=== PATIENT | female | born 1950 | race Caucasian/White ===

== ENCOUNTER 2016-06-22 14:58 | Emergency (ER) | payer MEDICARE ==
[2016-06-22 15:12] VITALS: BP 127/94; PULSE 92; RESP 20; TEMP 97.5
[2016-06-22] MEDS ORDERED: DIPH,PERTUS(ACELL)TETVAC-LF 0.5 ML VIAL IM ONE (15:27)
[2016-06-22] MEDS ORDERED: TOPICAL SKIN ADHESIVE 1 EACH AMP TOPICAL ONE (15:27)
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
== END 2016-06-22 19:50 | disposition home or self-care (01) ==
LOC: EC 14:58
DX: S61.210A Laceration without foreign body of right index finger without damage to nail, initial encounter (principal); F10.129 Alcohol abuse with intoxication, unspecified; J44.9 Chronic obstructive pulmonary disease, unspecified; M79.7 Fibromyalgia; E11.9 Type 2 diabetes mellitus without complications; E07.9 Disorder of thyroid, unspecified; I25.2 Old myocardial infarction; F41.8 Other specified anxiety disorders; G25.81 Restless legs syndrome; Z23 Encounter for immunization; Z87.19 Personal history of other diseases of the digestive system; Z87.01 Personal history of pneumonia (recurrent); Z85.41 Personal history of malignant neoplasm of cervix uteri; Z87.891 Personal history of nicotine dependence; Z79.52 Long term (current) use of systemic steroids; Z79.84 Long term (current) use of oral hypoglycemic drugs; Z79.899 Other long term (current) drug therapy; Z79.51 Long term (current) use of inhaled steroids; Z90.710 Acquired absence of both cervix and uterus; W18.30XA Fall on same level, unspecified, initial encounter; Y09 Assault by unspecified means; Y92.009 Unspecified place in unspecified non-institutional (private) residence as the place of occurrence of the external cause
CPT/HCPCS: 12001; 82075; 90715; 99284

== ENCOUNTER 2016-11-02 07:32 | Day surgery (SDC) | payer MEDICARE ==
[2016-10-28 16:30] VITALS: BMI 27.4
[~2016-11-02 07:32] MED LIST: LACTATED RINGERS 1,000 ML IV SCH
[2016-11-02] MEDS ORDERED: LACTATED RINGERS 1,000 ML IV ONE (07:37)
[2016-11-02 07:51] LABS: Glucose,Whole Blood 262 mg/dL (75-99)
[2016-11-02 07:54] VITALS: TEMP 98
[2016-11-02] MEDS ORDERED: PROPOFOL 10 MG/ML 20 ML VIAL IV ONE (08:20)
[2016-11-02] MEDS ORDERED: IV FLUID CONTINUATION 1,000 ML IV ONE (08:58)
--- NOTE | 2016-11-02 09:13 | P.PCN ---
Date of Procedure: 11/02/16 Preoperative Diagnosis: Postoperative Diagnosis: Procedure(s) Performed: Procedure: Total colonoscopy. Preoperative diagnosis: Screening for neoplasia, patient has history of polyps. Postoperative diagnosis: Less than ideal preparation with no significant findings. Preparation: HalfLytely prep. Sedation: Was provided by anesthesia. Brief clinical history: The patient is a 66-year-old female who is scheduled for this evaluation for screening for neoplasia because of history of polyps. Her last exam was several years ago. Procedure: With the patient on her left lateral decubitus position and after informed consent and adequate sedation, the perianal area was inspected and it did not show any fissures or fistulas. There were no masses felt on digital rectal examination. The Olympus CFQ 160L video colonoscope was then inserted in the rectum in the usual fashion and advanced to the cecum. Unfortunately, the preparation was less than ideal and there was significant amount of fecal material that I could not wash off or suction completely. Where visualized the mucosa appeared healthy. No obvious diverticular disease. There was no large polyps or cancer. A diminutive polyp was seen in the right colon but I was not able to remove because of the amount of stools around it. The patient tolerated the procedure well. Plan: I summarized the findings to the patient and I recommended a repeat exam in 3-5 years, possibly after a 2 day preparation. She will follow-up with you as planned. Implants: Indications for Procedure: Operative Findings: Description of Procedure:
[2016-11-02 09:14] VITALS: PULSE 86
[2016-11-02 09:23] LABS: Glucose,Whole Blood 241 mg/dL (75-99)
[2016-11-02 09:24] VITALS: BP 129/81; RESP 20
== END 2016-11-02 10:08 | disposition home or self-care (01) ==
LOC: ORWHC2ENDO 07:32
DX: Z12.11 Encounter for screening for malignant neoplasm of colon (principal); Z86.010 Personal history of colon polyps; K63.5 Polyp of colon; G57.93 Unspecified mononeuropathy of bilateral lower limbs; J44.9 Chronic obstructive pulmonary disease, unspecified; J45.909 Unspecified asthma, uncomplicated; E11.9 Type 2 diabetes mellitus without complications; E07.9 Disorder of thyroid, unspecified; M79.7 Fibromyalgia; I25.2 Old myocardial infarction; Z79.84 Long term (current) use of oral hypoglycemic drugs; Z79.4 Long term (current) use of insulin; Z79.51 Long term (current) use of inhaled steroids; Z79.899 Other long term (current) drug therapy
CPT/HCPCS: J2704; G0105

== ENCOUNTER 2017-02-02 04:37 | Inpatient (IN) | payer MEDICARE ==
[2017-02-02 04:46] LABS: Glucose,Whole Blood 563 mg/dL (75-99)
[2017-02-02] MEDS ORDERED: SODIUM CHLORIDE 0.9% 500 ML IV STA (04:52)
--- NOTE | 2017-02-02 04:58 | ED ---
General Adult HPI - General Chief complaint: Shortness of Breath Stated complaint: Blood Sugar Time Seen by Provider: 02/02/17 04:40 Source: patient, EMS Mode of arrival: EMS Limitations: no limitations - History of Present Illness Initial comments: Patient is 66-year-old woman by EMS with a number of complaints, including the fact that she had a fall, she has low abdominal pain, she has chest pain, she feels lightheaded and short of breath. This all symptoms been going on over 24 hours. She is not able to characterize the pains well. In addition she noted that her blood sugar was high. Onset/Timin -: days(s) Location: chest, abdomen Radiation: non-radiation Quality: aching Consistency: constant Improves with: none Worsens with: none Associated Symptoms: chest pain, shortness of breath Treatments Prior to Arrival: none - Related Data Home Medications Medication Instructions Recorded Confirmed Arformoterol Tartrate [Brovana] 15 mcg INHALATION RT-BID 05/16/15 11/02/16 Beclomethasone Dipropionate [Qvar 2 puff INHALATION RT-BID 05/16/15 11/02/16 80 mcg/puff] Furosemide [Lasix] 20 mg PO DAILY 05/16/15 11/02/16 Glimepiride [Amaryl] 1.5 tab PO AC-BID 05/16/15 11/02/16 HYDROcodone/APAP 10-325MG [[place] 1 tab PO Q4-6H PRN 05/16/15 10/28/16 10-325] Ipratropium Nebulized [Atrovent 0.5 mg INHALATION QID 05/16/15 11/02/16 Nebulized] clonazePAM [KlonoPIN] 1 mg PO DAILY PRN 05/16/15 11/02/16 metFORMIN HCL [metFORMIN HCL ER] 750 mg PO BID 05/16/15 11/02/16 rOPINIRole HCL [Requip] 2 mg PO HS 05/16/15 11/02/16 Budesonide [Pulmicort] 0.5 mg INHALATION BID 05/17/16 11/02/16 Levothyroxine Sodium [Synthroid] 125 mcg PO DAILY 05/17/16 11/02/16 Cyclobenzaprine HCl 10 mg PO HS 10/28/16 11/02/16 [Cyclobenzaprine HCl] Diazepam [Valium] 5 mg PO HS 10/28/16 11/02/16 Gabapentin [Neurontin] 100 mg PO TID 10/28/16 11/02/16 Insulin Glargine,Hum.rec.anlog 20 units SQ HS 10/28/16 11/02/16 [Toujany Solostar] Allergies Allergy/AdvReac Type Severity Reaction Status Date / Time No Known Allergies Allergy Verified 02/02/17 07:06 Review of Systems ROS Statement: Those systems with pertinent positive or pertinent negative responses have been documented in the HPI. ROS Other: All systems not noted in ROS Statement are negative. Constitutional: Reports: weakness Respiratory: Reports: cough, dyspnea Cardiovascular: Reports: chest pain Gastrointestinal: Reports: abdominal pain Genitourinary: Reports: dysuria Musculoskeletal: Denies: back pain Skin: Denies: rash Neurological: Reports: weakness. Denies: numbness, paresthesias Past Medical History Past Medical History: Cancer, Chest Pain / Angina, COPD, Diabetes Mellitus, Fibromyalgia, Sleep Apnea/CPAP/BIPAP, Thyroid Disorder Additional Past Medical History / Comment(s): Hx of Fractured Pelvis, RLS. PNA , PAST HX Stress Incontinence. Cervical Cancer. PVD. Neuropathy bilateral legs OCC. Cervical DDD. hypotensive episode - DENIES. DENIES [place]. Last Myocardial Infarction Date:: 2014? History of Any Multi-Drug Resistant Organisms: None Reported Past Surgical History: Section, Heart Catheterization, Hysterectomy Additional Past Surgical History / Comment(s): Surgery for Ectopic Preg, C-S X2 , EXC Jamil cataracts. COLONOSCOPY. Past Anesthesia/Blood Transfusion Reactions: Previous Problems w/ Anesthesia Additional Past Anesthesia/Blood Transfusion Reaction / Comment(s): States felt pain with block for X1. Past Psychological History: Anxiety, Depression Smoking Status: Current every day smoker - Past Family History Father Family Medical History: Coronary Artery Disease (CAD) Sister(s) Family Medical History: COPD Mother Family Medical History: Seizure Disorder Additional Family Medical History / Comment(s): BRAIN ANEURYSM General Exam Limitations: no limitations General appearance: alert, in no apparent distress Head exam: Present: atraumatic, normocephalic Eye exam: Present: normal appearance. Absent: scleral icterus, conjunctival injection ENT exam: Present: mucous membranes dry Neck exam: Present: normal inspection, full ROM Respiratory exam: Present: normal lung sounds bilaterally. Absent: respiratory distress, wheezes, rales, rhonchi, stridor Cardiovascular Exam: Present: normal rhythm, tachycardia, normal heart sounds. Absent: systolic murmur, diastolic murmur, rubs, gallop GI/Abdominal exam: Present: soft, tenderness (There is mild diffuse tenderness without rebound or guarding), diminished bowel sounds. Absent: distended, guarding, rebound, rigid, mass, pulsatile mass, hernia Extremities exam: Present: normal inspection, normal capillary refill. Absent: pedal edema, calf tenderness Back exam: Present: normal inspection. Absent: CVA tenderness (R), CVA tenderness (L) Neurological exam: Present: alert Skin exam: Present: warm, dry, intact, normal color. Absent: rash Course Vital Signs 02/02/17 02/02/17 04:38 07:08 Temperature 97.9 F Pulse Rate 124 H 74 Respiratory 22 18 Rate Blood Pressure 116/64 118/61 O2 Sat by Pulse 97 100 Oximetry EKG Findings - EKG Results: EKG: interpreted by NICKY, sinus rhythm, normal axis EKG shows: tachycardia (Rate approximately 121 bpm) Medical Decision Making - Lab Data Result diagrams: 02/02/17 04:50 02/02/17 04:50 Lab Results 02/02/17 02/02/17 02/02/17 Range/Units 04:44 04:50 04:50 WBC (3.8-10.6) k/uL RBC (3.80-5.40) m/uL Hgb (11.4-16.0) gm/dL Hct (34.0-46.0) % MCV (80.0-100.0) fL MCH (25.0-35.0) pg MCHC (31.0-37.0) g/dL RDW (11.5-15.5) % Plt Count (150-450) k/uL Sodium 130 L (137-145) mmol/L Potassium 5.3 H (3.5-5.1) mmol/L Chloride 94 L (98-107) mmol/L Carbon Dioxide 8 L* (22-30) mmol/L Anion Gap 28 mmol/L BUN 28 H (7-17) mg/dL Creatinine 1.29 H (0.52-1.04) mg/dL Est GFR (MDRD) Af Amer 50 (>60 ml/min/1.73 sqM) Est GFR (MDRD) Non-Af 42 (>60 ml/min/1.73 sqM) Glucose 607 H* (74-99) mg/dL POC Glucose (mg/dL) 563 H (75-99) mg/dL POC Glu Mail Messenger ID Radha Gray Plasma Lactic Acid Mustapha (0.7-2.0) mmol/L Calcium 9.0 (8.4-10.2) mg/dL Total Bilirubin 1.3 (0.2-1.3) mg/dL AST 28 (14-36) U/L ALT 7 L (9-52) U/L Alkaline Phosphatase 123 (38-126) U/L Troponin I (0.000-0.034) ng/mL Total Protein 6.0 L (6.3-8.2) g/dL Albumin 3.5 (3.5-5.0) g/dL Amylase 85 (30-110) U/L Lipase 29 (23-300) U/L Urine Color Urine Appearance (Clear) Urine pH (5.0-8.0) Ur Specific [place] (1.001-1.035) Urine Protein (Negative) Urine Glucose (UA) (Negative) Urine Ketones (Negative) Urine Blood (Negative) Urine Nitrite (Negative) Urine Bilirubin (Negative) Urine Urobilinogen (<2.0) mg/dL Ur Leukocyte Esterase (Negative) Urine RBC (0-5) /hpf Urine WBC (0-5) /hpf Ur Squamous Epith Cells (0-4) /hpf Urine Bacteria (None) /hpf Hyaline Casts (0-2) /lpf Urine Mucus (None) /hpf Acetone, Qual Positive (Negative) 02/02/17 02/02/17 02/02/17 Range/Units 04:50 04:50 04:50 WBC 13.6 H (3.8-10.6) k/uL RBC 5.07 (3.80-5.40) m/uL Hgb 14.9 (11.4-16.0) gm/dL Hct 47.6 H (34.0-46.0) % MCV 94.0 (80.0-100.0) fL MCH 29.4 (25.0-35.0) pg MCHC 31.3 (31.0-37.0) g/dL RDW 15.9 H (11.5-15.5) % Plt Count 270 (150-450) k/uL Sodium (137-145) mmol/L Potassium (3.5-5.1) mmol/L Chloride (98-107) mmol/L Carbon Dioxide (22-30) mmol/L Anion Gap mmol/L BUN (7-17) mg/dL Creatinine (0.52-1.04) mg/dL Est GFR (MDRD) Af Amer (>60 ml/min/1.73 sqM) Est GFR (MDRD) Non-Af (>60 ml/min/1.73 sqM) Glucose (74-99) mg/dL POC Glucose (mg/dL) (75-99) mg/dL POC Glu Mail Messenger ID Plasma Lactic Acid Must[place]ha 1.5 (0.7-2.0) mmol/L Calcium (8.4-10.2) mg/dL Total Bilirubin (0.2-1.3) mg/dL AST (14-36) U/L ALT (9-52) U/L Alkaline Phosphatase (38-126) U/L Troponin I <0.012 (0.000-0.034) ng/mL Total Protein (6.3-8.2) g/dL Albumin (3.5-5.0) g/dL Amylase (30-110) U/L Lipase (23-300) U/L Urine Color Urine Appearance (Clear) Urine pH (5.0-8.0) Ur Specific [place] (1.001-1.035) Urine Protein (Negative) Urine Glucose (UA) (Negative) Urine Ketones (Negative) Urine Blood (Negative) Urine Nitrite (Negative) Urine Bilirubin (Negative) Urine Urobilinogen (<2.0) mg/dL Ur Leukocyte Esterase (Negative) Urine RBC (0-5) /hpf Urine WBC (0-5) /hpf Ur Squamous Epith Cells (0-4) /hpf Urine Bacteria (None) /hpf Hyaline Casts (0-2) /lpf Urine Mucus (None) /hpf Acetone, Qual (Negative) 02/02/17 Range/Units 05:00 WBC (3.8-10.6) k/uL RBC (3.80-5.40) m/uL Hgb (11.4-16.0) gm/dL Hct (34.0-46.0) % MCV (80.0-100.0) fL MCH (25.0-35.0) pg MCHC (31.0-37.0) g/dL RDW (11.5-15.5) % Plt Count (150-450) k/uL Sodium (137-145) mmol/L Potassium (3.5-5.1) mmol/L Chloride (98-107) mmol/L Carbon Dioxide (22-30) mmol/L Anion Gap mmol/L BUN (7-17) mg/dL Creatinine (0.52-1.04) mg/dL Est GFR (MDRD) Af Amer (>60 ml/min/1.73 sqM) Est GFR (MDRD) Non-Af (>60 ml/min/1.73 sqM) Glucose (74-99) mg/dL POC Glucose (mg/dL) (75-99) mg/dL POC Glu Mail Messenger ID Plasma Lactic Acid Mustapha (0.7-2.0) mmol/L Calcium (8.4-10.2) mg/dL Total Bilirubin (0.2-1.3) mg/dL AST (14-36) U/L ALT (9-52) U/L Alkaline Phosphatase (38-126) U/L Troponin I (0.000-0.034) ng/mL Total Protein (6.3-8.2) g/dL Albumin (3.5-5.0) g/dL Amylase (30-110) U/L Lipase (23-300) U/L Urine Color Yellow Urine Appearance Cloudy H (Clear) Urine pH 5.0 (5.0-8.0) Ur Specific [place] 1.017 (1.001-1.035) Urine Protein Negative (Negative) Urine Glucose (UA) 4+ H (Negative) Urine Ketones 4+ H (Negative) Urine Blood Negative (Negative) Urine Nitrite Negative (Negative) Urine Bilirubin Negative (Negative) Urine Urobilinogen 2.0 (<2.0) mg/dL Ur Leukocyte Esterase Negative (Negative) Urine RBC 2 (0-5) /hpf Urine WBC 3 (0-5) /hpf Ur Squamous Epith Cells 2 (0-4) /hpf Urine Bacteria Rare H (None) /hpf Hyaline Casts 3 H (0-2) /lpf Urine Mucus Rare H (None) /hpf Acetone, Qual (Negative) Disposition Clinical Impression: DKA (diabetic ketoacidoses), Abdominal pain, Colitis Disposition: ADMITTED IP TO THIS HOSP Condition: Serious Referrals: Erna Eugene MD [Primary Care Provider] - 1-2 days
[2017-02-02 05:07] LABS: CH 29.6; CHCM 31.8; HCT 47.6 % (34.0-46.0); HDW 2.62; HGB 14.9 gm/dL (11.4-16.0); Immature Gran Flag Marked; MCH 29.4 pg (25.0-35.0); MCHC 31.3 g/dL (31.0-37.0); Mean Platelet Volume 9.2; RBC 5.07 m/uL (3.80-5.40); RDW 15.9 % (11.5-15.5); WBC 13.6 k/uL (3.8-10.6); WBC (Perox) 14.37
[2017-02-02] MEDS ORDERED: ONDANSETRON 4 MG/2 ML VIAL IVP STA (05:18)
[2017-02-02 05:26] LABS: Total Bilirubin 1.3 mg/dL (0.2-1.3)
[2017-02-02 05:44] LABS: Potassium 5.3 mmol/L (3.5-5.1)
--- NOTE | 2017-02-02 05:51 | CT ---
EXAM: CT Abdomen and Pelvis Without Intravenous Contrast CLINICAL HISTORY: Lower abdominal pain TECHNIQUE: Axial computed tomography images of the abdomen and pelvis without intravenous contrast. CTDI is 17.94 mGy and DLP is 919 mGy-cm. This CT exam was performed using one or more of the following dose reduction techniques: automated exposure control, adjustment of the mA and/or kV according to patient size, and/or use of iterative reconstruction technique. COMPARISON: 05/22/2015. FINDINGS: Lower thorax: Fluid is seen within the distal esophagus, which may represent gastric esophageal reflux. ABDOMEN: Liver: Unremarkable. Gallbladder and bile ducts: Unremarkable. No calcified stones. No ductal dilation. Pancreas: The pancreas appears atrophic. No ductal dilation. Spleen: Unremarkable. No splenomegaly. Adrenals: Unremarkable. No mass. Kidneys and ureters: Unremarkable. No obstructing stones. No hydronephrosis. Stomach and bowel: Wall thickening of the distal stomach is seen, which may represent infectious versus inflammatory gastritis. Gastric ulcer disease cannot be definitively excluded. There is wall thickening of the descending colon with associated surrounding pericolonic inflammatory changes consistent with infectious versus inflammatory colitis. Mildly prominent small bowel loops are seen, measuring up to 3 cm in diameter in the right lower quadrant, without definitive evidence of a transition point. Findings likely represent reactive ileus to the above-mentioned findings. Partial small bowel obstruction cannot be definitively excluded. Proximal stomach is distended, which may be secondary to the above-mentioned findings. Fecal material is seen within the distal small bowel, likely secondary to slow transit. Appendix: No findings to suggest acute appendicitis. PELVIS: Bladder: Unremarkable. No stones. Reproductive: Unremarkable as visualized. ABDOMEN and PELVIS: Intraperitoneal space: Small amount of pelvic free fluid is seen, likely secondary to the above-mentioned findings. No evidence of a fluid collection. No free air. Bones/joints: Chronic fracture deformities of the pubic rami and right iliac bone are again noted. No dislocation. Soft tissues: Unchanged. Vasculature: Mild atherosclerotic vascular calcifications involving the intra-abdominal aorta are noted. No abdominal aortic aneurysm. Lymph nodes: Unremarkable. No enlarged lymph nodes. IMPRESSION: 1. Wall thickening of the distal stomach is seen, which may represent infectious versus inflammatory gastritis. Gastric ulcer disease cannot be definitively excluded. 2. Wall thickening of the descending colon with associated surrounding pericolonic inflammatory changes consistent with infectious versus inflammatory colitis. 3. Mildly prominent small bowel loops, measuring up to 3 cm in diameter in the right lower quadrant, without definitive evidence of a transition point. Findings likely represent reactive ileus to the above-mentioned findings. Partial small bowel obstruction cannot be definitively excluded. If there is further clinical concern, repeat CT of the abdomen with oral and IV contrast recommended for further evaluation.
[2017-02-02 06:09] LABS: Appearance,Urine Cloudy (Clear); Bacteria,Urine Rare /hpf; Bilirubin,Urine Negative (Negative); Glucose,Urine (UA) 4+ (Negative); Leukocyte Esterase,Urine Negative (Negative); Mucus,Urine Rare /hpf; Nitrite,Urine Negative (Negative); Particle Count 7193; Protein,Urine Negative (Negative); RBC,Urine 2 /hpf (0-5); Specific Gravity,Urine 1.017 (1.001-1.035); Squamous Epithelial Cell,Urine 2 /hpf (0-4); UA Billing (MACRO vs. MICRO) MICRO; WBC,Urine 3 /hpf (0-5)
[2017-02-02] MEDS ORDERED: LEVOFLOXACIN 750MG-D5W PMX 750 MG in DEXTROSE/WATER 1 150ML.BAG IVPB STA (06:33)
[2017-02-02] MEDS ORDERED: metroNIDAZOLE-NS PMX 500 MG in SALINE 1 100ML.BAG IVPB STA (06:33)
[2017-02-02] MEDS ORDERED: INSULIN REGULAR BOLUS (FROM DRIP BAG) IV ONE (06:36)
[2017-02-02 06:42] LABS: Ketones,Urine 4+ (Negative)
[2017-02-02] MEDS: INSULIN REGULAR 100 UNIT in SODIUM CHLORIDE 0.9% 100 ML IV SCH ×2 (06:52→17:39)
[2017-02-02] MEDS: SODIUM CHLORIDE 0.9% 1,000 ML IV SCH ×2 (06:52→12:19)
[2017-02-02] MEDS ORDERED: MORPHINE SULFATE 4 MG/ML SYRINGE IVP STA (07:04)
[2017-02-02 07:11] LABS: Add Differential Manual Differential
[2017-02-02 07:18] LABS: Band Neutrophils % 23 %; Manual Review Performed; Metamyelocytes % 2 %; Nucleated Red Blood Cells 0 /100 WBC (0-0); Total Cells Counted 200
[2017-02-02 07:19] LABS: Toxic Granulation Present
[2017-02-02 08:21] LABS: Glucose,Whole Blood 442 mg/dL (75-99)
[2017-02-02 09:13] LABS: Anion Gap 21 mmol/L; Blood Urea Nitrogen 27 mg/dL (7-17); Carbon Dioxide 11 mmol/L (22-30); Chloride 102 mmol/L (98-107); Glucose 368 mg/dL (74-99); Non-African American GFR(MDRD) 51 (>60 ml/min/1.73 sqM); Phosphorous 3.3 mg/dL (2.5-4.5); Potassium 3.3 mmol/L (3.5-5.1); Sodium 134 mmol/L (137-145)
[2017-02-02 09:35] LABS: Glucose,Whole Blood 333 mg/dL (75-99)
[2017-02-02] MEDS ORDERED: HYDROcodone/APAP 10-325MG 1 EACH TAB PO ONE (10:57)
[2017-02-02] MEDS ORDERED: clonazePAM 0.5 MG TAB PO PRN (11:37)
[2017-02-02] MEDS ORDERED: ALBUTEROL NEBULIZED 2.5 MG/3 ML INHALATION PRN (11:37)
[2017-02-02] MEDS: D5-0.45% NACL WITH KCL 20MEQ/L 1,000 ML IV SCH ×2 (12:17→18:39)
--- NOTE | 2017-02-02 12:21 | P.HPIM ---
History of Present Illness H&P Date: 02/02/17 Chief Complaint: DKA/colitis This is a 66-year-old female in of Dr. Eugene with a previous medical history significant for a mild coronary artery disease involving the LAD 20-30% , LCx 20-30%, and ostial lesion of the diagonal branch of 40%, diabetes mellitus 2, chronic tobacco use and dependence with a chronic obstructive pulmonary disease, patient was brought into the emergency department at [facility] after she had an episode of the abdominal pain left sided associated with generalized weakness and patient was going to the bathroom yesterday and she had a syncopal episode, she had checked her blood glucose level was high patient ended up coming to the ER at [place] and she was found to have a diabetic ketoacidosis with a bicarb level of 8 her blood glucose levels were greater than 600 she ended up going for a computed tomography scan of the abdomen that did show significant colitis of the left lower quadrant as well as significant induration of the stomach at that time. Patient was started on IV antibiotic in the form of Levaquin 500 mg IV piggyback every 24 hours as well as Flagyl 500 mg IV piggyback every 8 hours, she was placed on insulin drip, she was admitted to the hospital for further evaluation and general surgery consultation was obtained as well as GI consultation. Her lactic acid was 1.5, she was placed on IV fluid resuscitation as well and the patient will have repeated lactic acid in the next 6 hours. Review of Systems Constitutional: Reports chronic pain, Denies anorexia, Denies chronic headaches , Denies lethargy, Denies malaise Eyes: denies blurred vision, denies bulging eye, denies decreased vision Ears: deny: decreased hearing Ears, nose, mouth and throat: Denies dysphagia, Denies neck lump, Denies sore throat Cardiovascular: Denies chest pain, Denies decreased exercise tolerance, Denies dyspnea on exertion, Denies high blood pressure, Denies phlebitis, Denies rapid heart beat, Denies shortness of breath Gastrointestinal: Reports abdominal pain, Reports bloating, Reports diarrhea, Reports nausea, Denies heartburn, Denies hematemesis, Denies hematochezia, Denies melena, Denies vomiting Genitourinary: Denies dysuria, Denies hematuria Menstruation: Reports postmenopausal Musculoskeletal: Denies myalgias Musculoskeletal: absent: ankle pain, ankle stiffness, ankle swelling, elbow pain , elbow stiffness, elbow swelling, foot pain, foot stiffness, foot swelling, hand pain, hand stiffness, hand swelling, hip pain, hip stiffness, hip swelling , knee pain, knee stiffness, knee swelling, shoulder pain, shoulder stiffness, shoulder swelling, wrist pain, wrist stiffness, wrist swelling Integumentary: Denies pruritus, Denies rash Neurological: Denies numbness, Denies weakness Psychiatric: Denies anxiety, Denies depression Endocrine: Denies fatigue, Denies weight change Past Medical History Past Medical History: Cancer, Chest Pain / Angina, COPD, Diabetes Mellitus, Fibromyalgia, Hyperlipidemia, Pneumonia, Sleep Apnea/CPAP/BIPAP, Thyroid Disorder, Vascular Disorder Additional Past Medical History / Comment(s): Takosubo syndrome 2013, cervical cancer/hysterectomy, IDDM type II, neuropathy bilateral legs on occasion, JOSE without device, cervical DDD, past fractured pelvis, RLS, PVD, hypothyroid, benign colon polyyps-removed. Last Myocardial Infarction Date:: 2014? History of Any Multi-Drug Resistant Organisms: None Reported Past Surgical History: Section, Heart Catheterization, Hysterectomy, Tubal Ligation Additional Past Surgical History / Comment(s): 1 fallopian tube removed d/t ectopic , bilateral cataract removal with lens implants, colonoscopies/ benign polypectomies. Past Anesthesia/Blood Transfusion Reactions: Previous Problems w/ Anesthesia Additional Past Anesthesia/Blood Transfusion Reaction / Comment(s): States felt pain with X1. Smoking Status: Current every day smoker - Past Family History Father Family Medical History: Coronary Artery Disease (CAD), Myocardial Infarction (ND ) Additional Family Medical History / Comment(s): Father at the age of 52 yrs from a ND. Sister(s) Family Medical History: COPD Mother Family Medical History: Seizure Disorder Additional Family Medical History / Comment(s): BRAIN ANEURYSM. Mother is 83 yrs old. Medications and Allergies Home Medications Medication Instructions Recorded Confirmed Type Beclomethasone Dipropionate [Qvar 2 puff INHALATION RT-BID 05/16/15 02/02/17 History 80 mcg/puff] Furosemide [Lasix] 20 mg PO DAILY 05/16/15 02/02/17 History HYDROcodone/APAP 10-325MG [Serena 1 tab PO Q4-6H PRN 05/16/15 02/02/17 History 10-325] Ipratropium Nebulized [Atrovent 0.5 mg INHALATION RT-Q6H 05/16/15 02/02/17 History Nebulized] clonazePAM [KlonoPIN] 0.5 - 1 mg PO DAILY PRN 05/16/15 02/02/17 History metFORMIN HCL [metFORMIN HCL ER] 750 mg PO BID 05/16/15 02/02/17 History rOPINIRole HCL [Requip] 2 mg PO HS 05/16/15 02/02/17 History Levothyroxine Sodium [Synthroid] 125 mcg PO DAILY 05/17/16 02/02/17 History Cyclobenzaprine HCl 10 mg PO HS 10/28/16 02/02/17 History [Cyclobenzaprine HCl] Diazepam [Valium] 5 mg PO HS 10/28/16 02/02/17 History Gabapentin [Neurontin] 100 mg PO TID 10/28/16 02/02/17 History Albuterol Sulfate [Proair Hfa] 2 puff INHALATION RT-Q4H PRN 02/02/17 02/02/17 History Aspirin EC [Ecotrin Low Dose] 81 mg PO DAILY 02/02/17 02/02/17 History Bisacodyl 10 mg PO DAILY PRN 02/02/17 02/02/17 History Ergocalciferol [Vitamin D2] 50,000 unit PO Q7D 02/02/17 02/02/17 History Fluticasone Nasal [place] [Flonase 1 spr EA NOSTRIL BID 02/02/17 02/02/17 History Nasal Anabel] Glimepiride [Amaryl] 4 mg PO AC-BID 02/02/17 02/02/17 History Insulin Glargine [Lantus] 20 unit SQ HS 02/02/17 02/02/17 History Potassium Chloride ER [K-Dur 10] 10 meq PO W/BRKFST 02/02/17 02/02/17 History Pravastatin Sodium [Pravachol] 20 mg PO DAILY 02/02/17 02/02/17 History Allergies Allergy/AdvReac Type Severity Reaction Status Date / Time No Known Allergies Allergy Verified 02/02/17 07:06 Physical Exam Vitals: Vital Signs Temp Pulse Resp BP Pulse Ox 02/02/17 11:03 96.9 F L 108 H 16 109/59 92 L 02/02/17 10:07 106 H 18 100/59 94 L 02/02/17 07:08 74 18 118/61 100 02/02/17 04:38 97.9 F 124 H 22 116/64 97 Intake and Output 02/01/17 02/02/17 02/02/17 22:59 06:59 14:59 Other: Weight 70.307 kg - Constitutional General appearance: mild distress - EENT Eyes: anicteric sclerae, EOMI, PERRLA, no ptosis, no scleral icterus, normal appearance ENT: hearing grossly normal, NA/AT, normal oropharynx, no thrush Ears: bilateral: normal - Neck Neck: no lymphadenopathy, normal ROM, no rigidity, no stridor, no thyromegaly Carotids: bilateral: upstroke normal Thyroid: bilateral: normal size - Respiratory Respiratory: bilateral: diminished, negative: dullness, rales, rhonchi, wheezing , prolonged expiration, prolonged inspiration - Cardiovascular Rhythm: regular Heart sounds: normal: S1, S2 Abnormal Heart Sounds: systolic murmur, no S3 Gallop, no S4 Gallop, no click - Gastrointestinal General gastrointestinal: normal bowel sounds, soft, tenderness, no umbilical hernia, no ventral hernia Localized gastrointestinal: tender: LLQ - Integumentary Integumentary: normal, normal turgor - Neurologic Neurologic: CNII-XII intact - Musculoskeletal Musculoskeletal: generalized weakness, strength equal bilaterally - Psychiatric Psychiatric: A&O x's 3, appropriate affect, intact judgment & insight Results CBC & Chem 7: 02/02/17 04:50 02/02/17 20:05 Labs: Abnormal Lab Results - Last 24 Hours (Table) 02/02/17 02/02/17 02/02/17 Range/Units 04:44 04:50 04:50 WBC 13.6 H (3.8-10.6) k/uL Hct 47.6 H (34.0-46.0) % RDW 15.9 H (11.5-15.5) % Neutrophils # (Manual) 11.40 H (1.3-7.7) k/uL Lymphocytes # (Manual) 0.95 L (1.0-4.8) k/uL Monocytes # (Manual) 1.09 H (0-1.0) k/uL Metamyelocytes # (Man) 0.27 H (0) k/uL Sodium 130 L (137-145) mmol/L Potassium 5.3 H (3.5-5.1) mmol/L Chloride 94 L (98-107) mmol/L Carbon Dioxide 8 L* (22-30) mmol/L BUN 28 H (7-17) mg/dL Creatinine 1.29 H (0.52-1.04) mg/dL Glucose 607 H* (74-99) mg/dL POC Glucose (mg/dL) 563 H (75-99) mg/dL ALT 7 L (9-52) U/L Total Protein 6.0 L (6.3-8.2) g/dL Urine Appearance (Clear) Urine Glucose (UA) (Negative) Urine Ketones (Negative) Urine Bacteria (None) /hpf Hyaline Casts (0-2) /lpf Urine Mucus (None) /hpf 02/02/17 02/02/17 02/02/17 Range/Units 05:00 08:19 08:36 WBC (3.8-10.6) k/uL Hct (34.0-46.0) % RDW (11.5-15.5) % Neutrophils # (Manual) (1.3-7.7) k/uL Lymphocytes # (Manual) (1.0-4.8) k/uL Monocytes # (Manual) (0-1.0) k/uL Metamyelocytes # (Man) (0) k/uL Sodium 134 L (137-145) mmol/L Potassium 3.3 L (3.5-5.1) mmol/L Chloride (98-107) mmol/L Carbon Dioxide 11 L (22-30) mmol/L BUN 27 H (7-17) mg/dL Creatinine 1.08 H (0.52-1.04) mg/dL Glucose 368 H (74-99) mg/dL POC Glucose (mg/dL) 442 H (75-99) mg/dL ALT (9-52) U/L Total Protein (6.3-8.2) g/dL Urine Appearance Cloudy H (Clear) Urine Glucose (UA) 4+ H (Negative) Urine Ketones 4+ H (Negative) Urine Bacteria Rare H (None) /hpf Hyaline Casts 3 H (0-2) /lpf Urine Mucus Rare H (None) /hpf 02/02/17 Range/Units 09:32 WBC (3.8-10.6) k/uL Hct (34.0-46.0) % RDW (11.5-15.5) % Neutrophils # (Manual) (1.3-7.7) k/uL Lymphocytes # (Manual) (1.0-4.8) k/uL Monocytes # (Manual) (0-1.0) k/uL Metamyelocytes # (Man) (0) k/uL Sodium (137-145) mmol/L Potassium (3.5-5.1) mmol/L Chloride (98-107) mmol/L Carbon Dioxide (22-30) mmol/L BUN (7-17) mg/dL Creatinine (0.52-1.04) mg/dL Glucose (74-99) mg/dL POC Glucose (mg/dL) 333 H (75-99) mg/dL ALT (9-52) U/L Total Protein (6.3-8.2) g/dL Urine Appearance (Clear) Urine Glucose (UA) (Negative) Urine Ketones (Negative) Urine Bacteria (None) /hpf Hyaline Casts (0-2) /lpf Urine Mucus (None) /hpf Thrombosis Risk Factor Assmnt - DVT/VTE Prophylaxis DVT/VTE Prophylaxis: Pharmacologic Prophylaxis ordered, Mechanical Prophylaxis ordered - Choose All That Apply Any of the Below Risk Factors Present?: Yes Each Factor Represents 1 point: Abnormal pulmonary function (COPD) Other Risk Factors: Yes Each Risk Factor Represents 2 Points: Age 61-74 years, Malignancy Other congenital or acquired thrombophilia - If yes, enter type in comment: No Thrombosis Risk Factor Assessment Total Risk Factor Score: 5 Thrombosis Risk Factor Assessment Level: High Risk Assessment and Plan Plan: 1. Acute colitis possibly infectious Vs Ischemic. patient will be started on Levaquin 500 mg piggyback every 24 hours as well as Flagyl 500 mg piggyback every 8 hours, GI consultation from Dr. Mcfarland patient did have a colonoscopy in October [address] Grande that was totally normal. A did show small polyp that was benign., Keep the patient on nothing per mouth except for sips of water. 2. Diabetic ketoacidosis. Continue IV fluid resuscitation, continue patient on insulin drip, continue to monitor blood glucose level every hour, monitor the patient BMP and phosphorus every 4-6 hours. 2. COPD. we will continue the patient on Pulmicort 1 mg nebulization twice every day, continue DuoNeb 3 mg nebulization 4 times every day. 3. CAD post left heart catheterization. Continue aspirin 81 mg once every day and pravastatin 20 mg at bedtime. 4. Diabetes mellitus type 2 uncontrolled . Currently on insulin drip, we will continue insulin drip for the next 24 hours and we'll transition to her Lantus and Humalog in the next week 4 hours. 5. Hypothyroidism. We will continue levothyroxin 125 g orally once every day. 6. RLS . Continue patient on Requip 2 mg orally bedtime along with Klonopin 0.5 mg at bedtime. 7. Degenerative disc disease of the cervical spine. Continue Flexeril 10 mg orally 3 times every day along with the gabapentin 100 mg orally 2 times every day ND continue Serena as needed for pain. 8. Hyperlipidemia. Continue pravastatin 20 mg at bedtime. 9. Vitamin D deficiency. Hold vitamin D supplement for now. 10. DVT prophylaxis. Continue with Lovenox 40 mg subcutaneously every 24 hours. Bilateral knee-high GOGO hose. 11. GI prophylaxis. Continue Protonix 40 mg orally once every day. 12. Estimated length of stay 2 days. 13. Full code.
[2017-02-02 13:24] LABS: Anion Gap 11 mmol/L; Blood Urea Nitrogen 26 mg/dL (7-17); Carbon Dioxide 19 mmol/L (22-30); Chloride 102 mmol/L (98-107); Glucose 227 mg/dL (74-99); Non-African American GFR(MDRD) >60 (>60 ml/min/1.73 sqM); Phosphorous 2.2 mg/dL (2.5-4.5); Potassium 3.3 mmol/L (3.5-5.1); Sodium 132 mmol/L (137-145)
[2017-02-02 14:06] LABS: Glucose,Whole Blood 313 mg/dL (75-99)
[2017-02-02 14:07] LABS: Glucose,Whole Blood 250 mg/dL (75-99)
[2017-02-02 14:08] LABS: Glucose,Whole Blood 232 mg/dL (75-99)
[2017-02-02 14:13] LABS: Glucose,Whole Blood 281 mg/dL (75-99)
[2017-02-02] MEDS: GABAPENTIN 100 MG CAP PO SCH ×3 (14:28→19:50)
[2017-02-02] MEDS: ENOXAPARIN 40 MG/0.4 ML SYRINGE SQ SCH (14:29)
[2017-02-02 15:46] LABS: Glucose,Whole Blood 307 mg/dL (75-99)
[2017-02-02] MEDS: IPRATROPIUM 0.5 MG/2.5 ML NEBU INHALATION SCH ×2 (16:12→20:33)
[2017-02-02] MEDS: HYDROcodone/APAP 10-325MG 1 EACH TAB PO PRN (16:20)
[2017-02-02] MEDS: metroNIDAZOLE-NS PMX 500 MG in SALINE 1 100ML.BAG IVPB SCH ×2 (16:21→23:54)
[2017-02-02 16:39] LABS: Glucose,Whole Blood 320 mg/dL (75-99)
[2017-02-02 17:38] LABS: Glucose,Whole Blood 285 mg/dL (75-99)
[2017-02-02 18:37] LABS: Glucose,Whole Blood 295 mg/dL (75-99)
--- NOTE | 2017-02-02 18:56 | ECHOF ---
Referral Reason:lvf MEASUREMENTS -------- HEIGHT: 167.6 cm WEIGHT: 70.3 kg BP: 109/59 IVSd: 1.0 cm (0.6 - 1.1) LVIDd: 2.9 cm (3.9 - 5.3) LVPWd: 1.0 cm (0.6 - 1.1) EDV(Teich): 32 ml IVSs: 1.3 cm LVIDs: 1.7 cm LVPWs: 1.2 cm %IVS Thck: 26 % ESV(Teich): 8 ml EF(Teich): 75 % %FS: 42 % SV(Teich): 24 ml LALs A4C: 3.7 cm LAAs A4C: 9.8 cm LAESV A-L A4C: 22 ml LAESV MOD A4C: 18 ml LALs A2C: 3.4 cm LAAs A2C: 10.1 cm LAESV A-L A2C: 26 ml LAESV MOD A2C: 24 ml LAESV(A-L): 25 ml LAESV Index (A-L): 13.88 ml/m Ao Diam: 3.2 cm (2.0 - 3.7) AV Cusp: 1.8 cm (1.5 - 2.6) LA Diam: 2.7 cm (2.7 - 3.8) MV E Frank: 0.58 m/s MV DecT: 303 ms MV Dec [place]: 1.9 m/s MV A Frank: 1.04 m/s MV E/A Ratio: 0.56 MV PHT: 88 ms E/E': 5.56 E': 0.10 m/s AV Vmax: 1.45 m/s AV maxP.38 mmHg TR Vmax: 1.15 m/s TR maxP.25 mmHg RAP: 5.00 mmHg RVSP: 10.25 mmHg FINDINGS -------- Resting tachycardia (HR>100bpm). This was a technically adequate study. Overall left ventricular systolic function is normal with, an EF between 65 - 70 %. The right ventricle is normal in size and function. Normal LA size by volume 22+/-6 ml/m2. The right atrium is normal in size. There is mild aortic valve sclerosis. There is no evidence of aortic regurgitation. There is no evidence of aortic stenosis. Mild mitral annular calcification present. There is trace mitral regurgitation. Trace tricuspid regurgitation present. There is no evidence of pulmonary hypertension. The right ventricular systolic pressure, as measured by Doppler, is 10.25mmHg. The pulmonic valve was not well visualized. The aortic root size is normal. Normal inferior vena cava with normal inspiratory collapse consistent with estimated right atrial pressure of 5 mmHg. The pericardium is normal. There is no pericardial effusion. CONCLUSIONS -------- 1. Resting tachycardia (HR>100bpm). 2. The right ventricular systolic pressure, as measured by Doppler, is 10.25mmHg. 3. The pulmonic valve was not well visualized. 4. The aortic root size is normal. 5. There is no pericardial effusion. 6. This was a technically adequate study. 7. Overall left ventricular systolic function is normal with, an EF between 65 - 70 %. 8. Normal LA size by volume 22+/-6 ml/m2. 9. There is mild aortic valve sclerosis. 10. Mild mitral annular calcification present. 11. There is trace mitral regurgitation. 12. Trace tricuspid regurgitation present. 13. There is no evidence of pulmonary hypertension. ELECTRICIAN STATION ASSISTANT: Alex Ortiz RDCS
[2017-02-02 19:33] LABS: Glucose,Whole Blood 237 mg/dL (75-99)
[2017-02-02] MEDS: DIAZEPAM 5 MG TAB PO SCH (19:50)
[2017-02-02] MEDS: CYCLOBENZAPRINE 10 MG TAB PO SCH (19:50)
[2017-02-02 20:30] LABS: Anion Gap 9 mmol/L; Blood Urea Nitrogen 23 mg/dL (7-17); Calcium 8.4 mg/dL (8.4-10.2); Carbon Dioxide 18 mmol/L (22-30); Chloride 103 mmol/L (98-107); Glucose 199 mg/dL (74-99); Non-African American GFR(MDRD) >60 (>60 ml/min/1.73 sqM); Phosphorous 1.5 mg/dL (2.5-4.5); Potassium 3.4 mmol/L (3.5-5.1); Sodium 130 mmol/L (137-145)
[2017-02-02] MEDS: BUDESONIDE 1 MG/2 ML NEBU INHALATION SCH (20:33)
[2017-02-02 20:36] LABS: Glucose,Whole Blood 447 mg/dL (75-99)
[2017-02-02 21:34] LABS: Glucose,Whole Blood 194 mg/dL (75-99)
[2017-02-02 22:33] LABS: Glucose,Whole Blood 107 mg/dL (75-99)
[2017-02-02] MEDS ORDERED: INSULIN GLARGINE 100 UNIT/ML 10 ML VIAL SQ SCH (23:15)
[2017-02-02 23:33] LABS: Glucose,Whole Blood 96 mg/dL (75-99)
[2017-02-03] MEDS: HYDROcodone/APAP 10-325MG 1 EACH TAB PO PRN ×6 (00:04→21:07)
[2017-02-03] MEDS: IPRATROPIUM 0.5 MG/2.5 ML NEBU INHALATION SCH ×4 (03:25→20:16)
[2017-02-03] MEDS: D5-0.45% NACL WITH KCL 20MEQ/L 1,000 ML IV SCH ×3 (03:27→16:20)
[2017-02-03 05:51] LABS: Glucose,Whole Blood 353 mg/dL (75-99)
[2017-02-03] MEDS: LEVOTHYROXINE 125 MCG TAB PO SCH (05:56)
[2017-02-03] MEDS: INSULIN LISPRO (humaLOG) 300 UNIT/3 ML VIAL SQ SCH ×6 (06:06→21:06)
[2017-02-03 06:49] LABS: Basophils % (A) 0 %; CH 29.9; CHCM 33.6; Eosinophils # (A) 0.1 k/uL (0-0.7); Eosinophils % (A) 1 %; HCT 37.3 % (34.0-46.0); HDW 2.66; HGB 12.2 gm/dL (11.4-16.0); Luc # (Auto) 0.15; Luc % (Auto) 2; Lymphocytes # (A) 0.4 k/uL (1.0-4.8); Lymphocytes % (A) 5 %; MCH 29.4 pg (25.0-35.0); MCHC 32.8 g/dL (31.0-37.0); MCV 89.7 fL (80.0-100.0); Mean Platelet Volume 8.4; Monocytes # (A) 0.5 k/uL (0-1.0); Monocytes % (A) 7 %; Neutrophils # (A) 6.3 k/uL (1.3-7.7); Neutrophils % (A) 85 %; RBC 4.16 m/uL (3.80-5.40); RDW 15.6 % (11.5-15.5); WBC 7.4 k/uL (3.8-10.6)
[2017-02-03 07:03] LABS: ALT 17 U/L (9-52); AST 13 U/L (14-36); Alkaline Phosphatase 89 U/L (38-126); Anion Gap 11 mmol/L; Blood Urea Nitrogen 18 mg/dL (7-17); Calcium 8.4 mg/dL (8.4-10.2); Carbon Dioxide 17 mmol/L (22-30); Chloride 101 mmol/L (98-107); Glucose 324 mg/dL (74-99); Magnesium 1.3 mg/dL (1.6-2.3); Non-African American GFR(MDRD) >60 (>60 ml/min/1.73 sqM); Potassium 4.2 mmol/L (3.5-5.1); Sodium 129 mmol/L (137-145); Total Bilirubin 0.8 mg/dL (0.2-1.3); Total Protein 4.7 g/dL (6.3-8.2)
[2017-02-03] MEDS ORDERED: INSULIN LISPRO (humaLOG) 300 UNIT/3 ML VIAL SQ SCH (07:30)
[2017-02-03] MEDS: GABAPENTIN 100 MG CAP PO SCH ×3 (08:13→21:06)
[2017-02-03] MEDS: ENOXAPARIN 40 MG/0.4 ML SYRINGE SQ SCH (08:13)
[2017-02-03] MEDS: ASPIRIN 81 MG CHEW PO SCH (08:13)
[2017-02-03] MEDS: PRAVASTATIN SODIUM 20 MG TAB PO SCH (08:13)
[2017-02-03] MEDS: MAGNESIUM SULFATE-D5W PMX 1 GM in DEXTROSE/WATER 1 100ML.BAG IVPB SCH ×4 (08:18→12:39)
[2017-02-03] MEDS: BUDESONIDE 1 MG/2 ML NEBU INHALATION SCH ×2 (08:29→20:16)
--- NOTE | 2017-02-03 10:16 | P.CONS ---
History of Present Illness - Reason for Consult Consult date: 02/03/17 colitis Requesting physician: Tanisha Orozco - History of Present Illness 66-year-old female admitted with lower abdominal pain, lightheadedness, generalized weakness, syncopal episode with elevated blood glucose level. CT abdomen and pelvis without IV contrast possible infectious versus inflammatory gastritis, wall thickening of the descending colon with pericolonic inflammatory changes consistent with infectious possible inflammatory colitis. Reports right-sided abdominal pain for about a week with a few days of loose nonbloody bowel movements 4-5 times daily been followed by a few days of constipation. Denies hematemesis hematochezia melena. No changes in medications. No recent antibiotics. No recent travels or changes in diet. No sick contacts. Colonoscopy 11/02/2016 screening for neoplasia was less than ideal preparation with no significant findings. No obvious diverticular disease, no large polyps or cancer. Diminutive polyp in the right colon unable to remove secondary to retained stool. White count 13.6. Hemoglobin 14.9. Platelet 270. 23% bandemia. Glucose 563. Positive acetone. Review of Systems Constitutional: Denies fever, chills, sweats, weight gain, or loss. HEENT: Negative for migraines, blurred vision or loss, earaches, drainage, tinnitus, oral mucosal lesions, dysphagia, or odynophagia. CARDIAC: Hyperlipidemia. Takosubo syndrome. RESPIRATORY: COPD. Sleep apnea. Negative for shortness of breath, hemoptysis, cough, or sputum production. GI: See HPI for pertinent findings. : Negative for hematuria, urgency, frequency, polyuria, or dysuria. GYNc: Cervical cancer. Denies possibility of . Negative vaginal discharge. MUSCULOSKELETAL: Fibromyalgia. Negative for muscle aches, swelling, arthritis, and arthralgias. NEUROLOGIC: Negative for stroke or TIA. ENDOCRINE: Diabetes. Negative for thyroid problems. SKIN: Negative for rash or itching. PSYCHIATRIC: Anxiety. Depression. All systems: negative (See HPI) Past Medical History Past Medical History: Cancer, Chest Pain / Angina, COPD, Diabetes Mellitus, Fibromyalgia, Hyperlipidemia, Pneumonia, Sleep Apnea/CPAP/BIPAP, Thyroid Disorder, Vascular Disorder Additional Past Medical History / Comment(s): Takosubo syndrome 2014, cervical cancer/hysterectomy, IDDM type II, neuropathy bilateral legs on occasion, JOSE without device, cervical DDD, past fractured pelvis, RLS, PVD, hypothyroid, benign colon polyyps-removed. Last Myocardial Infarction Date:: 2014? History of Any Multi-Drug Resistant Organisms: None Reported Past Surgical History: Section, Heart Catheterization, Hysterectomy, Tubal Ligation Additional Past Surgical History / Comment(s): 1 fallopian tube removed d/t ectopic , bilateral cataract removal with lens implants, colonoscopies/ benign polypectomies. Past Anesthesia/Blood Transfusion Reactions: Previous Problems w/ Anesthesia Additional Past Anesthesia/Blood Transfusion Reaction / Comm: States felt pain with X1. Smoking Status: Current every day smoker - Past Family History Father Family Medical History: Coronary Artery Disease (CAD), Myocardial Infarction (NH ) Additional Family Medical History / Comment(s): Father at the age of 52 yrs from a NH. Sister(s) Family Medical History: COPD Mother Family Medical History: Seizure Disorder Additional Family Medical History / Comment(s): BRAIN ANEURYSM. Mother is 83 yrs old. Medications and Allergies Home Medications Medication Instructions Recorded Confirmed Type Beclomethasone Dipropionate [Qvar 2 puff INHALATION RT-BID 05/16/15 02/02/17 History 80 mcg/puff] Furosemide [Lasix] 20 mg PO DAILY 05/16/15 02/02/17 History HYDROcodone/APAP 10-325MG [[place] 1 tab PO Q4-6H PRN 05/16/15 02/02/17 History 10-325] Ipratropium Nebulized [Atrovent 0.5 mg INHALATION RT-Q6H 05/16/15 02/02/17 History Nebulized] clonazePAM [KlonoPIN] 0.5 - 1 mg PO DAILY PRN 05/16/15 02/02/17 History metFORMIN HCL [metFORMIN HCL ER] 750 mg PO BID 05/16/15 02/02/17 History rOPINIRole HCL [Requip] 2 mg PO HS 05/16/15 02/02/17 History Levothyroxine Sodium [Synthroid] 125 mcg PO DAILY 05/17/16 02/02/17 History Cyclobenzaprine HCl 10 mg PO HS 10/28/16 02/02/17 History [Cyclobenzaprine HCl] Diazepam [Valium] 5 mg PO HS 10/28/16 02/02/17 History Gabapentin [Neurontin] 100 mg PO TID 10/28/16 02/02/17 History Albuterol Sulfate [Proair Hfa] 2 puff INHALATION RT-Q4H PRN 02/02/17 02/02/17 History Aspirin EC [Ecotrin Low Dose] 81 mg PO DAILY 02/02/17 02/02/17 History Bisacodyl 10 mg PO DAILY PRN 02/02/17 02/02/17 History Ergocalciferol [Vitamin D2] 50,000 unit PO Q7D 02/02/17 02/02/17 History Fluticasone Nasal [place] [Flonase 1 spr EA NOSTRIL BID 02/02/17 02/02/17 History Nasal [place]] Glimepiride [Amaryl] 4 mg PO AC-BID 02/02/17 02/02/17 History Insulin Glargine [Lantus] 20 unit SQ HS 02/02/17 02/02/17 History Potassium Chloride ER [K-Dur 10] 10 meq PO W/BRKFST 02/02/17 02/02/17 History Pravastatin Sodium [Pravachol] 20 mg PO DAILY 02/02/17 02/02/17 History Allergies Allergy/AdvReac Type Severity Reaction Status Date / Time No Known Allergies Allergy Verified 02/02/17 07:06 Physical Exam Vitals: Vital Signs Temp Pulse Pulse Resp BP BP Pulse Ox 02/03/17 04:00 98.9 F 101 H 18 120/58 94 L 02/03/17 00:00 98.7 F 98 18 117/61 93 L 02/02/17 20:53 96 02/02/17 20:35 98 02/02/17 19:52 99.1 F 95 18 105/57 94 L 02/02/17 16:21 88 02/02/17 16:12 88 02/02/17 15:41 97.5 F L 94 103/55 94 L 02/02/17 11:38 98.3 F 106 H 16 113/59 95 02/02/17 11:03 96.9 F L 108 H 16 109/59 92 L 02/02/17 10:07 106 H 18 100/59 94 L Intake and Output 02/02/17 02/03/17 02/03/17 22:59 06:59 14:59 Intake Total 1389.747 Balance 1389.747 Intake: IV 1000 D5-0.45% NaCl with KCl 1000 20Meq/l 1,000 ml @ 150 mls/hr IV .[id number] [facility] Rx# :[id number] Intake, IV Titration 189.747 Amount Insulin Regular 100 unit 89.747 In Sodium Chloride 0.9% 100 ml @ 0.1 UNITS/KG/HR 7.1 mls/hr IV .[id number] [facility] Rx#:[id number] metroNIDAZOLE-NS PMX 500 100 mg In Saline 1 100ml.bag @ 100 mls/hr IVPB Q8HR [facility] Rx#:[id number] Oral 200 Other: # Voids 1 1 # Bowel Movements 1 Weight 72.4 kg General appearance: The patient is alert, oriented, in no acute distress. HET: Head is normocephalic and atraumatic. Pupils are equal and reactive. Oropharynx is clear without lesions. Neck: Supple without lymphadenopathy. Trachea midline. Heart: S1 S2. Regular rate and rhythm. Lungs: No crackles or wheezes are heard. Abdomen: Soft, right-sided tenderness with bowel sounds. No peritoneal signs. No palpable organomegaly or masses. Extremities: Normal skin color and turgor. No cyanosis, rash, ulceration, clubbing, or edema. Radial and pedal pulses are 2/4 bilaterally. Neurological: No focal deficits. Strength and sensation are grossly intact. Results CBC & Chem 7: 02/03/17 06:18 02/03/17 06:18 Labs: Abnormal Lab Results - Last 24 Hours (Table) 02/02/17 02/02/17 02/02/17 Range/Units 04:50 08:19 08:36 RDW (11.5-15.5) % Neutrophils # (Manual) 11.40 H (1.3-7.7) k/uL Lymphocytes # (1.0-4.8) k/uL Lymphocytes # (Manual) 0.95 L (1.0-4.8) k/uL Monocytes # (Manual) 1.09 H (0-1.0) k/uL Metamyelocytes # (Man) 0.27 H (0) k/uL Sodium 134 L (137-145) mmol/L Potassium 3.3 L (3.5-5.1) mmol/L Carbon Dioxide 11 L (22-30) mmol/L BUN 27 H (7-17) mg/dL Creatinine 1.08 H (0.52-1.04) mg/dL Glucose 368 H (74-99) mg/dL POC Glucose (mg/dL) 442 H (75-99) mg/dL Phosphorus (2.5-4.5) mg/dL Magnesium (1.6-2.3) mg/dL AST (14-36) U/L Total Protein (6.3-8.2) g/dL Albumin (3.5-5.0) g/dL 02/02/17 02/02/17 02/02/17 Range/Units 09:32 10:37 11:35 RDW (11.5-15.5) % Neutrophils # (Manual) (1.3-7.7) k/uL Lymphocytes # (1.0-4.8) k/uL Lymphocytes # (Manual) (1.0-4.8) k/uL Monocytes # (Manual) (0-1.0) k/uL Metamyelocytes # (Man) (0) k/uL Sodium (137-145) mmol/L Potassium (3.5-5.1) mmol/L Carbon Dioxide (22-30) mmol/L BUN (7-17) mg/dL Creatinine (0.52-1.04) mg/dL Glucose (74-99) mg/dL POC Glucose (mg/dL) 333 H 313 H 250 H (75-99) mg/dL Phosphorus (2.5-4.5) mg/dL Magnesium (1.6-2.3) mg/dL AST (14-36) U/L Total Protein (6.3-8.2) g/dL Albumin (3.5-5.0) g/dL 02/02/17 02/02/17 02/02/17 Range/Units 12:35 12:47 14:02 RDW (11.5-15.5) % Neutrophils # (Manual) (1.3-7.7) k/uL Lymphocytes # (1.0-4.8) k/uL Lymphocytes # (Manual) (1.0-4.8) k/uL Monocytes # (Manual) (0-1.0) k/uL Metamyelocytes # (Man) (0) k/uL Sodium 132 L (137-145) mmol/L Potassium 3.3 L (3.5-5.1) mmol/L Carbon Dioxide 19 L (22-30) mmol/L BUN 26 H (7-17) mg/dL Creatinine (0.52-1.04) mg/dL Glucose 227 H (74-99) mg/dL POC Glucose (mg/dL) 232 H 281 H (75-99) mg/dL Phosphorus 2.2 L (2.5-4.5) mg/dL Magnesium (1.6-2.3) mg/dL AST (14-36) U/L Total Protein (6.3-8.2) g/dL Albumin (3.5-5.0) g/dL 02/02/17 02/02/17 02/02/17 Range/Units 15:34 16:22 17:26 RDW (11.5-15.5) % Neutrophils # (Manual) (1.3-7.7) k/uL Lymphocytes # (1.0-4.8) k/uL Lymphocytes # (Manual) (1.0-4.8) k/uL Monocytes # (Manual) (0-1.0) k/uL Metamyelocytes # (Man) (0) k/uL Sodium (137-145) mmol/L Potassium (3.5-5.1) mmol/L Carbon Dioxide (22-30) mmol/L BUN (7-17) mg/dL Creatinine (0.52-1.04) mg/dL Glucose (74-99) mg/dL POC Glucose (mg/dL) 307 H 320 H 285 H (75-99) mg/dL Phosphorus (2.5-4.5) mg/dL Magnesium (1.6-2.3) mg/dL AST (14-36) U/L Total Protein (6.3-8.2) g/dL Albumin (3.5-5.0) g/dL 02/02/17 02/02/17 02/02/17 Range/Units 18:25 19:31 20:05 RDW (11.5-15.5) % Neutrophils # (Manual) (1.3-7.7) k/uL Lymphocytes # (1.0-4.8) k/uL Lymphocytes # (Manual) (1.0-4.8) k/uL Monocytes # (Manual) (0-1.0) k/uL Metamyelocytes # (Man) (0) k/uL Sodium 130 L (137-145) mmol/L Potassium 3.4 L (3.5-5.1) mmol/L Carbon Dioxide 18 L (22-30) mmol/L BUN 23 H (7-17) mg/dL Creatinine (0.52-1.04) mg/dL Glucose 199 H (74-99) mg/dL POC Glucose (mg/dL) 295 H 237 H (75-99) mg/dL Phosphorus 1.5 L (2.5-4.5) mg/dL Magnesium (1.6-2.3) mg/dL AST (14-36) U/L Total Protein (6.3-8.2) g/dL Albumin (3.5-5.0) g/dL 02/02/17 02/02/17 02/02/17 Range/Units 20:33 21:32 22:30 RDW (11.5-15.5) % Neutrophils # (Manual) (1.3-7.7) k/uL Lymphocytes # (1.0-4.8) k/uL Lymphocytes # (Manual) (1.0-4.8) k/uL Monocytes # (Manual) (0-1.0) k/uL Metamyelocytes # (Man) (0) k/uL Sodium (137-145) mmol/L Potassium (3.5-5.1) mmol/L Carbon Dioxide (22-30) mmol/L BUN (7-17) mg/dL Creatinine (0.52-1.04) mg/dL Glucose (74-99) mg/dL POC Glucose (mg/dL) 447 H 194 H 107 H (75-99) mg/dL Phosphorus (2.5-4.5) mg/dL Magnesium (1.6-2.3) mg/dL AST (14-36) U/L Total Protein (6.3-8.2) g/dL Albumin (3.5-5.0) g/dL 02/03/17 02/03/17 02/03/17 Range/Units 05:50 06:18 06:18 RDW 15.6 H (11.5-15.5) % Neutrophils # (Manual) (1.3-7.7) k/uL Lymphocytes # 0.4 L (1.0-4.8) k/uL Lymphocytes # (Manual) (1.0-4.8) k/uL Monocytes # (Manual) (0-1.0) k/uL Metamyelocytes # (Man) (0) k/uL Sodium 129 L (137-145) mmol/L Potassium (3.5-5.1) mmol/L Carbon Dioxide 17 L (22-30) mmol/L BUN 18 H (7-17) mg/dL Creatinine (0.52-1.04) mg/dL Glucose 324 H (74-99) mg/dL POC Glucose (mg/dL) 353 H (75-99) mg/dL Phosphorus (2.5-4.5) mg/dL Magnesium 1.3 L (1.6-2.3) mg/dL AST 13 L (14-36) U/L Total Protein 4.7 L (6.3-8.2) g/dL Albumin 2.5 L (3.5-5.0) g/dL CT scan - abdomen: report reviewed (Dr. Hammer) Assessment and Plan (1) Colitis Narrative/Plan: Self-limiting infectious possible inflammatory Status: Acute Plan: 1. Stool studies. 2. Broad spectrum IV antibiotics. 3. Liquid diet. 4. Will follow with you. Thank you for this kind referral and the opportunity to participate in the care of your patient. This consultation was discussed with Dr. Hammer. The impression and plan of care have been directed as dictated.
[2017-02-03] MEDS: metroNIDAZOLE-NS PMX 500 MG in SALINE 1 100ML.BAG IVPB SCH ×3 (11:18→23:18)
[2017-02-03 11:38] LABS: Glucose,Whole Blood 368 mg/dL (75-99)
[2017-02-03 11:53] LABS: Hemoglobin A1C 14.2 % (4.2-6.1)
--- NOTE | 2017-02-03 12:06 | XR ---
EXAMINATION TYPE: XR abdomen 2V DATE OF EXAM: 02/03/2017 COMPARISON: 05/24/2015 HISTORY: Pain TECHNIQUE: One view abdominal series FINDINGS: The osseous structures are intact. The bowel gas pattern is nonspecific. Prominent bowel loops in th e upper abdomen are noted. Extensive retained fecal debris. Chronic deformity of the pelvis noted. Ar thropathy of the hips. IMPRESSION: 1. Persistent dilated bowel loops in the upper abdomen which could been the basis of an ileus or part ial obstruction. Significant retained fecal debris also noted. Correlate clinically.
[2017-02-03] MEDS ORDERED: BISACODYL 10 MG SUPP RECTAL STA (13:26)
--- NOTE | 2017-02-03 14:03 | P.PN ---
Subjective This is a 66-year-old female in of Dr. Eugene with a previous medical history significant for a mild coronary artery disease involving the LAD 20-30% , LCx 20-30%, and ostial lesion of the diagonal branch of 40%, diabetes mellitus 2, chronic tobacco use and dependence with a chronic obstructive pulmonary disease, patient was brought into the emergency department at [facility] after she had an episode of the abdominal pain left sided associated with generalized weakness and patient was going to the bathroom yesterday and she had a syncopal episode, she had checked her blood glucose level was high patient ended up coming to the ER at [facility] and she was found to have a diabetic ketoacidosis with a bicarb level of 8 her blood glucose levels were greater than 600 she ended up going for a computed tomography scan of the abdomen that did show significant colitis of the left lower quadrant as well as significant induration of the stomach at that time. Patient was started on IV antibiotic in the form of Levaquin 500 mg IV piggyback every 24 hours as well as Flagyl 500 mg IV piggyback every 8 hours, she was placed on insulin drip, she was admitted to the hospital for further evaluation and general surgery consultation was obtained as well as GI consultation. Her lactic acid was 1.5, she was placed on IV fluid resuscitation as well and the patient will have repeated lactic acid in the next 6 hours. 02/03: Echocardiogram revealed tachycardia greater than 100 bpm, EF 65-70%, mild aortic sclerosis, trace mitral regurgitation, trace tricuspid regurgitation, no pulmonary hypertension. Patient's blood sugar at 2300 was 96 but now she is back to 324. She was given Lantus 21 units last night and is currently on Humalog 7 units before each meal and scale. Lantus will be increased to 28 units and Humalog to 8 units with breakfast and lunch and 10 units at supper. Patient's abdomen is quite tender today for which x-rays ordered showing ileus. Dulcolax suppository ordered. Objective - Vital Signs Vital signs: Vital Signs Temp 97.4 F L 02/03/17 08:00 Pulse 92 02/03/17 08:45 Resp 16 02/03/17 08:00 BP 102/60 02/03/17 08:00 Pulse Ox 95 02/03/17 08:00 Intake & Output 08/02/03/17 02/03/17 18:59 06:59 18:59 Intake Total 1893.775 49.695 Balance 1893.775 49.695 Weight 70.307 kg 72.4 kg Intake: IV 1000 D5-0.45% NaCl with KCl 1000 20Meq/l 1,000 ml @ 150 mls/hr IV .Q6H40M [facility] Rx# :[id number] Intake, IV Titration 193.775 49.695 Amount Insulin Regular 100 unit 93.775 49.695 In Sodium Chloride 0.9% 100 ml @ 0.1 UNITS/KG/HR 7.1 mls/hr IV .[id number] [facility] Rx#:[id number] metroNIDAZOLE-NS PMX 500 100 mg In Saline 1 100ml.bag @ 100 mls/hr IVPB Q8HR [facility] Rx#:[id number] Oral 700 Other: # Voids 1 1 # Bowel Movements 1 - Exam General appearance: mild distress - EENT Eyes: anicteric sclerae, EOMI, PERRLA, no ptosis, no scleral icterus, normal appearance ENT: hearing grossly normal, NA/AT, normal oropharynx, no thrush Ears: bilateral: normal - Neck Neck: no lymphadenopathy, normal ROM, no rigidity, no stridor, no thyromegaly Carotids: bilateral: upstroke normal Thyroid: bilateral: normal size - Respiratory Respiratory: bilateral: diminished, negative: dullness, rales, rhonchi, wheezing , prolonged expiration, prolonged inspiration - Cardiovascular Rhythm: regular Heart sounds: normal: S1, S2 Abnormal Heart Sounds: systolic murmur, no S3 Gallop, no S4 Gallop, no click - Gastrointestinal General gastrointestinal: normal bowel sounds, soft, tenderness, no umbilical hernia, no ventral hernia Localized gastrointestinal: tender: LLQ - Integumentary Integumentary: normal, normal turgor - Neurologic Neurologic: CNII-XII intact - Musculoskeletal Musculoskeletal: generalized weakness, strength equal bilaterally - Psychiatric Psychiatric: A&O x's 3, appropriate affect, intact judgment & insight - Labs CBC & Chem 7: 02/03/17 06:18 02/03/17 06:18 Labs: Abnormal Lab Results - Last 24 Hours (Table) 02/02/17 02/02/17 02/02/17 Range/Units 08:36 09:32 10:37 RDW (11.5-15.5) % Lymphocytes # (1.0-4.8) k/uL Sodium 134 L (137-145) mmol/L Potassium 3.3 L (3.5-5.1) mmol/L Carbon Dioxide 11 L (22-30) mmol/L BUN 27 H (7-17) mg/dL Creatinine 1.08 H (0.52-1.04) mg/dL Glucose 368 H (74-99) mg/dL POC Glucose (mg/dL) 333 H 313 H (75-99) mg/dL Phosphorus (2.5-4.5) mg/dL Magnesium (1.6-2.3) mg/dL AST (14-36) U/L Total Protein (6.3-8.2) g/dL Albumin (3.5-5.0) g/dL 02/02/17 02/02/17 02/02/17 Range/Units 11:35 12:35 12:47 RDW (11.5-15.5) % Lymphocytes # (1.0-4.8) k/uL Sodium 132 L (137-145) mmol/L Potassium 3.3 L (3.5-5.1) mmol/L Carbon Dioxide 19 L (22-30) mmol/L BUN 26 H (7-17) mg/dL Creatinine (0.52-1.04) mg/dL Glucose 227 H (74-99) mg/dL POC Glucose (mg/dL) 250 H 232 H (75-99) mg/dL Phosphorus 2.2 L (2.5-4.5) mg/dL Magnesium (1.6-2.3) mg/dL AST (14-36) U/L Total Protein (6.3-8.2) g/dL Albumin (3.5-5.0) g/dL 02/02/17 02/02/17 02/02/17 Range/Units 14:02 15:34 16:22 RDW (11.5-15.5) % Lymphocytes # (1.0-4.8) k/uL Sodium (137-145) mmol/L Potassium (3.5-5.1) mmol/L Carbon Dioxide (22-30) mmol/L BUN (7-17) mg/dL Creatinine (0.52-1.04) mg/dL Glucose (74-99) mg/dL POC Glucose (mg/dL) 281 H 307 H 320 H (75-99) mg/dL Phosphorus (2.5-4.5) mg/dL Magnesium (1.6-2.3) mg/dL AST (14-36) U/L Total Protein (6.3-8.2) g/dL Albumin (3.5-5.0) g/dL 02/02/17 02/02/17 02/02/17 Range/Units 17:26 18:25 19:31 RDW (11.5-15.5) % Lymphocytes # (1.0-4.8) k/uL Sodium (137-145) mmol/L Potassium (3.5-5.1) mmol/L Carbon Dioxide (22-30) mmol/L BUN (7-17) mg/dL Creatinine (0.52-1.04) mg/dL Glucose (74-99) mg/dL POC Glucose (mg/dL) 285 H 295 H 237 H (75-99) mg/dL Phosphorus (2.5-4.5) mg/dL Magnesium (1.6-2.3) mg/dL AST (14-36) U/L Total Protein (6.3-8.2) g/dL Albumin (3.5-5.0) g/dL 02/02/17 02/02/17 02/02/17 Range/Units 20:05 20:33 21:32 RDW (11.5-15.5) % Lymphocytes # (1.0-4.8) k/uL Sodium 130 L (137-145) mmol/L Potassium 3.4 L (3.5-5.1) mmol/L Carbon Dioxide 18 L (22-30) mmol/L BUN 23 H (7-17) mg/dL Creatinine (0.52-1.04) mg/dL Glucose 199 H (74-99) mg/dL POC Glucose (mg/dL) 447 H 194 H (75-99) mg/dL Phosphorus 1.5 L (2.5-4.5) mg/dL Magnesium (1.6-2.3) mg/dL AST (14-36) U/L Total Protein (6.3-8.2) g/dL Albumin (3.5-5.0) g/dL 02/02/17 02/03/17 02/03/17 Range/Units 22:30 05:50 06:18 RDW (11.5-15.5) % Lymphocytes # (1.0-4.8) k/uL Sodium 129 L (137-145) mmol/L Potassium (3.5-5.1) mmol/L Carbon Dioxide 17 L (22-30) mmol/L BUN 18 H (7-17) mg/dL Creatinine (0.52-1.04) mg/dL Glucose 324 H (74-99) mg/dL POC Glucose (mg/dL) 107 H 353 H (75-99) mg/dL Phosphorus (2.5-4.5) mg/dL Magnesium 1.3 L (1.6-2.3) mg/dL AST 13 L (14-36) U/L Total Protein 4.7 L (6.3-8.2) g/dL Albumin 2.5 L (3.5-5.0) g/dL 02/03/17 Range/Units 06:18 RDW 15.6 H (11.5-15.5) % Lymphocytes # 0.4 L (1.0-4.8) k/uL Sodium (137-145) mmol/L Potassium (3.5-5.1) mmol/L Carbon Dioxide (22-30) mmol/L BUN (7-17) mg/dL Creatinine (0.52-1.04) mg/dL Glucose (74-99) mg/dL POC Glucose (mg/dL) (75-99) mg/dL Phosphorus (2.5-4.5) mg/dL Magnesium (1.6-2.3) mg/dL AST (14-36) U/L Total Protein (6.3-8.2) g/dL Albumin (3.5-5.0) g/dL Assessment and Plan Plan: 1. Acute colitis possibly infectious Vs Ischemic. patient will be started on Levaquin 500 mg piggyback every 24 hours as well as Flagyl 500 mg piggyback every 8 hours, GI consultation from Dr. Mcfarland patient did have a colonoscopy in October [address] Hammer that was totally normal. It did show small polyp that was benign. Keep the patient on nothing per mouth except for sips of water. 2. Diabetic ketoacidosis. Continue IV fluid resuscitation, insulin drip has been discontinued and patient is on Lantus, scheduled Humalog and Humalog scale. 2. COPD without exacerbation. we will continue the patient on Pulmicort 1 mg nebulization twice every day, continue DuoNeb 3 mg nebulization 4 times every day. 3. CAD post left heart catheterization. Continue aspirin 81 mg once every day and pravastatin 20 mg at bedtime. 4. Diabetes mellitus type 2 uncontrolled . Currently on insulin drip, we will continue insulin drip for the next 24 hours and we'll transition to her Lantus and Humalog in the next week 4 hours. 5. Hypothyroidism. We will continue levothyroxin 125 g orally once every day. 6. RLS . Continue patient on Requip 2 mg orally bedtime along with Klonopin 0.5 mg at bedtime. 7. Degenerative disc disease of the cervical spine. Continue Flexeril 10 mg orally 3 times every day along with the gabapentin 100 mg orally 2 times every day [place] continue [place] as needed for pain. 8. Hyperlipidemia. Continue pravastatin 20 mg at bedtime. 9. Vitamin D deficiency. Hold vitamin D supplement for now. 10. DVT prophylaxis. Continue with Lovenox 40 mg subcutaneously every 24 hours. Bilateral knee-high GOGO hose. 11. GI prophylaxis. Continue Protonix 40 mg orally once every day. 12. Estimated length of stay 2 days. 13. Full code. Discharge plan: To be determined. PT and OT added. Impression and plan of care have been directed as dictated by the signing physician. Geeta Monroe nurse practitioner acting as scribe for signing physician.
--- NOTE | 2017-02-03 15:06 | P.PN ---
<Rosaura Campbell - Last Filed: 02/03/17 14:48> Subjective 66-year-old female being seen in follow-up surgical visit for workup for right side abdominal pain. Patient states that she's had intermittent episodes of right lower quadrant pain for at least a year. Patient currently is resting comfortably in bed. Patient states that she came into the emergency room because her blood sugars were elevated. Patient was treated in the emergency room for DKA blood sugar was greater than 600. Patient did have a CAT scan of the abdomen in the emergency room which showed colitis involving the left lower quadrant. Patient has been on IV antibiotics Levaquin and Flagyl. Additionally patient is on an insulin drip being followed by medicine service additionally patients being followed by infectious disease. Note the patient had a colonoscopy in October 30 which reportedly was unremarkable patient did have an abdominal x-ray done at noon today reviewing the computerized report persistent dilated bowel loops in the upper abdomen which could be the basis of an ileus or partial obstruction retained fecal debris noted Objective - Vital Signs Vital signs: Vital Signs Temp 97.9 F 02/03/17 11:26 Pulse 92 02/03/17 11:26 Resp 16 02/03/17 11:26 BP 107/59 02/03/17 11:26 Pulse Ox 91 L 02/03/17 11:26 Intake & Output 02/02/17 02/03/17 02/03/17 18:59 06:59 18:59 Intake Total 1893.775 49.695 130 Balance 1893.775 49.695 130 Weight 70.307 kg 72.4 kg Intake: IV 1000 10 D5-0.45% NaCl with KCl 1000 20Meq/l 1,000 ml @ 150 mls/hr IV .Q6H40M [facility] Rx# :[id number] Invasive Line 1 10 Intake, IV Titration 193.775 49.695 Amount Insulin Regular 100 unit 93.775 49.695 In Sodium Chloride 0.9% 100 ml @ 0.1 UNITS/KG/HR 7.1 mls/hr IV .[id number] [facility] Rx#:[id number] metroNIDAZOLE-NS PMX 500 100 mg In Saline 1 100ml.bag @ 100 mls/hr IVPB Q8HR [facility] Rx#:[id number] Oral 700 120 Other: # Voids 1 1 1 # Bowel Movements 1 - Exam Physical exam Pleasant 66-year-old female resting in bed states that the pain in the right lower quadrant feels better anxious to have diet advanced Lungs essentially clear with adequate air movement Heart S1-S2 audible regular Abdomen soft not able to elicit any facial grimacing with palpitation to the abdominal wall bowel sounds present reports no nausea vomiting. Nursing reports patient did have a bowel movement this morning no blood noted patient states that she has chronic right lower quadrant abdominal discomfort intermittent for the past year Extremities no edema noted lower extremities - Labs CBC & Chem 7: 02/03/17 06:18 02/03/17 06:18 Labs: Abnormal Lab Results - Last 24 Hours (Table) 02/02/17 02/02/17 02/02/17 Range/Units 15:34 16:22 17:26 RDW (11.5-15.5) % Lymphocytes # (1.0-4.8) k/uL Sodium (137-145) mmol/L Potassium (3.5-5.1) mmol/L Carbon Dioxide (22-30) mmol/L BUN (7-17) mg/dL Glucose (74-99) mg/dL POC Glucose (mg/dL) 307 H 320 H 285 H (75-99) mg/dL Hemoglobin A1c (4.2-6.1) % Phosphorus (2.5-4.5) mg/dL Magnesium (1.6-2.3) mg/dL AST (14-36) U/L Total Protein (6.3-8.2) g/dL Albumin (3.5-5.0) g/dL 02/02/17 02/02/17 02/02/17 Range/Units 18:25 19:31 20:05 RDW (11.5-15.5) % Lymphocytes # (1.0-4.8) k/uL Sodium 130 L (137-145) mmol/L Potassium 3.4 L (3.5-5.1) mmol/L Carbon Dioxide 18 L (22-30) mmol/L BUN 23 H (7-17) mg/dL Glucose 199 H (74-99) mg/dL POC Glucose (mg/dL) 295 H 237 H (75-99) mg/dL Hemoglobin A1c (4.2-6.1) % Phosphorus 1.5 L (2.5-4.5) mg/dL Magnesium (1.6-2.3) mg/dL AST (14-36) U/L Total Protein (6.3-8.2) g/dL Albumin (3.5-5.0) g/dL 02/02/17 02/02/17 02/02/17 Range/Units 20:33 21:32 22:30 RDW (11.5-15.5) % Lymphocytes # (1.0-4.8) k/uL Sodium (137-145) mmol/L Potassium (3.5-5.1) mmol/L Carbon Dioxide (22-30) mmol/L BUN (7-17) mg/dL Glucose (74-99) mg/dL POC Glucose (mg/dL) 447 H 194 H 107 H (75-99) mg/dL Hemoglobin A1c (4.2-6.1) % Phosphorus (2.5-4.5) mg/dL Magnesium (1.6-2.3) mg/dL AST (14-36) U/L Total Protein (6.3-8.2) g/dL Albumin (3.5-5.0) g/dL 02/03/17 02/03/17 02/03/17 Range/Units 05:50 06:18 06:18 RDW (11.5-15.5) % Lymphocytes # (1.0-4.8) k/uL Sodium 129 L (137-145) mmol/L Potassium (3.5-5.1) mmol/L Carbon Dioxide 17 L (22-30) mmol/L BUN 18 H (7-17) mg/dL Glucose 324 H (74-99) mg/dL POC Glucose (mg/dL) 353 H (75-99) mg/dL Hemoglobin A1c 14.2 H (4.2-6.1) % Phosphorus (2.5-4.5) mg/dL Magnesium 1.3 L (1.6-2.3) mg/dL AST 13 L (14-36) U/L Total Protein 4.7 L (6.3-8.2) g/dL Albumin 2.5 L (3.5-5.0) g/dL 02/03/17 02/03/17 Range/Units 06:18 11:27 RDW 15.6 H (11.5-15.5) % Lymphocytes # 0.4 L (1.0-4.8) k/uL Sodium (137-145) mmol/L Potassium (3.5-5.1) mmol/L Carbon Dioxide (22-30) mmol/L BUN (7-17) mg/dL Glucose (74-99) mg/dL POC Glucose (mg/dL) 368 H (75-99) mg/dL Hemoglobin A1c (4.2-6.1) % Phosphorus (2.5-4.5) mg/dL Magnesium (1.6-2.3) mg/dL AST (14-36) U/L Total Protein (6.3-8.2) g/dL Albumin (3.5-5.0) g/dL Assessment and Plan Plan: Impression Present on admission right lower abdominal pain unclear etiology Present on admission DKA blood sugar greater than 600 Chronic tobacco abuse Chronic COPD no evidence of an exacerbation Known coronary artery disease type 2 diabetes uncontrolled CAT scan abdomen pelvis suspect acute colitis possibly infectious or ischemia Colonoscopy in October 2016 per GI service no acute findings Echocardiogram left ventricular systolic function normal EF between 65 and 70% no evidence of pulmonary hypertension Plan Continue with IV fluid as ordered Pain control Medicine addressing DKA Continue with the GI prophylaxis and DVT Continue IV antibiotics Levaquin and Flagyl as ordered Further surgical recommendations pending clinical course Continue clear liquid diet The above impression and plan of care have been discussed and directed by signing physician. Rosaura Campbell nurse practitioner acting as scribe for signing physician. <Pavithra,Ahpreethid W - Last Filed: 02/03/17 17:46> Objective - Vital Signs Vital signs: Vital Signs Temp 97.0 F L 02/03/17 16:00 Pulse 90 02/03/17 16:00 Resp 16 02/03/17 16:00 BP 105/62 02/03/17 16:00 Pulse Ox 93 L 02/03/17 16:00 Intake & Output 02/02/17 02/03/17 02/03/17 18:59 06:59 18:59 Intake Total 1893.775 49.695 130 Balance 1893.775 49.695 130 Weight 70.307 kg 72.4 kg Intake: IV 1000 10 D5-0.45% NaCl with KCl 1000 20Meq/l 1,000 ml @ 150 mls/hr IV .Q6H40M [facility] Rx# :[id number] Invasive Line 1 10 Intake, IV Titration 193.775 49.695 Amount Insulin Regular 100 unit 93.775 49.695 In Sodium Chloride 0.9% 100 ml @ 0.1 UNITS/KG/HR 7.1 mls/hr IV .[id number] [facility] Rx#:[id number] metroNIDAZOLE-NS PMX 500 100 mg In Saline 1 100ml.bag @ 100 mls/hr IVPB Q8HR [facility] Rx#:[id number] Oral 700 120 Other: # Voids 1 1 1 # Bowel Movements 1 - Labs CBC & Chem 7: 02/03/17 06:18 02/03/17 06:18 Labs: Abnormal Lab Results - Last 24 Hours (Table) 02/02/17 02/02/17 02/02/17 Range/Units 18:25 19:31 20:05 RDW (11.5-15.5) % Lymphocytes # (1.0-4.8) k/uL Sodium 130 L (137-145) mmol/L Potassium 3.4 L (3.5-5.1) mmol/L Carbon Dioxide 18 L (22-30) mmol/L BUN 23 H (7-17) mg/dL Glucose 199 H (74-99) mg/dL POC Glucose (mg/dL) 295 H 237 H (75-99) mg/dL Hemoglobin A1c (4.2-6.1) % Phosphorus 1.5 L (2.5-4.5) mg/dL Magnesium (1.6-2.3) mg/dL AST (14-36) U/L Total Protein (6.3-8.2) g/dL Albumin (3.5-5.0) g/dL 02/02/17 02/02/17 02/02/17 Range/Units 20:33 21:32 22:30 RDW (11.5-15.5) % Lymphocytes # (1.0-4.8) k/uL Sodium (137-145) mmol/L Potassium (3.5-5.1) mmol/L Carbon Dioxide (22-30) mmol/L BUN (7-17) mg/dL Glucose (74-99) mg/dL POC Glucose (mg/dL) 447 H 194 H 107 H (75-99) mg/dL Hemoglobin A1c (4.2-6.1) % Phosphorus (2.5-4.5) mg/dL Magnesium (1.6-2.3) mg/dL AST (14-36) U/L Total Protein (6.3-8.2) g/dL Albumin (3.5-5.0) g/dL 02/03/17 02/03/17 02/03/17 Range/Units 05:50 06:18 06:18 RDW (11.5-15.5) % Lymphocytes # (1.0-4.8) k/uL Sodium 129 L (137-145) mmol/L Potassium (3.5-5.1) mmol/L Carbon Dioxide 17 L (22-30) mmol/L BUN 18 H (7-17) mg/dL Glucose 324 H (74-99) mg/dL POC Glucose (mg/dL) 353 H (75-99) mg/dL Hemoglobin A1c 14.2 H (4.2-6.1) % Phosphorus (2.5-4.5) mg/dL Magnesium 1.3 L (1.6-2.3) mg/dL AST 13 L (14-36) U/L Total Protein 4.7 L (6.3-8.2) g/dL Albumin 2.5 L (3.5-5.0) g/dL 02/03/17 02/03/17 02/03/17 Range/Units 06:18 11:27 16:29 RDW 15.6 H (11.5-15.5) % Lymphocytes # 0.4 L (1.0-4.8) k/uL Sodium (137-145) mmol/L Potassium (3.5-5.1) mmol/L Carbon Dioxide (22-30) mmol/L BUN (7-17) mg/dL Glucose (74-99) mg/dL POC Glucose (mg/dL) 368 H 270 H (75-99) mg/dL Hemoglobin A1c (4.2-6.1) % Phosphorus (2.5-4.5) mg/dL Magnesium (1.6-2.3) mg/dL AST (14-36) U/L Total Protein (6.3-8.2) g/dL Albumin (3.5-5.0) g/dL Assessment and Plan (1) Abdominal pain Status: Acute (2) Colitis Status: Acute (3) DKA (diabetic ketoacidoses) Status: Acute (4) Acute colitis Status: Acute (5) Acute coronary syndrome Status: Acute (6) Diabetes Status: Acute Plan: Patient Was seen and examined. Her blood sugars seem to be in better control. Her white count is resolving. She is clinically stable at this time. However her pain has not improved significantly she has some air fluid levels on the abdominal x-ray suspecting small bowel obstruction. I will go ahead and reorder a computed tomography scan of the abdomen and pelvis with oral and IV contrast for tomorrow morning. Further recommendations will be based on what seen on that. At this time she is clinically stable and I am leaning towords observing her unless the computed tomography scan shows something significant.( pavithra)
--- NOTE | 2017-02-03 15:51 | P.GSCN ---
History of Present Illness Consult date: 02/02/17 Reason for Consult: Abdominal pain History of present illness: Alcira is a 66-year-old female who presents with a history of her right-sided abdominal pain with some diarrhea. She also had an episode of lightheaded and dizziness and syncope after which she started having abdominal pain. She was brought to the emergency room where her blood sugars were noted to be significantly elevated and her clinical presentation consistent with diabetic ketoacidosis. She also complaining of diffuse abdominal pain. No true nausea or vomiting at that time. There is a history of diarrhea and passing flatus. The pain itself made worse by moving about and the improved by pain medications. There is no obvious bloody bowel movements that have been reported. Review of Systems - Constitutional Reports anorexia, Reports chills, Reports fever, Reports lethargy - EENT Eyes: denies decreased vision - Cardiovascular Denies chest pain, Denies claudication - Respiratory Denies congestion - Gastrointestinal Reports as per HPI - Musculoskeletal Denies atrophy, Denies fractures - Integumentary Reports as per HPI - Neurological Denies headaches, Denies syncope - Hematologic/Lymphatic Denies easy bleeding, Denies easy bruising Past Medical History Past Medical History: Cancer, Chest Pain / Angina, COPD, Diabetes Mellitus, Fibromyalgia, Hyperlipidemia, Pneumonia, Sleep Apnea/CPAP/BIPAP, Thyroid Disorder, Vascular Disorder Additional Past Medical History / Comment(s): Takosubo syndrome 2014, cervical cancer/hysterectomy, IDDM type II, neuropathy bilateral legs on occasion, JOSE without device, cervical DDD, past fractured pelvis, RLS, PVD, hypothyroid, benign colon polyyps-removed. Last Myocardial Infarction Date:: 2014? History of Any Multi-Drug Resistant Organisms: None Reported Past Surgical History: Section, Heart Catheterization, Hysterectomy, Tubal Ligation Additional Past Surgical History / Comment(s): 1 fallopian tube removed d/t ectopic , bilateral cataract removal with lens implants, colonoscopies/ benign polypectomies. Past Anesthesia/Blood Transfusion Reactions: Previous Problems w/ Anesthesia Additional Past Anesthesia/Blood Transfusion Reaction / Comm: States felt pain with X1. Smoking Status: Current every day smoker - Past Family History Father Family Medical History: Coronary Artery Disease (CAD), Myocardial Infarction (MS ) Additional Family Medical History / Comment(s): Father at the age of 52 yrs from a MS. Sister(s) Family Medical History: COPD Mother Family Medical History: Seizure Disorder Additional Family Medical History / Comment(s): BRAIN ANEURYSM. Mother is 83 yrs old. Medications and Allergies Home Medications Medication Instructions Recorded Confirmed Type Beclomethasone Dipropionate [Qvar 2 puff INHALATION RT-BID 05/16/15 02/02/17 History 80 mcg/puff] Furosemide [Lasix] 20 mg PO DAILY 05/16/15 02/02/17 History HYDROcodone/APAP 10-325MG [[place] 1 tab PO Q4-6H PRN 05/16/15 02/02/17 History 10-325] Ipratropium Nebulized [Atrovent 0.5 mg INHALATION RT-Q6H 05/16/15 02/02/17 History Nebulized] clonazePAM [KlonoPIN] 0.5 - 1 mg PO DAILY PRN 05/16/15 02/02/17 History metFORMIN HCL [metFORMIN HCL ER] 750 mg PO BID 05/16/15 02/02/17 History rOPINIRole HCL [Requip] 2 mg PO HS 05/16/15 02/02/17 History Levothyroxine Sodium [Synthroid] 125 mcg PO DAILY 05/17/16 02/02/17 History Cyclobenzaprine HCl 10 mg PO HS 10/28/16 02/02/17 History [Cyclobenzaprine HCl] Diazepam [Valium] 5 mg PO HS 10/28/16 02/02/17 History Gabapentin [Neurontin] 100 mg PO TID 10/28/16 02/02/17 History Albuterol Sulfate [Proair Hfa] 2 puff INHALATION RT-Q4H PRN 02/02/17 02/02/17 History Aspirin EC [Ecotrin Low Dose] 81 mg PO DAILY 02/02/17 02/02/17 History Bisacodyl 10 mg PO DAILY PRN 02/02/17 02/02/17 History Ergocalciferol [Vitamin D2] 50,000 unit PO Q7D 02/02/17 02/02/17 History Fluticasone Nasal [place] [Flonase 1 spr EA NOSTRIL BID 02/02/17 02/02/17 History Nasal [place]] Glimepiride [Amaryl] 4 mg PO AC-BID 02/02/17 02/02/17 History Insulin Glargine [Lantus] 20 unit SQ HS 02/02/17 02/02/17 History Potassium Chloride ER [K-Dur 10] 10 meq PO W/BRKFST 02/02/17 02/02/17 History Pravastatin Sodium [Pravachol] 20 mg PO DAILY 02/02/17 02/02/17 History Allergies Allergy/AdvReac Type Severity Reaction Status Date / Time No Known Allergies Allergy Verified 02/02/17 07:06 Surgical - Exam Vital Signs Temp Pulse Resp BP Pulse Ox 97.9 F 124 H 22 116/64 97 02/02/17 04:38 02/02/17 04:38 02/02/17 04:38 02/02/17 04:38 02/02/17 04:38 - General moderate distress - Eyes normal ocular movement - ENT normal pinna, normal nares, normal mucosa - Neck no masses, trachea midline - Respiratory normal expansion, normal respiratory effort - Cardiovascular Rhythm: regular - Abdomen Abdomen is diffusely tender mildly distended. His no obvious guarding or rebound. No herniation or organomegaly. - Integumentary no rash, no growths - Neurologic normal coordination, normal sensation - Musculoskeletal normal posture - Psychiatric oriented to time, oriented to person, oriented to place, speech is normal Results - Labs 02/03/17 06:18 02/03/17 06:18 Abnormal Lab Results - Last 24 Hours (Table) 02/02/17 02/02/17 02/02/17 Range/Units 15:34 16:22 17:26 RDW (11.5-15.5) % Lymphocytes # (1.0-4.8) k/uL Sodium (137-145) mmol/L Potassium (3.5-5.1) mmol/L Carbon Dioxide (22-30) mmol/L BUN (7-17) mg/dL Glucose (74-99) mg/dL POC Glucose (mg/dL) 307 H 320 H 285 H (75-99) mg/dL Hemoglobin A1c (4.2-6.1) % Phosphorus (2.5-4.5) mg/dL Magnesium (1.6-2.3) mg/dL AST (14-36) U/L Total Protein (6.3-8.2) g/dL Albumin (3.5-5.0) g/dL 02/02/17 02/02/1702/02/17 Range/Units 18:25 19:31 20:05 RDW (11.5-15.5) % Lymphocytes # (1.0-4.8) k/uL Sodium 130 L (137-145) mmol/L Potassium 3.4 L (3.5-5.1) mmol/L Carbon Dioxide 18 L (22-30) mmol/L BUN 23 H (7-17) mg/dL Glucose 199 H (74-99) mg/dL POC Glucose (mg/dL) 295 H 237 H (75-99) mg/dL Hemoglobin A1c (4.2-6.1) % Phosphorus 1.5 L (2.5-4.5) mg/dL Magnesium (1.6-2.3) mg/dL AST (14-36) U/L Total Protein (6.3-8.2) g/dL Albumin (3.5-5.0) g/dL 02/02/17 02/02/17 02/02/17 Range/Units 20:33 21:32 22:30 RDW (11.5-15.5) % Lymphocytes # (1.0-4.8) k/uL Sodium (137-145) mmol/L Potassium (3.5-5.1) mmol/L Carbon Dioxide (22-30) mmol/L BUN (7-17) mg/dL Glucose (74-99) mg/dL POC Glucose (mg/dL) 447 H 194 H 107 H (75-99) mg/dL Hemoglobin A1c (4.2-6.1) % Phosphorus (2.5-4.5) mg/dL Magnesium (1.6-2.3) mg/dL AST (14-36) U/L Total Protein (6.3-8.2) g/dL Albumin (3.5-5.0) g/dL 02/03/17 02/03/17 02/03/17 Range/Units 05:50 06:18 06:18 RDW (11.5-15.5) % Lymphocytes # (1.0-4.8) k/uL Sodium 129 L (137-145) mmol/L Potassium (3.5-5.1) mmol/L Carbon Dioxide 17 L (22-30) mmol/L BUN 18 H (7-17) mg/dL Glucose 324 H (74-99) mg/dL POC Glucose (mg/dL) 353 H (75-99) mg/dL Hemoglobin A1c 14.2 H (4.2-6.1) % Phosphorus (2.5-4.5) mg/dL Magnesium 1.3 L (1.6-2.3) mg/dL AST 13 L (14-36) U/L Total Protein 4.7 L (6.3-8.2) g/dL Albumin 2.5 L (3.5-5.0) g/dL 02/03/17 02/03/17 Range/Units 06:18 11:27 RDW 15.6 H (11.5-15.5) % Lymphocytes # 0.4 L (1.0-4.8) k/uL Sodium (137-145) mmol/L Potassium (3.5-5.1) mmol/L Carbon Dioxide (22-30) mmol/L BUN (7-17) mg/dL Glucose (74-99) mg/dL POC Glucose (mg/dL) 368 H (75-99) mg/dL Hemoglobin A1c (4.2-6.1) % Phosphorus (2.5-4.5) mg/dL Magnesium (1.6-2.3) mg/dL AST (14-36) U/L Total Protein (6.3-8.2) g/dL Albumin (3.5-5.0) g/dL Diabetes panel 02/02/17 02/03/17 02/03/17 Range/Units 20:05 06:18 06:18 Sodium 130 L 129 L (137-145) mmol/L Potassium 3.4 L 4.2 (3.5-5.1) mmol/L Chloride 103 101 (98-107) mmol/L Carbon Dioxide 18 L 17 L (22-30) mmol/L BUN 23 H 18 H (7-17) mg/dL Creatinine 0.82 0.81 (0.52-1.04) mg/dL Glucose 199 H 324 H (74-99) mg/dL Hemoglobin A1c 14.2 H (4.2-6.1) % Calcium 8.4 8.4 (8.4-10.2) mg/dL AST 13 L (14-36) U/L ALT 17 (9-52) U/L Alkaline Phosphatase 89 (38-126) U/L Total Protein 4.7 L (6.3-8.2) g/dL Albumin 2.5 L (3.5-5.0) g/dL Calcium panel 02/02/17 02/03/17 Range/Units 20:05 06:18 Calcium 8.4 8.4 (8.4-10.2) mg/dL Phosphorus 1.5 L (2.5-4.5) mg/dL Albumin 2.5 L (3.5-5.0) g/dL Pituitary panel 02/02/17 02/03/17 Range/Units 20:05 06:18 Sodium 130 L 129 L (137-145) mmol/L Potassium 3.4 L 4.2 (3.5-5.1) mmol/L Chloride 103 101 (98-107) mmol/L Carbon Dioxide 18 L 17 L (22-30) mmol/L BUN 23 H 18 H (7-17) mg/dL Creatinine 0.82 0.81 (0.52-1.04) mg/dL Glucose 199 H 324 H (74-99) mg/dL Calcium 8.4 8.4 (8.4-10.2) mg/dL Adrenal panel 02/02/17 02/03/17 Range/Units 20:05 06:18 Sodium 130 L 129 L (137-145) mmol/L Potassium 3.4 L 4.2 (3.5-5.1) mmol/L Chloride 103 101 (98-107) mmol/L Carbon Dioxide 18 L 17 L (22-30) mmol/L BUN 23 H 18 H (7-17) mg/dL Creatinine 0.82 0.81 (0.52-1.04) mg/dL Glucose 199 H 324 H (74-99) mg/dL Calcium 8.4 8.4 (8.4-10.2) mg/dL Total Bilirubin 0.8 (0.2-1.3) mg/dL AST 13 L (14-36) U/L ALT 17 (9-52) U/L Alkaline Phosphatase 89 (38-126) U/L Total Protein 4.7 L (6.3-8.2) g/dL Albumin 2.5 L (3.5-5.0) g/dL - Imaging CT scan - abdomen: report reviewed, image reviewed CT scan - pelvis: report reviewed, image reviewed Assessment and Plan (1) Abdominal pain Status: Acute (2) Colitis Status: Acute (3) DKA (diabetic ketoacidoses) Status: Acute (4) Acute colitis Status: Acute (5) Acute coronary syndrome Status: Acute (6) Diabetes Status: Acute Plan: Patient has colitis to be infectious or inflammatory in origin. At this time it is nonsurgical. I believe her primary issues the diabetic ketoacidosis and continued management of such. I will continue to follow the patient closely with you and further recognition she'll be made on her clinical course. Her prognosis remains guarded.
[2017-02-03 16:33] LABS: Glucose,Whole Blood 270 mg/dL (75-99)
[2017-02-03] MEDS ORDERED: RX INFO: IV CONTRAST WAS GIVEN 1 EACH MISC MISCELLANE PRN (17:43)
[2017-02-03] MEDS: LEVOFLOXACIN 500MG-D5W PMX 500 MG in DEXTROSE/WATER 1 100ML.BAG IVPB SCH (17:57)
[2017-02-03 20:47] LABS: Glucose,Whole Blood 210 mg/dL (75-99)
[2017-02-03] MEDS ORDERED: INSULIN GLARGINE 100 UNIT/ML 10 ML VIAL SQ SCH (21:00)
[2017-02-03] MEDS: DIAZEPAM 5 MG TAB PO SCH (21:05)
[2017-02-03] MEDS: CYCLOBENZAPRINE 10 MG TAB PO SCH (21:05)
[2017-02-04] MEDS: HYDROcodone/APAP 10-325MG 1 EACH TAB PO PRN ×5 (02:55→21:54)
[2017-02-04] MEDS: IPRATROPIUM 0.5 MG/2.5 ML NEBU INHALATION SCH ×4 (03:15→19:47)
[2017-02-04 05:56] LABS: Glucose,Whole Blood 204 mg/dL (75-99)
[2017-02-04] MEDS: LEVOTHYROXINE 125 MCG TAB PO SCH (06:29)
[2017-02-04] MEDS: INSULIN LISPRO (humaLOG) 300 UNIT/3 ML VIAL SQ SCH ×7 (06:29→21:54)
[2017-02-04] MEDS: IOHEXOL 350 MG/ML 25 ML BOTTLE (ORAL USE) PO PRN ×2 (06:50→08:24)
[2017-02-04 06:59] LABS: ALT 21 U/L (9-52); AST 13 U/L (14-36); Alkaline Phosphatase 86 U/L (38-126); Anion Gap 8 mmol/L; Blood Urea Nitrogen 11 mg/dL (7-17); Calcium 8.7 mg/dL (8.4-10.2); Carbon Dioxide 21 mmol/L (22-30); Chloride 100 mmol/L (98-107); Glucose 218 mg/dL (74-99); Magnesium 1.8 mg/dL (1.6-2.3); Non-African American GFR(MDRD) >60 (>60 ml/min/1.73 sqM); Potassium 4.1 mmol/L (3.5-5.1); Sodium 129 mmol/L (137-145); Total Bilirubin 0.9 mg/dL (0.2-1.3)
[2017-02-04] MEDS: BUDESONIDE 1 MG/2 ML NEBU INHALATION SCH ×2 (08:41→19:47)
[2017-02-04] MEDS: LEVOFLOXACIN 500MG-D5W PMX 500 MG in DEXTROSE/WATER 1 100ML.BAG IVPB SCH (09:32)
[2017-02-04] MEDS: ENOXAPARIN 40 MG/0.4 ML SYRINGE SQ SCH (09:33)
[2017-02-04] MEDS: PRAVASTATIN SODIUM 20 MG TAB PO SCH (09:34)
[2017-02-04] MEDS: GABAPENTIN 100 MG CAP PO SCH ×3 (09:34→21:54)
[2017-02-04] MEDS: ASPIRIN 81 MG CHEW PO SCH (09:34)
--- NOTE | 2017-02-04 10:22 | CT ---
EXAMINATION TYPE: CT abdomen pelvis w con DATE OF EXAM: 02/04/2017 HISTORY: Ischemic colitis per order. CT DLP: 777.7mGycm Automated Exposure Control for Dose Reduction was Utilized. CONTRAST: CT scan of the abdomen and pelvis is performed with IV Contrast, patient injected with 100 mL of Omni paque 300. COMPARISON: CT study from 2 days ago.. FINDINGS: LUNG BASES: No significant abnormality is appreciated. LIVER/GB: Gallbladder has distended margins. No surrounding inflammatory changes are seen. Visualized liver remains hypodense consistent with diffuse fatty infiltration. PANCREAS: Generalized fat replaced atrophy of pancreas is redemonstrated. SPLEEN: No significant abnormality is seen. ADRENALS: No significant abnormality is seen. KIDNEYS: Bladder is more distended on current study in the pelvis. BOWEL: On current exam oral contrast only reaches proximal ileal loops making evaluation of distal autumn wel suboptimal. There is no suspicious dilatation of stomach or small bowel loops. Perhaps mild dilat ation of gastric antrum is unchanged from prior study. There is redundant sigmoid colon with new mild to moderate irregular wall thickening in the upper abd omen anteriorly just right of midline. There is persistent mild wall thickening of the mid to distal left colon. There is interval improvement in fecal material at this level. More proximal colon is sli ghtly more prominent and fecal filled without abnormal wall thickening. No suspicious wall thickening and small bowel loops is identified. There is new mild wall thickening in the rectum beginning on ax ial images 72 through 81 confirmed on coronal image 78. UTERUS/ADNEXA: Uterus is surgically absent. LYMPH NODES: No greater than 1cm abdominal or pelvic lymph nodes are appreciated. OSSEOUS STRUCTURES: There is mild multilevel spurring in the visualized thoracic spine. There is old fracture deformity in the pelvis at level of pubic symphysis and right inferior pelvic ramus and righ t iliac bone. OTHER: There is mild to moderate calcified plaque in the aorta extending into branch vessels. IMPRESSION: 1. Progression of abnormal wall thickening from descending colon now involving significant portions o f redundant sigmoid colon and rectum. Differential includes infectious, inflammatory, and ischemic et iologies. No free or mesenteric air is identified on current study.
--- NOTE | 2017-02-04 10:25 | P.PN ---
Subjective Principal diagnosis: colitis No diarrhea. Minimal flatus. Still reports lower abdominal pain but improved. No nausea vomiting. Afebrile. IV antibiotics. Repeat CT abdomen reported thickening left colon infectious versus ischemic versus inflammatory. No free air. Objective - Vital Signs Vital signs: Vital Signs Temp 98.0 F 02/04/17 04:00 Pulse 84 02/04/17 08:54 Resp 18 02/04/17 04:00 BP 121/62 02/04/17 04:00 Pulse Ox 92 L 02/04/17 04:00 Intake & Output 02/03/17 02/04/17 02/04/17 18:59 06:59 18:59 Intake Total 630 420 Balance 630 420 Weight 73.3 kg Intake: IV 10 220 .9 120 Invasive Line 1 10 metroNIDAZOLE-NS PMX 500 100 mg In Saline 1 100ml.bag @ 100 mls/hr IVPB Q8HR [facility] Rx#:[id number] Intake, IV Titration 500 Amount Levofloxacin 500Mg-D5w 100 Pmx 500 mg In Dextrose/ Water 1 100ml.bag @ 100 mls/hr IVPB Q24H [facility] Rx#: [id number] Magnesium Sulfate-D5w Pmx 400 1 gm In Dextrose/Water 1 100ml.bag @ 100 mls/hr IVPB Q1H [facility] Rx#: [id number] Oral 120 200 Other: Voiding Method Toilet # Voids 1 1 - Exam General appearance: The patient is alert, oriented, in no acute distress. HET: Head is normocephalic and atraumatic. Pupils are equal and reactive. Oropharynx is clear without lesions. Neck: Supple without lymphadenopathy. Trachea midline. Heart: S1 S2. Regular rate and rhythm. Lungs: No crackles or wheezes are heard. Abdomen: Soft, mild bilateral lower abdominal tenderness greater on right and left, nondistended with bowel sounds. No peritoneal signs. No palpable organomegaly or masses. Extremities: Normal skin color and turgor. No cyanosis, rash, ulceration, clubbing, or edema. Radial and pedal pulses are 2/4 bilaterally. Neurological: No focal deficits. Strength and sensation are grossly intact. - Labs CBC & Chem 7: 02/03/17 06:18 02/04/17 06:05 Labs: Abnormal Lab Results - Last 24 Hours (Table) 02/03/17 02/03/17 02/03/17 Range/Units 06:18 11:27 16:29 Sodium (137-145) mmol/L Carbon Dioxide (22-30) mmol/L Glucose (74-99) mg/dL POC Glucose (mg/dL) 368 H 270 H (75-99) mg/dL Hemoglobin A1c 14.2 H (4.2-6.1) % AST (14-36) U/L Total Protein (6.3-8.2) g/dL Albumin (3.5-5.0) g/dL 02/03/17 02/04/17 02/04/17 Range/Units 20:44 05:54 06:05 Sodium 129 L (137-145) mmol/L Carbon Dioxide 21 L (22-30) mmol/L Glucose 218 H (74-99) mg/dL POC Glucose (mg/dL) 210 H 204 H (75-99) mg/dL Hemoglobin A1c (4.2-6.1) % AST 13 L (14-36) U/L Total Protein 5.0 L (6.3-8.2) g/dL Albumin 2.7 L (3.5-5.0) g/dL Assessment and Plan (1) Colitis Narrative/Plan: Self-limiting infectious possible inflammatory Status: Acute Plan: 1. Supportive measures. General surgery following. 2. Broad spectrum IV antibiotics. 3. Nothing by mouth. 4. Will follow with you. Assessment and plan a care discussed with Dr. Mcfarland
[2017-02-04] MEDS: metroNIDAZOLE-NS PMX 500 MG in SALINE 1 100ML.BAG IVPB SCH ×2 (10:57→16:16)
[2017-02-04 11:48] LABS: Glucose,Whole Blood 236 mg/dL (75-99)
--- NOTE | 2017-02-04 12:50 | P.PN ---
Subjective This is a 66-year-old female in of Dr. Eugene with a previous medical history significant for a mild coronary artery disease involving the LAD 20-30% , LCx 20-30%, and ostial lesion of the diagonal branch of 40%, diabetes mellitus 2, chronic tobacco use and dependence with a chronic obstructive pulmonary disease, patient was brought into the emergency department at [facility] after she had an episode of the abdominal pain left sided associated with generalized weakness and patient was going to the bathroom yesterday and she had a syncopal episode, she had checked her blood glucose level was high patient ended up coming to the ER at [place] and she was found to have a diabetic ketoacidosis with a bicarb level of 8 her blood glucose levels were greater than 600 she ended up going for a computed tomography scan of the abdomen that did show significant colitis of the left lower quadrant as well as significant induration of the stomach at that time. Patient was started on IV antibiotic in the form of Levaquin 500 mg IV piggyback every 24 hours as well as Flagyl 500 mg IV piggyback every 8 hours, she was placed on insulin drip, she was admitted to the hospital for further evaluation and general surgery consultation was obtained as well as GI consultation. Her lactic acid was 1.5, she was placed on IV fluid resuscitation as well and the patient will have repeated lactic acid in the next 6 hours. 02/03: Echocardiogram revealed tachycardia greater than 100 bpm, EF 65-70%, mild aortic sclerosis, trace mitral regurgitation, trace tricuspid regurgitation, no pulmonary hypertension. Patient's blood sugar at 2300 was 96 but now she is back to 324. She was given Lantus 21 units last night and is currently on Humalog 7 units before each meal and scale. Lantus will be increased to 28 units and Humalog to 8 units with breakfast and lunch and 10 units at supper. Patient's abdomen is quite tender today for which x-rays ordered showing ileus. Dulcolax suppository ordered. 02/04: Patient states that she had a small bowel movement after suppository yesterday. She denies any nausea. Abdomen is softer but continues to be tender. CAT scan of the abdomen and pelvis with contrast showed progression of abdominal wall thickening from descending colon now involving significant portions of redundant sigmoid colon and rectum. Differential includes infectious, inflammatory and ischemic etiologies. No free or mesenteric air identified. She is followed by general surgeon and GI. Blood sugars are improved but remain in the 200s. Objective - Vital Signs Vital signs: Vital Signs Temp 98.0 F 02/04/17 04:00 Pulse 84 02/04/17 08:54 Resp 18 02/04/17 04:00 BP 121/62 02/04/17 04:00 Pulse Ox 92 L 02/04/17 04:00 Intake & Output 02/03/17 02/04/17 02/04/17 18:59 06:59 18:59 Intake Total 630 420 Balance 630 420 Weight 73.3 kg Intake: IV 10 220 .9 120 Invasive Line 1 10 metroNIDAZOLE-NS PMX 500 100 mg In Saline 1 100ml.bag @ 100 mls/hr IVPB Q8HR [facility] Rx#:[id number] Intake, IV Titration 500 Amount Levofloxacin 500Mg-D5w 100 Pmx 500 mg In Dextrose/ Water 1 100ml.bag @ 100 mls/hr IVPB Q24H [facility] Rx#: [id number] Magnesium Sulfate-D5w Pmx 400 1 gm In Dextrose/Water 1 100ml.bag @ 100 mls/hr IVPB Q1H [facility] Rx#: [id number] Oral 120 200 Other: Voiding Method Toilet # Voids 1 1 - Exam General appearance: mild distress - EENT Eyes: anicteric sclerae, EOMI, PERRLA, no ptosis, no scleral icterus, normal appearance ENT: hearing grossly normal, NA/AT, normal oropharynx, no thrush Ears: bilateral: normal - Neck Neck: no lymphadenopathy, normal ROM, no rigidity, no stridor, no thyromegaly Carotids: bilateral: upstroke normal Thyroid: bilateral: normal size - Respiratory Respiratory: bilateral: diminished, negative: dullness, rales, rhonchi, wheezing , prolonged expiration, prolonged inspiration - Cardiovascular Rhythm: regular Heart sounds: normal: S1, S2 Abnormal Heart Sounds: systolic murmur, no S3 Gallop, no S4 Gallop, no click - Gastrointestinal General gastrointestinal: normal bowel sounds, soft, tenderness, no umbilical hernia, no ventral hernia Localized gastrointestinal: tender: LLQ - Integumentary Integumentary: normal, normal turgor - Neurologic Neurologic: CNII-XII intact - Musculoskeletal Musculoskeletal: generalized weakness, strength equal bilaterally - Psychiatric Psychiatric: A&O x's 3, appropriate affect, intact judgment & insight - Labs CBC & Chem 7: 02/03/17 06:18 02/04/17 06:05 Labs: Abnormal Lab Results - Last 24 Hours (Table) 02/03/17 02/03/17 02/03/17 Range/Units 06:18 16:29 20:44 Sodium (137-145) mmol/L Carbon Dioxide (22-30) mmol/L Glucose (74-99) mg/dL POC Glucose (mg/dL) 270 H 210 H (75-99) mg/dL Hemoglobin A1c 14.2 H (4.2-6.1) % AST (14-36) U/L Total Protein (6.3-8.2) g/dL Albumin (3.5-5.0) g/dL 02/04/17 02/04/17 02/04/17 Range/Units 05:54 06:05 11:45 Sodium 129 L (137-145) mmol/L Carbon Dioxide 21 L (22-30) mmol/L Glucose 218 H (74-99) mg/dL POC Glucose (mg/dL) 204 H 236 H (75-99) mg/dL Hemoglobin A1c (4.2-6.1) % AST 13 L (14-36) U/L Total Protein 5.0 L (6.3-8.2) g/dL Albumin 2.7 L (3.5-5.0) g/dL Assessment and Plan Plan: 1. Acute colitis possibly infectious. patient will be started on Levaquin 500 mg piggyback every 24 hours as well as Flagyl 500 mg piggyback every 8 hours, GI consultation from Dr. Mcfarland patient did have a colonoscopy in October [address] Hammer that was totally normal. It did show small polyp that was benign. Keep the patient on nothing per mouth except for sips of water. 2. Diabetic ketoacidosis. Continue IV fluid resuscitation, insulin drip has been discontinued and patient is on Lantus, scheduled Humalog and Humalog scale. 2. COPD without exacerbation. we will continue the patient on Pulmicort 1 mg nebulization twice every day, continue DuoNeb 3 mg nebulization 4 times every day. 3. CAD post left heart catheterization. Continue aspirin 81 mg once every day and pravastatin 20 mg at bedtime. 4. Diabetes mellitus type 2 uncontrolled . Currently on insulin drip, we will continue insulin drip for the next 24 hours and we'll transition to her Lantus and Humalog in the next week 4 hours. 5. Hypothyroidism. We will continue levothyroxin 125 g orally once every day. 6. RLS . Continue patient on Requip 2 mg orally bedtime along with Klonopin 0.5 mg at bedtime. 7. Degenerative disc disease of the cervical spine. Continue Flexeril 10 mg orally 3 times every day along with the gabapentin 100 mg orally 2 times every day [place] continue [place] as needed for pain. 8. Hyperlipidemia. Continue pravastatin 20 mg at bedtime. 9. Vitamin D deficiency. Hold vitamin D supplement for now. 10. DVT prophylaxis. Continue with Lovenox 40 mg subcutaneously every 24 hours. Bilateral knee-high GOGO hose. 11. GI prophylaxis. Continue Protonix 40 mg orally once every day. 12. Estimated length of stay 2 days. 13. Full code. Discharge plan: PT has recommended home with homecare. Impression and plan of care have been directed as dictated by the signing physician. Geeta Monroe nurse practitioner acting as scribe for signing physician.
--- NOTE | 2017-02-04 14:08 | P.PN ---
<AdrianRosaura M - Last Filed: 02/04/17 13:55> Subjective 66-year-old female being seen on rounds this morning there's been no new events. Patient is being followed by surgical service at the request of the attending for abdominal pain. Patient states there is a noted improvement in the abdominal pain. No nausea no vomiting. Repeat CAT scan abdomen and pelvis done today show reported thickening of the left colon infectious versus ischemic or inflammatory there is no free air noted CAT scan of the abdomen pelvis done on February 02 did show abdominal wall thickening from the descending colon involving portions of the rectum and sigmoid. Patient states that she did have a bowel movement this morning. Patient does report having constipation issues at home. Did note the patient is being followed by GI service. Patient currently is on IV antibiotic Levaquin and Flagyl on a bowel stimulant program Objective - Vital Signs Vital signs: Vital Signs Temp 98.0 F 02/04/17 04:00 Pulse 84 02/04/17 08:54 Resp 18 02/04/17 04:00 BP 121/62 02/04/17 04:00 Pulse Ox 92 L 02/04/17 04:00 Intake & Output 02/03/17 02/04/17 02/04/17 18:59 06:59 18:59 Intake Total 630 420 300 Balance 630 420 300 Weight 73.3 kg Intake: IV 10 220 .9 120 Invasive Line 1 10 metroNIDAZOLE-NS PMX 500 100 mg In Saline 1 100ml.bag @ 100 mls/hr IVPB Q8HR [facility] Rx#:[id number] Intake, IV Titration 500 Amount Levofloxacin 500Mg-D5w 100 Pmx 500 mg In Dextrose/ Water 1 100ml.bag @ 100 mls/hr IVPB Q24H [facility] Rx#: [id number] Magnesium Sulfate-D5w Pmx 400 1 gm In Dextrose/Water 1 100ml.bag @ 100 mls/hr IVPB Q1H [facility] Rx#: [id number] Oral 120 200 300 Other: Voiding Method Toilet # Voids 1 1 - Exam Physical exam Pleasant 66-year-old female resting in bed talkative currently reports no nausea vomiting Lungs essentially clear with adequate air movement on room air Heart S1-S2 audible regular denying chest pain Abdomen soft not able to elicit any facial grimacing with palpitation to the abdominal wall bowel sounds present reports no nausea vomiting. reports did have small bowel movement this morning no blood noted patient states that she has chronic right lower quadrant abdominal discomfort intermittent for the past year Extremities no edema noted lower extremities - Labs CBC & Chem 7: 02/03/17 06:18 02/04/17 06:05 Labs: Abnormal Lab Results - Last 24 Hours (Table) 02/03/17 02/03/17 02/04/17 Range/Units 16:29 20:44 05:54 Sodium (137-145) mmol/L Carbon Dioxide (22-30) mmol/L Glucose (74-99) mg/dL POC Glucose (mg/dL) 270 H 210 H 204 H (75-99) mg/dL AST (14-36) U/L Total Protein (6.3-8.2) g/dL Albumin (3.5-5.0) g/dL 02/04/17 02/04/17 Range/Units 06:05 11:45 Sodium 129 L (137-145) mmol/L Carbon Dioxide 21 L (22-30) mmol/L Glucose 218 H (74-99) mg/dL POC Glucose (mg/dL) 236 H (75-99) mg/dL AST 13 L (14-36) U/L Total Protein 5.0 L (6.3-8.2) g/dL Albumin 2.7 L (3.5-5.0) g/dL Assessment and Plan Plan: Impression Present on admission right lower abdominal pain unclear etiology Present on admission DKA blood sugar greater than 600 Chronic tobacco abuse Chronic COPD no evidence of an exacerbation Known coronary artery disease type 2 diabetes uncontrolled CAT scan abdomen pelvis suspect acute colitis possibly infectious or ischemia Colonoscopy in October 2016 per GI service no acute findings Echocardiogram left ventricular systolic function normal EF between 65 and 70% no evidence of pulmonary hypertension Plan Continue with IV fluid as ordered Pain control Medicine addressing DKA Continue with the GI prophylaxis and DVT Continue IV antibiotics Levaquin and Flagyl as ordered Further surgical recommendations pending clinical course The above impression and plan of care have been discussed and directed by signing physician. Rosaura Campbell nurse practitioner acting as scribe for signing physician. <Niki Cook - Last Filed: 02/10/17 16:48> Objective - Vital Signs Vital signs: Vital Signs Temp 97.3 F L 02/10/17 14:39 Pulse 86 02/10/17 16:24 Resp 16 02/10/17 14:39 BP 98/54 02/10/17 14:39 Pulse Ox 96 02/10/17 14:39 Intake & Output 02/09/17 02/10/17 02/10/17 18:59 06:59 18:59 Weight 74.2 kg Other: Voiding Method Toilet # Voids 3 2 3 # Bowel Movements 1 - Labs CBC & Chem 7: 02/10/17 07:53 02/10/17 07:53 Labs: Abnormal Lab Results - Last 24 Hours (Table) 02/09/17 02/09/17 02/09/17 Range/Units 16:55 20:46 21:07 RDW (11.5-15.5) % Sodium (137-145) mmol/L Glucose (74-99) mg/dL POC Glucose (mg/dL) 111 H 53 L 65 L (75-99) mg/dL Total Protein (6.3-8.2) g/dL Albumin (3.5-5.0) g/dL 02/09/17 02/10/17 02/10/17 Range/Units 21:33 07:24 07:53 RDW 16.8 H (11.5-15.5) % Sodium (137-145) mmol/L Glucose (74-99) mg/dL POC Glucose (mg/dL) 109 H 120 H (75-99) mg/dL Total Protein (6.3-8.2) g/dL Albumin (3.5-5.0) g/dL 02/10/17 02/10/17 Range/Units 07:53 12:06 RDW (11.5-15.5) % Sodium 135 L (137-145) mmol/L Glucose 150 H (74-99) mg/dL POC Glucose (mg/dL) 238 H (75-99) mg/dL Total Protein 4.7 L (6.3-8.2) g/dL Albumin 2.6 L (3.5-5.0) g/dL Microbiology - Last 24 Hours (Table) 02/06/17 16:47 Blood Culture - Preliminary Blood No Growth after 72 hours Assessment and Plan (1) Bilateral lower abdominal pain Status: Acute (2) Constipation Status: Acute (3) DKA (diabetic ketoacidoses) Status: Acute (4) Acute colitis Status: Acute
[2017-02-04 16:43] LABS: Glucose,Whole Blood 202 mg/dL (75-99)
[2017-02-04] MEDS ORDERED: IPRATROPIUM-ALBUTEROL 3 ML NEB INHALATION PRN (19:50)
[2017-02-04] MEDS: IPRATROPIUM-ALBUTEROL 3 ML NEB INHALATION SCH (19:56)
[2017-02-04] MEDS: DIAZEPAM 5 MG TAB PO SCH (20:33)
[2017-02-04] MEDS: CYCLOBENZAPRINE 10 MG TAB PO SCH (20:33)
[2017-02-04 20:48] LABS: Glucose,Whole Blood 211 mg/dL (75-99)
[2017-02-04] MEDS: INSULIN GLARGINE 100 UNIT/ML 10 ML VIAL SQ SCH (21:54)
[2017-02-05] MEDS: metroNIDAZOLE-NS PMX 500 MG in SALINE 1 100ML.BAG IVPB SCH ×4 (00:08→23:16)
[2017-02-05] MEDS: HYDROcodone/APAP 10-325MG 1 EACH TAB PO PRN ×4 (04:38→20:29)
[2017-02-05 05:53] LABS: Glucose,Whole Blood 122 mg/dL (75-99)
[2017-02-05] MEDS: INSULIN LISPRO (humaLOG) 300 UNIT/3 ML VIAL SQ SCH ×7 (06:10→21:43)
[2017-02-05] MEDS: LEVOTHYROXINE 125 MCG TAB PO SCH (06:13)
[2017-02-05 06:17] LABS: CH 30.2; CHCM 34.3; HCT 35.1 % (34.0-46.0); HDW 2.85; HGB 11.6 gm/dL (11.4-16.0); MCH 29.2 pg (25.0-35.0); MCV 88.6 fL (80.0-100.0); Mean Platelet Volume 8.7; RBC 3.96 m/uL (3.80-5.40); WBC 6.1 k/uL (3.8-10.6)
[2017-02-05 06:27] LABS: Anion Gap 4 mmol/L; Blood Urea Nitrogen 7 mg/dL (7-17); Calcium 8.6 mg/dL (8.4-10.2); Carbon Dioxide 26 mmol/L (22-30); Chloride 102 mmol/L (98-107); Glucose 115 mg/dL (74-99); Non-African American GFR(MDRD) >60 (>60 ml/min/1.73 sqM); Potassium 3.6 mmol/L (3.5-5.1); Sodium 132 mmol/L (137-145)
[2017-02-05] MEDS: LEVOFLOXACIN 500MG-D5W PMX 500 MG in DEXTROSE/WATER 1 100ML.BAG IVPB SCH (08:23)
[2017-02-05] MEDS: ASPIRIN 81 MG CHEW PO SCH (08:24)
[2017-02-05] MEDS: GABAPENTIN 100 MG CAP PO SCH ×3 (08:24→20:31)
[2017-02-05] MEDS: PRAVASTATIN SODIUM 20 MG TAB PO SCH (08:24)
[2017-02-05] MEDS: ENOXAPARIN 40 MG/0.4 ML SYRINGE SQ SCH (08:24)
[2017-02-05] MEDS: IPRATROPIUM-ALBUTEROL 3 ML NEB INHALATION SCH ×4 (08:40→19:50)
[2017-02-05] MEDS: BUDESONIDE 1 MG/2 ML NEBU INHALATION SCH ×2 (08:40→19:49)
[2017-02-05 11:38] LABS: Glucose,Whole Blood 282 mg/dL (75-99)
--- NOTE | 2017-02-05 12:52 | XR ---
EXAMINATION TYPE: XR abdomen 2V DATE OF EXAM: 02/05/2017 CLINICAL HISTORY: Small bowel obstruction and ileus TECHNIQUE: Supine and upright views of the abdomen are obtained. COMPARISON: CT abdomen and pelvis from yesterday. FINDINGS: Oral contrast recent CT has progressed into colonic loops in the upper and right abdomen. T here is contrast and fecal filled prominent colon at this level. Fecal material is seen in prominent colon distal to this in the left upper abdomen. There is paucity of small bowel gas. No pneumoperiton eum is present. Visualized osseous structures are intact. IMPRESSION: Overall nonspecific bowel gas pattern. Suspect partial distal colonic obstruction due to inflammatory change or colitis at level of sigmoid colon.
--- NOTE | 2017-02-05 13:30 | P.PN ---
Subjective This is a 66-year-old female in of Dr. Eugene with a previous medical history significant for a mild coronary artery disease involving the LAD 20-30% , LCx 20-30%, and ostial lesion of the diagonal branch of 40%, diabetes mellitus 2, chronic tobacco use and dependence with a chronic obstructive pulmonary disease, patient was brought into the emergency department at [facility] after she had an episode of the abdominal pain left sided associated with generalized weakness and patient was going to the bathroom yesterday and she had a syncopal episode, she had checked her blood glucose level was high patient ended up coming to the ER at [place] and she was found to have a diabetic ketoacidosis with a bicarb level of 8 her blood glucose levels were greater than 600 she ended up going for a computed tomography scan of the abdomen that did show significant colitis of the left lower quadrant as well as significant induration of the stomach at that time. Patient was started on IV antibiotic in the form of Levaquin 500 mg IV piggyback every 24 hours as well as Flagyl 500 mg IV piggyback every 8 hours, she was placed on insulin drip, she was admitted to the hospital for further evaluation and general surgery consultation was obtained as well as GI consultation. Her lactic acid was 1.5, she was placed on IV fluid resuscitation as well and the patient will have repeated lactic acid in the next 6 hours. 02/03: Echocardiogram revealed tachycardia greater than 100 bpm, EF 65-70%, mild aortic sclerosis, trace mitral regurgitation, trace tricuspid regurgitation, no pulmonary hypertension. Patient's blood sugar at 2300 was 96 but now she is back to 324. She was given Lantus 21 units last night and is currently on Humalog 7 units before each meal and scale. Lantus will be increased to 28 units and Humalog to 8 units with breakfast and lunch and 10 units at supper. Patient's abdomen is quite tender today for which x-rays ordered showing ileus. Dulcolax suppository ordered. 02/04: Patient states that she had a small bowel movement after suppository yesterday. She denies any nausea. Abdomen is softer but continues to be tender. CAT scan of the abdomen and pelvis with contrast showed progression of abdominal wall thickening from descending colon now involving significant portions of redundant sigmoid colon and rectum. Differential includes infectious, inflammatory and ischemic etiologies. No free or mesenteric air identified. She is followed by general surgeon and GI. Blood sugars are improved but remain in the 200s. 02/05: Patient states she has still not had a bowel movement and continues to have abdominal tenderness. Abdominal x-ray ordered which shows suspected partial distal colonic obstruction due to inflammatory change or colitis at the level of the sigmoid colon. Nursing to call this to general surgeon. Blood sugars are improved his Lantus was increased to 32 units last night. Sodium is at 132. Objective - Vital Signs Vital signs: Vital Signs Temp 97.2 F L 02/05/17 04:00 Pulse 85 02/05/17 04:00 Resp 18 02/05/17 04:00 BP 115/67 02/05/17 04:00 Pulse Ox 96 02/05/17 04:00 Intake & Output 02/04/17 02/05/17 02/05/17 18:59 06:59 18:59 Intake Total 900 100 Balance 900 100 Weight 73.3 kg 73.8 kg Intake: IV 100 metroNIDAZOLE-NS PMX 500 100 mg In Saline 1 100ml.bag @ 100 mls/hr IVPB Q8HR [facility] Rx#:[id number] Oral 900 Other: Voiding Method Toilet # Voids 2 1 - Exam General appearance: mild distress - EENT Eyes: anicteric sclerae, EOMI, PERRLA, no ptosis, no scleral icterus, normal appearance ENT: hearing grossly normal, NA/AT, normal oropharynx, no thrush Ears: bilateral: normal - Neck Neck: no lymphadenopathy, normal ROM, no rigidity, no stridor, no thyromegaly Carotids: bilateral: upstroke normal Thyroid: bilateral: normal size - Respiratory Respiratory: bilateral: diminished, negative: dullness, rales, rhonchi, wheezing , prolonged expiration, prolonged inspiration - Cardiovascular Rhythm: regular Heart sounds: normal: S1, S2 Abnormal Heart Sounds: systolic murmur, no S3 Gallop, no S4 Gallop, no click - Gastrointestinal General gastrointestinal: normal bowel sounds, soft, tenderness, no umbilical hernia, no ventral hernia Localized gastrointestinal: tender: LLQ - Integumentary Integumentary: normal, normal turgor - Neurologic Neurologic: CNII-XII intact - Musculoskeletal Musculoskeletal: generalized weakness, strength equal bilaterally - Psychiatric Psychiatric: A&O x's 3, appropriate affect, intact judgment & insight - Labs CBC & Chem 7: 02/05/17 05:48 02/05/17 05:48 Labs: Abnormal Lab Results - Last 24 Hours (Table) 02/04/17 02/04/17 02/04/17 Range/Units 11:45 16:37 20:47 RDW (11.5-15.5) % Sodium (137-145) mmol/L Glucose (74-99) mg/dL POC Glucose (mg/dL) 236 H 202 H 211 H (75-99) mg/dL 02/05/17 02/05/17 02/05/17 Range/Units 05:48 05:48 05:51 RDW 16.0 H (11.5-15.5) % Sodium 132 L (137-145) mmol/L Glucose 115 H (74-99) mg/dL POC Glucose (mg/dL) 122 H (75-99) mg/dL Assessment and Plan Plan: 1. Acute colitis possibly infectious with suspected partial distal colonic obstruction. patient will be started on Levaquin 500 mg piggyback every 24 hours as well as Flagyl 500 mg piggyback every 8 hours, GI consultation from Dr. Mcfarland patient did have a colonoscopy in October [address] Hammer that was totally normal. It did show small polyp that was benign. Keep the patient on nothing per mouth. 2. Diabetic ketoacidosis. Continue IV fluid resuscitation, insulin drip has been discontinued and patient is on Lantus, scheduled Humalog and Humalog scale. 2. COPD without exacerbation. we will continue the patient on Pulmicort 1 mg nebulization twice every day, continue DuoNeb 3 mg nebulization 4 times every day. 3. CAD post left heart catheterization. Continue aspirin 81 mg once every day and pravastatin 20 mg at bedtime. 4. Diabetes mellitus type 2 uncontrolled . Currently on insulin drip, we will continue insulin drip for the next 24 hours and we'll transition to her Lantus and Humalog in the next week 4 hours. 5. Hypothyroidism. We will continue levothyroxin 125 g orally once every day. 6. RLS . Continue patient on Requip 2 mg orally bedtime along with Klonopin 0.5 mg at bedtime. 7. Degenerative disc disease of the cervical spine. Continue Flexeril 10 mg orally 3 times every day along with the gabapentin 100 mg orally 2 times every day [place] continue [place] as needed for pain. 8. Hyperlipidemia. Continue pravastatin 20 mg at bedtime. 9. Vitamin D deficiency. Hold vitamin D supplement for now. 10. DVT prophylaxis. Continue with Lovenox 40 mg subcutaneously every 24 hours. Bilateral knee-high GOGO hose. 11. GI prophylaxis. Continue Protonix 40 mg orally once every day. 12. Estimated length of stay 2 days. 13. Full code. Discharge plan: PT has recommended home with homecare. Impression and plan of care have been directed as dictated by the signing physician. Geeta Monroe nurse practitioner acting as scribe for signing physician.
[2017-02-05 17:15] LABS: Glucose,Whole Blood 164 mg/dL (75-99)
--- NOTE | 2017-02-05 19:23 | P.PN ---
Subjective Principal diagnosis: Colitis. The patient is a 66-year-old female who was admitted secondary to abdominal pain. She has incidental DKA. She had a CT of the abdomen and pelvis which demonstrated wall thickening of the descending colon. GI has been evaluating the patient. Separately she reports that her abdominal pain was still present. Her pain is no greater or worse. She reports difficulty with abdominal pain especially with walking. She reports movement of the bed also makes her pain worse. She reports difficulty with passage of flatus. No recent vomiting. She reports constipation. Objective - Vital Signs Vital signs: Vital Signs Temp 97.5 F L 02/05/17 08:00 Pulse 88 02/05/17 08:53 Resp 16 02/05/17 08:00 BP 110/63 02/05/17 08:00 Pulse Ox 100 02/05/17 08:00 Intake & Output 02/04/17 02/05/17 02/05/17 18:59 06:59 18:59 Intake Total 900 100 Output Total 400 Balance 900 100 -400 Weight 73.3 kg 73.8 kg Intake: IV 100 metroNIDAZOLE-NS PMX 500 100 mg In Saline 1 100ml.bag @ 100 mls/hr IVPB Q8HR [facility] Rx#:[id number] Oral 900 Output: Urine 400 Other: Voiding Method Toilet # Voids 2 1 # Bowel Movements 0 - Exam GENERAL: Well developed and in no acute distress. Pleasant. HEENT: No sclera icterus. Extraocular movements grossly intact. Moist buccal mucosa. Head is atraumatic, normocephalic. Hears conversational speech. No nasal drainage. NECK: Supple without lymphadenopathy. No JV distention. CHEST: Non-labored respirations and equal bilateral excursions. CARDIOVASCULAR: Regular rate and rhythm. Palpable 2+ radial pulses. ABDOMEN: Soft with focal tenderness along the bilateral lower quadrant. Peritoneal irritation with jarring of the bed including rebound tenderness. MUSCULOSKELETAL: No clubbing, cyanosis or edema. NEUROLOGIC: No focal or lateralizing signs. Cranial nerves II-12. PSYCH: Appropriate affect. Alert and oriented to person, place and time. SKIN: Good skin turgor. Will perfused. - Labs CBC & Chem 7: 02/05/17 05:48 02/05/17 05:48 Labs: Abnormal Lab Results - Last 24 Hours (Table) 02/04/17 02/04/17 02/05/17 Range/Units 16:37 20:47 05:48 RDW 16.0 H (11.5-15.5) % Sodium (137-145) mmol/L Glucose (74-99) mg/dL POC Glucose (mg/dL) 202 H 211 H (75-99) mg/dL 02/05/17 02/05/17 02/05/17 Range/Units 05:48 05:51 11:37 RDW (11.5-15.5) % Sodium 132 L (137-145) mmol/L Glucose 115 H (74-99) mg/dL POC Glucose (mg/dL) 122 H 282 H (75-99) mg/dL - Imaging and Cardiology Abdominal x-ray: report reviewed (Gaseous distention of the colon. No free air. ), image reviewed CT scan - abdomen: report reviewed, image reviewed (CT of the abdomen personally reviewed demonstrating thickening of the descending colon and sigmoid colon. Sigmoid colon also identified of the right lower pelvis with inflammation.) Assessment and Plan (1) Bilateral lower abdominal pain Status: Acute (2) Constipation Status: Acute (3) DKA (diabetic ketoacidoses) Status: Acute (4) Acute colitis Status: Acute Plan: 1. On exam, she has colitis. She reports her abdominal pain has been unchanged since her admission. 2. She also has peritoneal irritation. Potential surgical intervention was described such as possible colostomy creation however per patient request, she has elected for conservative measures. 3. Recommend adjustment of antibiotics to potentially vancomycin. 4. Recommend nothing by mouth status. 5. Alternatively, may benefit from colonoscopy for evaluation of ischemic colitis versus inflammatory colitis. 6. Will follow closely.
[2017-02-05] MEDS: DIAZEPAM 5 MG TAB PO SCH (20:29)
[2017-02-05] MEDS: CYCLOBENZAPRINE 10 MG TAB PO SCH (20:30)
[2017-02-05 20:59] LABS: Glucose,Whole Blood 181 mg/dL (75-99)
[2017-02-05] MEDS: INSULIN GLARGINE 100 UNIT/ML 10 ML VIAL SQ SCH (21:43)
[2017-02-06] MEDS: HYDROcodone/APAP 10-325MG 1 EACH TAB PO PRN ×5 (02:20→20:46)
[2017-02-06 06:16] LABS: Glucose,Whole Blood 208 mg/dL (75-99)
[2017-02-06] MEDS: INSULIN LISPRO (humaLOG) 300 UNIT/3 ML VIAL SQ SCH ×7 (06:22→21:38)
[2017-02-06] MEDS: LEVOTHYROXINE 125 MCG TAB PO SCH (06:26)
[2017-02-06 07:14] LABS: Anion Gap 7 mmol/L; Blood Urea Nitrogen 5 mg/dL (7-17); Calcium 8.4 mg/dL (8.4-10.2); Carbon Dioxide 24 mmol/L (22-30); Chloride 101 mmol/L (98-107); Glucose 200 mg/dL (74-99); Non-African American GFR(MDRD) >60 (>60 ml/min/1.73 sqM); Potassium 3.8 mmol/L (3.5-5.1); Sodium 132 mmol/L (137-145)
[2017-02-06] MEDS: LEVOFLOXACIN 500MG-D5W PMX 500 MG in DEXTROSE/WATER 1 100ML.BAG IVPB SCH (07:31)
[2017-02-06] MEDS: metroNIDAZOLE-NS PMX 500 MG in SALINE 1 100ML.BAG IVPB SCH ×3 (07:31→23:30)
[2017-02-06] MEDS: ASPIRIN 81 MG CHEW PO SCH (07:32)
[2017-02-06] MEDS: GABAPENTIN 100 MG CAP PO SCH ×3 (07:32→20:46)
[2017-02-06] MEDS: PRAVASTATIN SODIUM 20 MG TAB PO SCH (07:32)
[2017-02-06] MEDS: ENOXAPARIN 40 MG/0.4 ML SYRINGE SQ SCH (07:32)
[2017-02-06] MEDS: BUDESONIDE 1 MG/2 ML NEBU INHALATION SCH ×2 (09:05→20:58)
[2017-02-06] MEDS: IPRATROPIUM-ALBUTEROL 3 ML NEB INHALATION SCH ×4 (09:06→20:58)
--- NOTE | 2017-02-06 10:38 | P.PN ---
Subjective This is a 66-year-old female in of Dr. Eugene with a previous medical history significant for a mild coronary artery disease involving the LAD 20-30% , LCx 20-30%, and ostial lesion of the diagonal branch of 40%, diabetes mellitus 2, chronic tobacco use and dependence with a chronic obstructive pulmonary disease, patient was brought into the emergency department at [facility] after she had an episode of the abdominal pain left sided associated with generalized weakness and patient was going to the bathroom yesterday and she had a syncopal episode, she had checked her blood glucose level was high patient ended up coming to the ER at [facility] and she was found to have a diabetic ketoacidosis with a bicarb level of 8 her blood glucose levels were greater than 600 she ended up going for a computed tomography scan of the abdomen that did show significant colitis of the left lower quadrant as well as significant induration of the stomach at that time. Patient was started on IV antibiotic in the form of Levaquin 500 mg IV piggyback every 24 hours as well as Flagyl 500 mg IV piggyback every 8 hours, she was placed on insulin drip, she was admitted to the hospital for further evaluation and general surgery consultation was obtained as well as GI consultation. Her lactic acid was 1.5, she was placed on IV fluid resuscitation as well and the patient will have repeated lactic acid in the next 6 hours. 02/03: Echocardiogram revealed tachycardia greater than 100 bpm, EF 65-70%, mild aortic sclerosis, trace mitral regurgitation, trace tricuspid regurgitation, no pulmonary hypertension. Patient's blood sugar at 2300 was 96 but now she is back to 324. She was given Lantus 21 units last night and is currently on Humalog 7 units before each meal and scale. Lantus will be increased to 28 units and Humalog to 8 units with breakfast and lunch and 10 units at supper. Patient's abdomen is quite tender today for which x-rays ordered showing ileus. Dulcolax suppository ordered. 02/04: Patient states that she had a small bowel movement after suppository yesterday. She denies any nausea. Abdomen is softer but continues to be tender. CAT scan of the abdomen and pelvis with contrast showed progression of abdominal wall thickening from descending colon now involving significant portions of redundant sigmoid colon and rectum. Differential includes infectious, inflammatory and ischemic etiologies. No free or mesenteric air identified. She is followed by general surgeon and GI. Blood sugars are improved but remain in the 200s. 02/05: Patient states she has still not had a bowel movement and continues to have abdominal tenderness. Abdominal x-ray ordered which shows suspected partial distal colonic obstruction due to inflammatory change or colitis at the level of the sigmoid colon. Nursing to call this to general surgeon. Blood sugars are improved his Lantus was increased to 32 units last night. Sodium is at 132. 02/06: Patient was seen by Dr. Cook yesterday and plan is to continue conservative measures. She is currently on Levaquin and Flagyl and nothing by mouth status. Blood sugars are running 164-208. Consult with Dr. Coffey added. Patient states she has not had a bowel movement. She is not passing gas. She occasionally burps. She states her pain is about the same. Objective - Vital Signs Vital signs: Vital Signs Temp 97.3 F L 02/06/17 04:00 Pulse 87 02/06/17 04:00 Resp 16 02/06/17 07:26 BP 115/65 02/06/17 04:00 Pulse Ox 95 02/06/17 04:00 Intake & Output 02/05/17 02/06/17 02/06/17 18:59 06:59 18:59 Intake Total 140 Output Total 400 0 Balance -400 140 0 Weight 74.6 kg Intake: IV 140 .9 40 metroNIDAZOLE-NS PMX 500 100 mg In Saline 1 100ml.bag @ 100 mls/hr IVPB Q8HR [facility] Rx#:[id number] Output: Urine 400 Stool 0 0 Other: Voiding Method Toilet # Voids 2 1 # Bowel Movements 0 - Exam General appearance: mild distress - EENT Eyes: anicteric sclerae, EOMI, PERRLA, no ptosis, no scleral icterus, normal appearance ENT: hearing grossly normal, NA/AT, normal oropharynx, no thrush Ears: bilateral: normal - Neck Neck: no lymphadenopathy, normal ROM, no rigidity, no stridor, no thyromegaly Carotids: bilateral: upstroke normal Thyroid: bilateral: normal size - Respiratory Respiratory: bilateral: diminished, negative: dullness, rales, rhonchi, wheezing , prolonged expiration, prolonged inspiration - Cardiovascular Rhythm: regular Heart sounds: normal: S1, S2 Abnormal Heart Sounds: systolic murmur, no S3 Gallop, no S4 Gallop, no click - Gastrointestinal General gastrointestinal: normal bowel sounds, soft, tenderness, no umbilical hernia, no ventral hernia Localized gastrointestinal: tender: LLQ - Integumentary Integumentary: normal, normal turgor - Neurologic Neurologic: CNII-XII intact - Musculoskeletal Musculoskeletal: generalized weakness, strength equal bilaterally - Psychiatric Psychiatric: A&O x's 3, appropriate affect, intact judgment & insight - Labs CBC & Chem 7: 02/05/17 05:48 02/06/17 06:16 Labs: Abnormal Lab Results - Last 24 Hours (Table) 02/05/17 02/05/17 02/05/17 Range/Units 11:37 16:48 20:58 Sodium (137-145) mmol/L BUN (7-17) mg/dL Glucose (74-99) mg/dL POC Glucose (mg/dL) 282 H 164 H 181 H (75-99) mg/dL 02/06/17 02/06/17 Range/Units 06:14 06:16 Sodium 132 L (137-145) mmol/L BUN 5 L (7-17) mg/dL Glucose 200 H (74-99) mg/dL POC Glucose (mg/dL) 208 H (75-99) mg/dL Assessment and Plan Plan: 1. Acute colitis possibly infectious, possible ischemic colitis with suspected partial distal colonic obstruction. Continue Levaquin 500 mg piggyback every 24 hours as well as Flagyl 500 mg piggyback every 8 hours, GI consultation from Dr. Mcfarland patient did have a colonoscopy in October [address] Hammer that was totally normal. It did show small polyp that was benign. Keep the patient on nothing per mouth. 2. Diabetic ketoacidosis. Continue IV fluid resuscitation, insulin drip has been discontinued and patient is on Lantus, scheduled Humalog and Humalog scale. 2. COPD without exacerbation. we will continue the patient on Pulmicort 1 mg nebulization twice every day, continue DuoNeb 3 mg nebulization 4 times every day. 3. CAD post left heart catheterization. Continue aspirin 81 mg once every day and pravastatin 20 mg at bedtime. 4. Diabetes mellitus type 2 uncontrolled . Currently on insulin drip, we will continue insulin drip for the next 24 hours and we'll transition to her Lantus and Humalog in the next week 4 hours. 5. Hypothyroidism. We will continue levothyroxin 125 g orally once every day. 6. RLS . Continue patient on Requip 2 mg orally bedtime along with Klonopin 0.5 mg at bedtime. 7. Degenerative disc disease of the cervical spine. Continue Flexeril 10 mg orally 3 times every day along with the gabapentin 100 mg orally 2 times every day HI continue [place] as needed for pain. 8. Hyperlipidemia. Continue pravastatin 20 mg at bedtime. 9. Vitamin D deficiency. Hold vitamin D supplement for now. 10. DVT prophylaxis. Continue with Lovenox 40 mg subcutaneously every 24 hours. Bilateral knee-high GOGO hose. 11. GI prophylaxis. Continue Protonix 40 mg orally once every day. 12. Estimated length of stay 2 days. 13. Full code. Discharge plan: PT has recommended home with homecare. Impression and plan of care have been directed as dictated by the signing physician. Geeta Monroe nurse practitioner acting as scribe for signing physician.
--- NOTE | 2017-02-06 11:38 | P.PN ---
Subjective Principal diagnosis: Colitis. The patient is a 66-year-old female who was admitted secondary to abdominal pain. Since starting of Levaquin and Flagyl, she reports no improvement of her bilateral lower abdominal pain right greater than left. I had seen the patient alongside Dr. Turner, blankmaker. We were able to discuss with the patient findings of her computed tomography scan including abdominal x-ray. Patient reports no passage of flatus. Per her recollection, her last bowel movement was 6 days ago. Objective - Vital Signs Vital signs: Vital Signs Temp 97.4 F L 02/06/17 08:00 Pulse 88 02/06/17 09:20 Resp 16 02/06/17 08:00 BP 112/60 02/06/17 08:00 Pulse Ox 95 02/06/17 08:00 Intake & Output 02/05/17 02/06/17 02/06/17 18:59 06:59 18:59 Intake Total 140 Output Total 400 0 Balance -400 140 0 Weight 74.6 kg Intake: IV 140 .9 40 metroNIDAZOLE-NS PMX 500 100 mg In Saline 1 100ml.bag @ 100 mls/hr IVPB Q8HR [facility] Rx#:[id number] Output: Urine 400 Stool 0 0 Other: Voiding Method Toilet # Voids 2 1 1 # Bowel Movements 0 - Exam GENERAL: Well developed and in no acute distress. Pleasant. HEENT: No sclera icterus. Extraocular movements grossly intact. Moist buccal mucosa. Head is atraumatic, normocephalic. Hears conversational speech. No nasal drainage. She is edentulous. NECK: Supple without lymphadenopathy. No JV distention. CHEST: Non-labored respirations and equal bilateral excursions. CARDIOVASCULAR: Regular rate and rhythm. Palpable 2+ radial pulses. ABDOMEN: Soft with focal tenderness along the bilateral lower quadrant, right greater than left. Peritoneal irritation with rebound. MUSCULOSKELETAL: No clubbing, cyanosis or edema. NEUROLOGIC: No focal or lateralizing signs. Cranial nerves II-12. PSYCH: Appropriate affect. Alert and oriented to person, place and time. SKIN: Good skin turgor. Will perfused. - Labs CBC & Chem 7: 02/05/17 05:48 02/06/17 06:16 Labs: Abnormal Lab Results - Last 24 Hours (Table) 02/05/17 02/05/17 02/05/17 Range/Units 11:37 16:48 20:58 Sodium (137-145) mmol/L BUN (7-17) mg/dL Glucose (74-99) mg/dL POC Glucose (mg/dL) 282 H 164 H 181 H (75-99) mg/dL 02/06/17 02/06/17 Range/Units 06:14 06:16 Sodium 132 L (137-145) mmol/L BUN 5 L (7-17) mg/dL Glucose 200 H (74-99) mg/dL POC Glucose (mg/dL) 208 H (75-99) mg/dL - Imaging and Cardiology Abdominal x-ray: image reviewed (Findings consistent with focal colitis.) CT scan - abdomen: image reviewed CT scan - pelvis: image reviewed Assessment and Plan (1) Bilateral lower abdominal pain Status: Acute (2) Constipation Status: Acute (3) DKA (diabetic ketoacidoses) Status: Acute (4) Acute colitis Status: Acute Plan: 1. After discussion with Dr. Mcfarland, we'll hold any further procedure as this is likely infectious versus inflammatory. C. diff colitis cannot be excluded. 2. Recommend change of antibiotics to vancomycin oral to address C. diff colitis which can also cause constipation as a variant. 3. May have liquid diet in the interim. 4. Potential repeat computed tomography scan in 3-5 days if no improvement.
[2017-02-06 11:50] LABS: Glucose,Whole Blood 140 mg/dL (75-99)
--- NOTE | 2017-02-06 14:15 | PN ---
PROGRESS NOTE DATE OF DICTATION: 02/06/17 INTERVAL HISTORY: The patient is a 66 -year-old pleasant white male admitted to the hospital with lower abdominal pain for the last few days duration. At the time of admission to the hospital, she had a CT of the abdomen and pelvis done that showed significant colitis of the of the descending colon. The patient was being treated with empiric antibiotics with Levaquin and Flagyl. She continues to have persistent abdominal pain. She describes the pain mostly right lower quadrant area. She is extremely constipated and did not have any bowel movements in the last 6 days. She denies any rectal bleeding. She reports no nausea, vomiting. No fever, chills or night sweats. PHYSICAL EXAMINATION: She appears comfortable. No apparent distress. VITAL SIGNS: Stable. Blood pressure is 115/65, pulse rate 87, temperature 97. Respiratory rate 18. HEENT examination unremarkable. Conjunctivae pink. Sclerae anicteric. Oral cavity no lesions. Neck no jugular venous distention or lymph node enlargement. Chest was clear to auscultation. HEART: Regular rate and rhythm. ABDOMEN: Soft, there was tenderness in the right lower quadrant as well as some tenderness in the left lower quadrant area. No rebound or rigidity. Bowel sounds positive. No organomegaly. Extremities no pedal edema. Skin: No rashes. Neuro she is alert and oriented times three. No focal deficits. LAB DATA: WBC 6.1, hemoglobin 11.6, platelets are normal. Basic metabolic panel is within normal limits. IMPRESSION: The patient presents to the hospital with acute onset of lower abdominal pain for the last one week duration. CT of abdomen done at the time of admission to the hospital on February 03 did show some wall thickening of the descending colon with surrounding some pericolonic inflammatory changes consistent with infectious versus inflammatory colitis. She had a repeat CT scan performed on 02/04/2017 because of persistent symptoms, which showed progression of abnormal wall thickening of the descending colon extending onto the redundant sigmoid colon ; as well as rectum. She did have abdominal x-rays done yesterday that showed fecal stasis. Her last colonoscopy by Dr. Hammer was performed on August of 2016 which was unremarkable. It appears that most likely we are dealing with an infectious colitis versus inflammatory colitis, e more likely an infectious colitis at the present time. She is on IV Flagyl as well as Levaquin and continues to have persistent symptoms. RECOMMENDATIONS: 1. Discussed with Dr. Cook and the plan is to continue with conservative approach with IV empiric antibiotics. 2. Maintain n.p.o. status. 3. We will not give any laxatives at the present time because of concern of perforation. 4. We will follow her closely during her hospital stay. Thank you for this consultation. KAM / BERNIE: [id number] /
[2017-02-06] MEDS: PIPERACILLIN-TAZOBACTAM 3.375 GM in DEXTROSE/WATER 1 50ML.BAG IVPB SCH (16:52)
[2017-02-06 17:41] LABS: Glucose,Whole Blood 170 mg/dL (75-99)
[2017-02-06] MEDS: DIAZEPAM 5 MG TAB PO SCH (20:46)
[2017-02-06] MEDS: CYCLOBENZAPRINE 10 MG TAB PO SCH (20:46)
[2017-02-06] MEDS: INSULIN GLARGINE 100 UNIT/ML 10 ML VIAL SQ SCH (20:47)
[2017-02-06 20:53] LABS: Glucose,Whole Blood 161 mg/dL (75-99)
[2017-02-07] MEDS: PIPERACILLIN-TAZOBACTAM 3.375 GM in DEXTROSE/WATER 1 50ML.BAG IVPB SCH ×3 (00:29→16:15)
[2017-02-07] MEDS: HYDROcodone/APAP 10-325MG 1 EACH TAB PO PRN ×5 (02:02→20:00)
[2017-02-07 05:41] LABS: Glucose,Whole Blood 182 mg/dL (75-99)
[2017-02-07] MEDS: INSULIN LISPRO (humaLOG) 300 UNIT/3 ML VIAL SQ SCH ×7 (06:13→21:25)
[2017-02-07] MEDS: LEVOTHYROXINE 125 MCG TAB PO SCH (06:13)
[2017-02-07 06:54] LABS: Anisocytosis Slight; CH 30.1; HCT 33.9 % (34.0-46.0); HDW 2.81; HGB 11.1 gm/dL (11.4-16.0); Immature Gran Flag Slight; MCH 29.2 pg (25.0-35.0); MCHC 32.7 g/dL (31.0-37.0); MCV 89.5 fL (80.0-100.0); Mean Platelet Volume 8.1; RBC 3.78 m/uL (3.80-5.40); RDW 16.3 % (11.5-15.5); WBC 3.4 k/uL (3.8-10.6); WBC (Perox) 3.52
[2017-02-07 06:56] LABS: ALT 23 U/L (9-52); AST 16 U/L (14-36); Alkaline Phosphatase 70 U/L (38-126); Anion Gap 7 mmol/L; Blood Urea Nitrogen 5 mg/dL (7-17); Calcium 8.3 mg/dL (8.4-10.2); Carbon Dioxide 24 mmol/L (22-30); Chloride 102 mmol/L (98-107); Glucose 176 mg/dL (74-99); Magnesium 1.4 mg/dL (1.6-2.3); Non-African American GFR(MDRD) >60 (>60 ml/min/1.73 sqM); Potassium 3.7 mmol/L (3.5-5.1); Sodium 133 mmol/L (137-145); Total Bilirubin 0.6 mg/dL (0.2-1.3); Total Protein 4.3 g/dL (6.3-8.2)
[2017-02-07] MEDS: IPRATROPIUM-ALBUTEROL 3 ML NEB INHALATION SCH ×4 (07:12→20:46)
[2017-02-07] MEDS: BUDESONIDE 1 MG/2 ML NEBU INHALATION SCH ×2 (07:12→20:46)
[2017-02-07 07:33] LABS: C Reactive Protein 23.8 mg/L (<10.0)
[2017-02-07 07:50] LABS: Add Differential Manual Differential
[2017-02-07 07:53] LABS: Band Neutrophils % 1 %; Metamyelocytes % 2 %; Nucleated Red Blood Cells 0 /100 WBC (0-0); Polychromasia Present; Total Cells Counted 200
[2017-02-07] MEDS: GABAPENTIN 100 MG CAP PO SCH ×3 (08:03→20:01)
[2017-02-07] MEDS: ENOXAPARIN 40 MG/0.4 ML SYRINGE SQ SCH (08:03)
[2017-02-07] MEDS: ASPIRIN 81 MG CHEW PO SCH (08:03)
[2017-02-07] MEDS: PRAVASTATIN SODIUM 20 MG TAB PO SCH (08:03)
[2017-02-07] MEDS: metroNIDAZOLE-NS PMX 500 MG in SALINE 1 100ML.BAG IVPB SCH ×3 (08:03→23:02)
[2017-02-07 08:35] LABS: Erythrocyte Sedimentation Rate 24 mm/hr (0-20)
--- NOTE | 2017-02-07 09:55 | CONS ---
CONSULTATION DATE OF SERVICE: 02/06/2017 REASON FOR CONSULTATION: Colitis. HISTORY OF PRESENT ILLNESS: The patient is a 66-year-old female, who presented to the [facility] ER on 02/02/2017 with a chief complaint of abdominal pain. Pain has been mostly in the right lower abdominal area and started while the patient was trying to have a bowel movement. The patient did have a history of constipation prior to that and did have a bowel movement the day before she started having abdominal pain and it was really hard, but no blood or mucus in the stool. The pain has been mostly on the right lower side area, intense about 5 to 6/10 and no radiation. The patient denies any nausea, vomiting. No diarrhea. No fever. No chills. With these symptoms, the patient was evaluated by the ER physician where the patient did have a CT abdomen and pelvis which did show wall thickening of the distal stomach seen and wall thickening of descending colon with associated surrounding pericolonic inflammatory changes consistent with infectious versus inflammatory colitis. The patient did have elevated white count at that time of 13,000 but no fever. Since then the patient has been evaluated by General Surgery, Primary and GI Services and has been treated with Flagyl and Levaquin. However, the patient did have persistent pain with no improvement and the patient remains to be constipated. The patient did have a repeat CT of the abdomen and pelvis done on 02/04/2017 which did shows progression of abnormal wall thickening from the descending colon now involving a significant portion of the redundant sigmoid colon and rectum. Differential includes infectious, inflammatory and ischemic etiologies. No free or mesenteric air. ID was consulted this morning for further recommendation regarding antibiotic therapy. REVIEW OF SYSTEMS: CONSTITUTIONAL: Positive for weakness but no fever. EYES: No complaint. ENT: No complaint. RESPIRATORY: No complaint. CARDIOVASCULAR: No complaint. GENITOURINARY: No complaint. GASTROINTESTINAL: As per HPI. MUSCULOSKELETAL: No complaint. INTEGUMENTARY: No complaint. PSYCHOLOGICAL: No complaint. ENDOCRINE: No complaint. NEUROLOGIC. No complaint. PAST MEDICAL HISTORY: Significant for diabetes mellitus, fibromyalgia, hypertension, hyperlipidemia, hypothyroidism, takotsubo syndrome, cervical cancer. PAST SURGICAL HISTORY: Hysterectomy, colonoscopy with benign polyps removed, heart catheterization, tubal ligation and . SOCIAL HISTORY: Current everyday smoker. No drinking or drug use. FAMILY HISTORY: Father history coronary artery disease, at age of 52 from myocardial infarction, history COPD and mother with history of seizure disorder from brain aneurysm. ALLERGIES: No known drug allergies. MEDICATIONS: Include the patient is currently on DuoNeb, [place], aspirin, Pulmicort, Klonopin, Flexeril, Valium, Lovenox, Neurontin, Lantus, Humalog, Flagyl, Levaquin, Pravachol and Requip. EXAMINATION: Blood pressure 109/58 with a pulse of 89, temperature 97.5. She is 96% on room air. General description is a middle-aged female lying in bed, in no distress. No tachypnea or accessory muscle of respiration use. HEENT: Shows no pallor or scleral icterus. Oral mucosa is dry. NECK: Trachea is central. No thyromegaly. LUNGS: Unlabored breathing. Clear to auscultation anteriorly. No wheeze or crackle. HEART: S1, S2. Regular rate and rhythm. ABDOMEN: Soft, mildly distended. Tender right lower quadrant area. No guarding. No rigidity. No organomegaly. EXTREMITIES: No edema feet. SKIN EXAMINATION: No rash or mass palpable. NEUROLOGICAL: Patient is awake, alert, oriented x3. Mood and affect normal. LAB: Hemoglobin 11.6, white count 6.1, admission white count was 13.6, BUN of 5, creatinine 0.67, lactic acid 1.5 on 02/02. No cultures done during this admission. CT report as mentioned above. DIAGNOSTIC IMPRESSION AND PLAN: Patient with evidence of colitis in a patient admitted to the hospital with more sudden onset of abdominal pain. The patient did have chronic constipation with initial involvement of the descending colon but now with progression to sigmoid colon and rectal area with a question of possible ischemic colitis in a patient who did have significant constipation from overtly distended colon to be the likely etiology. This has not responded very well to the IV Levaquin and Flagyl therapy. PLAN: 1. Blood cultures x1 STAT. 2. We will discontinue Levaquin and start the patient on Zosyn 3.375 g q.8h and continue patient on Flagyl. 3. We will follow the patient very closely and adjust her medications further if needed. Thank you for this consultation. I will follow this patient along with you. MMODL / IJN: [id number] /
--- NOTE | 2017-02-07 10:25 | P.PN ---
Subjective This is a 66-year-old female in of Dr. Eugene with a previous medical history significant for a mild coronary artery disease involving the LAD 20-30% , LCx 20-30%, and ostial lesion of the diagonal branch of 40%, diabetes mellitus 2, chronic tobacco use and dependence with a chronic obstructive pulmonary disease, patient was brought into the emergency department at [facility] after she had an episode of the abdominal pain left sided associated with generalized weakness and patient was going to the bathroom yesterday and she had a syncopal episode, she had checked her blood glucose level was high patient ended up coming to the ER at [place] and she was found to have a diabetic ketoacidosis with a bicarb level of 8 her blood glucose levels were greater than 600 she ended up going for a computed tomography scan of the abdomen that did show significant colitis of the left lower quadrant as well as significant induration of the stomach at that time. Patient was started on IV antibiotic in the form of Levaquin 500 mg IV piggyback every 24 hours as well as Flagyl 500 mg IV piggyback every 8 hours, she was placed on insulin drip, she was admitted to the hospital for further evaluation and general surgery consultation was obtained as well as GI consultation. Her lactic acid was 1.5, she was placed on IV fluid resuscitation as well and the patient will have repeated lactic acid in the next 6 hours. 02/03: Echocardiogram revealed tachycardia greater than 100 bpm, EF 65-70%, mild aortic sclerosis, trace mitral regurgitation, trace tricuspid regurgitation, no pulmonary hypertension. Patient's blood sugar at 2300 was 96 but now she is back to 324. She was given Lantus 21 units last night and is currently on Humalog 7 units before each meal and scale. Lantus will be increased to 28 units and Humalog to 8 units with breakfast and lunch and 10 units at supper. Patient's abdomen is quite tender today for which x-rays ordered showing ileus. Dulcolax suppository ordered. 02/04: Patient states that she had a small bowel movement after suppository yesterday. She denies any nausea. Abdomen is softer but continues to be tender. CAT scan of the abdomen and pelvis with contrast showed progression of abdominal wall thickening from descending colon now involving significant portions of redundant sigmoid colon and rectum. Differential includes infectious, inflammatory and ischemic etiologies. No free or mesenteric air identified. She is followed by general surgeon and GI. Blood sugars are improved but remain in the 200s. 02/05: Patient states she has still not had a bowel movement and continues to have abdominal tenderness. Abdominal x-ray ordered which shows suspected partial distal colonic obstruction due to inflammatory change or colitis at the level of the sigmoid colon. Nursing to call this to general surgeon. Blood sugars are improved his Lantus was increased to 32 units last night. Sodium is at 132. 02/06: Patient was seen by Dr. Cook yesterday and plan is to continue conservative measures. She is currently on Levaquin and Flagyl and nothing by mouth status. Blood sugars are running 164-208. Consult with Dr. Coffey added. Patient states she has not had a bowel movement. She is not passing gas. She occasionally burps. She states her pain is about the same. 02/07: Dr. Cook has advised the liquid diet, oral vancomycin for possible C. difficile colitis and repeat CAT scan in 3-[address] Coffey has evaluated the patient and discontinued Levaquin with plan to continue Flagyl and zosyn. Patient continues to have abdominal pain but not worsening. No bowel movement. Objective - Vital Signs Vital signs: Vital Signs Temp 97.3 F L 02/07/17 04:00 Pulse 86 02/07/17 07:28 Resp 16 02/07/17 07:22 BP 103/58 02/07/17 04:00 Pulse Ox 96 02/07/17 04:00 Intake & Output 02/06/17 02/07/17 02/07/17 18:59 06:59 18:59 Intake Total 600 Output Total 0 0 Balance 0 600 0 Weight 74.2 kg Intake: IV 550 .9 450 metroNIDAZOLE-NS PMX 500 100 mg In Saline 1 100ml.bag @ 100 mls/hr IVPB Q8HR [facility] Rx#:[id number] Intake, IV Titration 50 Amount Piperacillin-Tazobactam 3 50 .375 gm In Dextrose/Water 1 50ml.bag @ 12.5 mls/hr IVPB Q8HR [facility] Rx#: [id number] Output: Stool 0 0 Other: Voiding Method Toilet # Voids 2 1 - Exam General appearance: mild distress - EENT Eyes: anicteric sclerae, EOMI, PERRLA, no ptosis, no scleral icterus, normal appearance ENT: hearing grossly normal, NA/AT, normal oropharynx, no thrush Ears: bilateral: normal - Neck Neck: no lymphadenopathy, normal ROM, no rigidity, no stridor, no thyromegaly Carotids: bilateral: upstroke normal Thyroid: bilateral: normal size - Respiratory Respiratory: bilateral: diminished, negative: dullness, rales, rhonchi, wheezing , prolonged expiration, prolonged inspiration - Cardiovascular Rhythm: regular Heart sounds: normal: S1, S2 Abnormal Heart Sounds: systolic murmur, no S3 Gallop, no S4 Gallop, no click - Gastrointestinal General gastrointestinal: normal bowel sounds, soft, tenderness, no umbilical hernia, no ventral hernia Localized gastrointestinal: tender: LLQ - Integumentary Integumentary: normal, normal turgor - Neurologic Neurologic: CNII-XII intact - Musculoskeletal Musculoskeletal: generalized weakness, strength equal bilaterally - Psychiatric Psychiatric: A&O x's 3, appropriate affect, intact judgment & insight - Labs CBC & Chem 7: 02/07/17 06:05 02/07/17 06:05 Labs: Abnormal Lab Results - Last 24 Hours (Table) 02/06/17 02/06/17 02/06/17 Range/Units 11:43 17:04 20:51 WBC (3.8-10.6) k/uL RBC (3.80-5.40) m/uL Hgb (11.4-16.0) gm/dL Hct (34.0-46.0) % RDW (11.5-15.5) % Lymphocytes # (Manual) (1.0-4.8) k/uL Metamyelocytes # (Man) (0) k/uL Sodium (137-145) mmol/L BUN (7-17) mg/dL Glucose (74-99) mg/dL POC Glucose (mg/dL) 140 H 170 H 161 H (75-99) mg/dL Calcium (8.4-10.2) mg/dL Magnesium (1.6-2.3) mg/dL C-Reactive Protein (<10.0) mg/L Total Protein (6.3-8.2) g/dL Albumin (3.5-5.0) g/dL 02/07/17 02/07/17 02/07/17 Range/Units 05:36 06:05 06:05 WBC 3.4 L (3.8-10.6) k/uL RBC 3.78 L (3.80-5.40) m/uL Hgb 11.1 L (11.4-16.0) gm/dL Hct 33.9 L (34.0-46.0) % RDW 16.3 H (11.5-15.5) % Lymphocytes # (Manual) 0.99 L (1.0-4.8) k/uL Metamyelocytes # (Man) 0.07 H (0) k/uL Sodium 133 L (137-145) mmol/L BUN 5 L (7-17) mg/dL Glucose 176 H (74-99) mg/dL POC Glucose (mg/dL) 182 H (75-99) mg/dL Calcium 8.3 L (8.4-10.2) mg/dL Magnesium 1.4 L (1.6-2.3) mg/dL C-Reactive Protein 23.8 H (<10.0) mg/L Total Protein 4.3 L (6.3-8.2) g/dL Albumin 2.3 L (3.5-5.0) g/dL Assessment and Plan Plan: 1. Acute colitis possibly infectious, possible ischemic colitis with suspected partial distal colonic obstruction. Continue Levaquin 500 mg piggyback every 24 hours as well as Flagyl 500 mg piggyback every 8 hours, GI consultation from Dr. Mcfarland patient did have a colonoscopy in October [address] Hammer that was totally normal. It did show small polyp that was benign. Keep the patient on nothing per mouth. 2. Diabetic ketoacidosis. Continue IV fluid resuscitation, insulin drip has been discontinued and patient is on Lantus, scheduled Humalog and Humalog scale. 2. COPD without exacerbation. we will continue the patient on Pulmicort 1 mg nebulization twice every day, continue DuoNeb 3 mg nebulization 4 times every day. 3. CAD post left heart catheterization. Continue aspirin 81 mg once every day and pravastatin 20 mg at bedtime. 4. Diabetes mellitus type 2 uncontrolled . Currently on insulin drip, we will continue insulin drip for the next 24 hours and we'll transition to her Lantus and Humalog in the next week 4 hours. 5. Hypothyroidism. We will continue levothyroxin 125 g orally once every day. 6. RLS . Continue patient on Requip 2 mg orally bedtime along with Klonopin 0.5 mg at bedtime. 7. Degenerative disc disease of the cervical spine. Continue Flexeril 10 mg orally 3 times every day along with the gabapentin 100 mg orally 2 times every day AR continue [place] as needed for pain. 8. Hyperlipidemia. Continue pravastatin 20 mg at bedtime. 9. Vitamin D deficiency. Hold vitamin D supplement for now. 10. DVT prophylaxis. Continue with Lovenox 40 mg subcutaneously every 24 hours. Bilateral knee-high GOGO hose. 11. GI prophylaxis. Continue Protonix 40 mg orally once every day. 12. Estimated length of stay 2 days. 13. Full code. Discharge plan: PT has recommended home with homecare. Impression and plan of care have been directed as dictated by the signing physician. Geeta Monroe nurse practitioner acting as scribe for signing physician.
[2017-02-07 11:50] LABS: Glucose,Whole Blood 88 mg/dL (75-99)
--- NOTE | 2017-02-07 12:46 | P.PN ---
Subjective Principal diagnosis: Colitis. The patient is a 66-year-old female who was admitted secondary to abdominal pain. She has been on Levaquin and Flagyl without much improvement of her abdominal pain. She is now on clear liquid diet and tolerating. She has been ambulating and "I feel better after walking. She still reports abdominal pain with walking however. Infectious disease has also been consult today. Abdominal pain has not worsened however. She has not had a bowel movement. Objective - Vital Signs Vital signs: Vital Signs Temp 97.6 F 02/07/17 11:38 Pulse 90 02/07/17 11:38 Resp 16 02/07/17 11:38 BP 110/60 02/07/17 11:38 Pulse Ox 95 02/07/17 11:38 Intake & Output 02/06/17 02/07/17 02/07/17 18:59 06:59 18:59 Intake Total 600 Output Total 0 0 Balance 0 600 0 Weight 74.2 kg Intake: IV 550 .9 450 metroNIDAZOLE-NS PMX 500 100 mg In Saline 1 100ml.bag @ 100 mls/hr IVPB Q8HR [facility] Rx#:[id number] Intake, IV Titration 50 Amount Piperacillin-Tazobactam 3 50 .375 gm In Dextrose/Water 1 50ml.bag @ 12.5 mls/hr IVPB Q8HR [facility] Rx#: [id number] Output: Stool 0 0 Other: Voiding Method Toilet # Voids 2 1 - Exam GENERAL: Well developed and in no acute distress. Pleasant. HEENT: No sclera icterus. Extraocular movements grossly intact. Moist buccal mucosa. Head is atraumatic, normocephalic. Hears conversational speech. No nasal drainage. She is edentulous. NECK: Supple without lymphadenopathy. No JV distention. CHEST: Non-labored respirations and equal bilateral excursions. CARDIOVASCULAR: Regular rate and rhythm. Palpable 2+ radial pulses. ABDOMEN: Soft and nondistended. Tenderness along the right lower quadrant and left lower quadrant which is stable. MUSCULOSKELETAL: No clubbing, cyanosis or edema. NEUROLOGIC: No focal or lateralizing signs. Cranial nerves II-12. PSYCH: Appropriate affect. Alert and oriented to person, place and time. SKIN: Good skin turgor. Will perfused. - Labs CBC & Chem 7: 02/07/17 06:05 02/07/17 06:05 Labs: Abnormal Lab Results - Last 24 Hours (Table) 02/06/17 02/06/17 02/07/17 Range/Units 17:04 20:51 05:36 WBC (3.8-10.6) k/uL RBC (3.80-5.40) m/uL Hgb (11.4-16.0) gm/dL Hct (34.0-46.0) % RDW (11.5-15.5) % Lymphocytes # (Manual) (1.0-4.8) k/uL Metamyelocytes # (Man) (0) k/uL ESR (0-20) mm/hr Sodium (137-145) mmol/L BUN (7-17) mg/dL Glucose (74-99) mg/dL POC Glucose (mg/dL) 170 H 161 H 182 H (75-99) mg/dL Calcium (8.4-10.2) mg/dL Magnesium (1.6-2.3) mg/dL C-Reactive Protein (<10.0) mg/L Total Protein (6.3-8.2) g/dL Albumin (3.5-5.0) g/dL 02/07/17 02/07/17 Range/Units 06:05 06:05 WBC 3.4 L (3.8-10.6) k/uL RBC 3.78 L (3.80-5.40) m/uL Hgb 11.1 L (11.4-16.0) gm/dL Hct 33.9 L (34.0-46.0) % RDW 16.3 H (11.5-15.5) % Lymphocytes # (Manual) 0.99 L (1.0-4.8) k/uL Metamyelocytes # (Man) 0.07 H (0) k/uL ESR 24 H (0-20) mm/hr Sodium 133 L (137-145) mmol/L BUN 5 L (7-17) mg/dL Glucose 176 H (74-99) mg/dL POC Glucose (mg/dL) (75-99) mg/dL Calcium 8.3 L (8.4-10.2) mg/dL Magnesium 1.4 L (1.6-2.3) mg/dL C-Reactive Protein 23.8 H (<10.0) mg/L Total Protein 4.3 L (6.3-8.2) g/dL Albumin 2.3 L (3.5-5.0) g/dL Assessment and Plan (1) Bilateral lower abdominal pain Status: Acute (2) Constipation Status: Acute (3) DKA (diabetic ketoacidoses) Status: Acute (4) Acute colitis Status: Acute Plan: 1. Agree with infectious disease consultation for antibiotic management. 2. May benefit from repeat CT abdomen and pelvis. Her last was on 02/04/2017. Recommend repeat in 3-5 days. 3. May also benefit from change of antibiotic to oral vancomycin to address severity of colitis.
--- NOTE | 2017-02-07 15:31 | PN ---
PROGRESS NOTE Patient is a 66-year-old pleasant white female who was admitted to the hospital because of lower abdominal pain that started about 2 days prior to hospitalization. She feels extremely constipated and continued to have progressively worsening lower abdominal pain. Came to the emergency room and also was noted to have a Her initial CAT scan was done on February 03 that showed some inflammatory changes in the right lower quadrant as well as in the left lower quadrant in the descending and sigmoid colon. She was started on empiric antibiotics with Levaquin and Flagyl. However her pain continued to progressively get worse and hence surgery was also consulted. She had a repeat CT scan on February 05. Once again she showed persistent changes in the right lower quadrant area with thickening of the right colon as well as left colon. Yesterday her antibiotics were changed to Zosyn and continues to be on IV Flagyl. This morning patient states that she still feels the same. Still has pain in the right lower quadrant area. Did not have any bowel movements. No nausea, no vomiting. No fever, chills or night sweats. PHYSICAL EXAMINATION: She appears comfortable. No apparent distress. VITAL SIGNS: Stable. Blood pressure 103/58, pulse rate 84, temperature 97.3. HEENT examination unremarkable. Conjunctivae pink. Sclerae anicteric. Oral cavity, no lesions. Neck: No jugular venous distention or lymph node enlargement. Chest was clear to auscultation. HEART: Regular rate and rhythm. ABDOMEN: Soft. There was tenderness in the right lower quadrant area but no rebound or rigidity. There is some tenderness in the left lower quadrant also and mild in the epigastric area. Bowel sounds are positive. No organomegaly. EXTREMITIES: No pedal edema. SKIN: No rashes. Neuro: She is alert and oriented x3. No focal deficits. LAB: Labs from today: WBC 3.4, hemoglobin 11.1, platelets at 215. LFTs are within normal limits. C-reactive protein 23.8. Sedimentation rate is pending. IMPRESSION: This lady presents to the hospital with lower abdominal pain for the last one week duration associated with severe constipation. Two CAT scans done while in the hospital showed inflammatory changes in the right colon as well as in the left colon. Colonoscopy October of 2016 was unremarkable other than a small polyp. Most likely we are dealing with infectious colitis with possibility of ischemic colitis is also being considered. At this time, she remains on broad-spectrum antibiotics which have been changed to Zosyn as well as a Flagyl as of yesterday. Clinically she looks better today. RECOMMENDATIONS: 1. Continue with current antibiotic regimen. 2. Will start on a clear liquid diet. 3. No plans for any repeat endoscopy workup. Will follow her closely with you during hospital stay. Thank you for this consultation. KAM / OSCARN: [id number] /
[2017-02-07 16:33] LABS: Glucose,Whole Blood 250 mg/dL (75-99)
[2017-02-07] MEDS: DIAZEPAM 5 MG TAB PO SCH (20:00)
[2017-02-07] MEDS: CYCLOBENZAPRINE 10 MG TAB PO SCH (20:01)
[2017-02-07 21:18] LABS: Glucose,Whole Blood 104 mg/dL (75-99)
[2017-02-07] MEDS: INSULIN GLARGINE 100 UNIT/ML 10 ML VIAL SQ SCH (21:25)
[2017-02-07] MEDS: MAGNESIUM SULFATE-D5W PMX 1 GM in DEXTROSE/WATER 1 100ML.BAG IVPB SCH ×2 (21:25→23:02)
[2017-02-08] MEDS: PIPERACILLIN-TAZOBACTAM 3.375 GM in DEXTROSE/WATER 1 50ML.BAG IVPB SCH ×4 (01:03→23:56)
[2017-02-08] MEDS: HYDROcodone/APAP 10-325MG 1 EACH TAB PO PRN ×3 (01:03→10:38)
[2017-02-08] MEDS: LEVOTHYROXINE 125 MCG TAB PO SCH (06:05)
[2017-02-08 06:32] LABS: Glucose,Whole Blood 203 mg/dL (75-99)
[2017-02-08] MEDS: INSULIN LISPRO (humaLOG) 300 UNIT/3 ML VIAL SQ SCH ×7 (06:36→20:58)
[2017-02-08] MEDS: IPRATROPIUM-ALBUTEROL 3 ML NEB INHALATION SCH ×4 (07:27→20:22)
[2017-02-08] MEDS: BUDESONIDE 1 MG/2 ML NEBU INHALATION SCH ×2 (07:27→20:22)
[2017-02-08] MEDS ORDERED: BISACODYL 10 MG SUPP RECTAL STA (09:03)
--- NOTE | 2017-02-08 09:03 | P.PN ---
Subjective Principal diagnosis: colitis No bowel movements. Minimal flatus. Still reports bilateral lower abdominal pain. Tolerating clear liquids. No nausea vomiting. Afebrile. IV antibiotics. Repeat CT abdomen last week reported thickening left colon infectious versus ischemic versus inflammatory. No free air. Objective - Vital Signs Vital signs: Vital Signs Temp 97.2 F L 02/08/17 06:12 Pulse 94 02/08/17 07:30 Resp 16 02/08/17 06:12 BP 130/65 02/08/17 06:12 Pulse Ox 95 02/08/17 06:12 Intake & Output 02/07/17 02/08/17 02/08/17 18:59 06:59 18:59 Intake Total 550 Output Total 0 Balance 0 550 Intake: IV 300 .9 100 metroNIDAZOLE-NS PMX 500 200 mg In Saline 1 100ml.bag @ 100 mls/hr IVPB Q8HR [facility] Rx#:[id number] Intake, IV Titration 250 Amount Magnesium Sulfate-D5w Pmx 200 1 gm In Dextrose/Water 1 100ml.bag @ 100 mls/hr IVPB Q1H [facility] Rx#: [id number] Piperacillin-Tazobactam 3 50 .375 gm In Dextrose/Water 1 50ml.bag @ 12.5 mls/hr IVPB Q8HR [facility] Rx#: [id number] Output: Stool 0 Other: Voiding Method Toilet # Voids 1 - Exam General appearance: The patient is alert, oriented, in no acute distress. HET: Head is normocephalic and atraumatic. Pupils are equal and reactive. Oropharynx is clear without lesions. Neck: Supple without lymphadenopathy. Trachea midline. Heart: S1 S2. Regular rate and rhythm. Lungs: No crackles or wheezes are heard. Abdomen: Soft, mild bilateral lower abdominal tenderness greater on right and left, nondistended with bowel sounds. No peritoneal signs. No palpable organomegaly or masses. Extremities: Normal skin color and turgor. No cyanosis, rash, ulceration, clubbing, or edema. Radial and pedal pulses are 2/4 bilaterally. Neurological: No focal deficits. Strength and sensation are grossly intact. - Labs CBC & Chem 7: 02/07/17 06:05 02/07/17 06:05 Labs: Abnormal Lab Results - Last 24 Hours (Table) 02/07/17 02/07/17 02/07/17 Range/Units 06:05 06:05 16:30 Lymphocytes # (Manual) 0.99 L (1.0-4.8) k/uL Metamyelocytes # (Man) 0.07 H (0) k/uL ESR 24 H (0-20) mm/hr POC Glucose (mg/dL) 250 H (75-99) mg/dL C-Reactive Protein 23.8 H (<10.0) mg/L 02/07/17 02/08/17 Range/Units 20:58 06:29 Lymphocytes # (Manual) (1.0-4.8) k/uL Metamyelocytes # (Man) (0) k/uL ESR (0-20) mm/hr POC Glucose (mg/dL) 104 H 203 H (75-99) mg/dL C-Reactive Protein (<10.0) mg/L Microbiology - Last 24 Hours (Table) 02/06/17 16:47 Blood Culture - Preliminary Blood No Growth after 24 hours Assessment and Plan (1) Colitis Narrative/Plan: Self-limiting infectious possible inflammatory possible ischemic Status: Acute Plan: 1. Dr. Mcfarland recommends laxative/suppository. 2. General surgery following. 3. Continue diet. 4. IV abx. Assessment and plan a care discussed with Dr. Mcfarland
[2017-02-08] MEDS: PRAVASTATIN SODIUM 20 MG TAB PO SCH (09:27)
[2017-02-08] MEDS: ASPIRIN 81 MG CHEW PO SCH (09:27)
[2017-02-08] MEDS: metroNIDAZOLE-NS PMX 500 MG in SALINE 1 100ML.BAG IVPB SCH ×3 (09:27→23:56)
[2017-02-08] MEDS: GABAPENTIN 100 MG CAP PO SCH ×3 (09:27→20:57)
[2017-02-08] MEDS: ENOXAPARIN 40 MG/0.4 ML SYRINGE SQ SCH (09:27)
--- NOTE | 2017-02-08 10:17 | PN ---
PROGRESS NOTE DATE OF SERVICE: 02/07/2017 REASON FOR FOLLOWUP: Possible ischemic colitis. INTERVAL HISTORY: The patient is afebrile. She is complaining of pain in abdominal area. It is mostly on the left side compared to the right side yesterday. Still did not have any bowel movements. Some nausea, but no vomiting. No chest pain, shortness of breath or cough. EXAMINATION: Blood pressure is 109/58 with a pulse of 89, temperature 97.6. She is 96% on room air. General description is an elderly female up in the bed in no distress. RESPIRATORY SYSTEM: Unlabored breathing. Clear to auscultation anteriorly HEART: S1, S2. Regular rate and rhythm. ABDOMEN: Soft. Very minimal tenderness. No guarding or rigidity. LAB: Hemoglobin is 11.1, white count of 3.4 with a BUN of 5, creatinine 0.68. DIAGNOSTIC IMPRESSION AND PLAN: Patient with colitis with a question of possible ischemia and the patient did have significant constipation and no diarrhea. Antibiotics were adjusted to Zosyn and Flagyl, will be continued. Waiting for the condition to stabilize. Continue supportive care. MMODL / IJN: [id number] /
[2017-02-08 12:46] LABS: Glucose,Whole Blood 157 mg/dL (75-99)
[2017-02-08 14:11] VITALS: BMI 26.4
--- NOTE | 2017-02-08 14:48 | P.PN ---
Subjective Principal diagnosis: Colitis with DKA Patient is doing ok. She has had a painful bowel movement but has some moderaet lower abdominal pain. Tolerating liquid diet. Objective - Vital Signs Vital signs: Vital Signs Temp 96.9 F L 02/08/17 12:41 Pulse 79 02/08/17 12:41 Resp 18 02/08/17 12:41 BP 103/61 02/08/17 12:41 Pulse Ox 96 02/08/17 12:41 Intake & Output 02/07/17 02/08/17 02/08/17 18:59 06:59 18:59 Intake Total 550 Output Total 0 0 Balance 0 550 0 Weight 74.2 kg Intake: IV 300 .9 100 metroNIDAZOLE-NS PMX 500 200 mg In Saline 1 100ml.bag @ 100 mls/hr IVPB Q8HR [facility] Rx#:[id number] Intake, IV Titration 250 Amount Magnesium Sulfate-D5w Pmx 200 1 gm In Dextrose/Water 1 100ml.bag @ 100 mls/hr IVPB Q1H [facility] Rx#: [id number] Piperacillin-Tazobactam 3 50 .375 gm In Dextrose/Water 1 50ml.bag @ 12.5 mls/hr IVPB Q8HR [facility] Rx#: [id number] Output: Stool 0 0 Other: Voiding Method Toilet Toilet # Voids 1 3 # Bowel Movements 1 - Constitutional General appearance: Present: cooperative - EENT Eyes: Present: PERRLA - Gastrointestinal Gastrointestinal Comment(s): tender lower abdomen, not guarding but tender General gastrointestinal: Absent: distended - Labs CBC & Chem 7: 02/07/17 06:05 02/07/17 06:05 Labs: Abnormal Lab Results - Last 24 Hours (Table) 02/07/17 02/07/17 02/08/17 Range/Units 16:30 20:58 06:29 POC Glucose (mg/dL) 250 H 104 H 203 H (75-99) mg/dL 02/08/17 Range/Units 12:44 POC Glucose (mg/dL) 157 H (75-99) mg/dL Microbiology - Last 24 Hours (Table) 02/06/17 16:47 Blood Culture - Preliminary Blood No Growth after 24 hours Assessment and Plan (1) Abdominal pain Status: Acute (2) Colitis Status: Acute (3) DKA (diabetic ketoacidoses) Status: Acute (4) Acute colitis Status: Acute (5) Acute coronary syndrome Status: Acute (6) Diabetes Status: Acute Plan: Patient Was seen and examined. Her blood sugars seem to be in better control. She is clinically stable at this time. Ok to adgvance to full liquid diet COntinue following her closely. Non surgical at this time.
--- NOTE | 2017-02-08 15:08 | P.PN ---
Subjective This is a 66-year-old female in of Dr. Eugene with a previous medical history significant for a mild coronary artery disease involving the LAD 20-30% , LCx 20-30%, and ostial lesion of the diagonal branch of 40%, diabetes mellitus 2, chronic tobacco use and dependence with a chronic obstructive pulmonary disease, patient was brought into the emergency department at [facility] after she had an episode of the abdominal pain left sided associated with generalized weakness and patient was going to the bathroom yesterday and she had a syncopal episode, she had checked her blood glucose level was high patient ended up coming to the ER at [place] and she was found to have a diabetic ketoacidosis with a bicarb level of 8 her blood glucose levels were greater than 600 she ended up going for a computed tomography scan of the abdomen that did show significant colitis of the left lower quadrant as well as significant induration of the stomach at that time. Patient was started on IV antibiotic in the form of Levaquin 500 mg IV piggyback every 24 hours as well as Flagyl 500 mg IV piggyback every 8 hours, she was placed on insulin drip, she was admitted to the hospital for further evaluation and general surgery consultation was obtained as well as GI consultation. Her lactic acid was 1.5, she was placed on IV fluid resuscitation as well and the patient will have repeated lactic acid in the next 6 hours. 02/03: Echocardiogram revealed tachycardia greater than 100 bpm, EF 65-70%, mild aortic sclerosis, trace mitral regurgitation, trace tricuspid regurgitation, no pulmonary hypertension. Patient's blood sugar at 2300 was 96 but now she is back to 324. She was given Lantus 21 units last night and is currently on Humalog 7 units before each meal and scale. Lantus will be increased to 28 units and Humalog to 8 units with breakfast and lunch and 10 units at supper. Patient's abdomen is quite tender today for which x-rays ordered showing ileus. Dulcolax suppository ordered. 02/04: Patient states that she had a small bowel movement after suppository yesterday. She denies any nausea. Abdomen is softer but continues to be tender. CAT scan of the abdomen and pelvis with contrast showed progression of abdominal wall thickening from descending colon now involving significant portions of redundant sigmoid colon and rectum. Differential includes infectious, inflammatory and ischemic etiologies. No free or mesenteric air identified. She is followed by general surgeon and GI. Blood sugars are improved but remain in the 200s. 02/05: Patient states she has still not had a bowel movement and continues to have abdominal tenderness. Abdominal x-ray ordered which shows suspected partial distal colonic obstruction due to inflammatory change or colitis at the level of the sigmoid colon. Nursing to call this to general surgeon. Blood sugars are improved his Lantus was increased to 32 units last night. Sodium is at 132. 02/06: Patient was seen by Dr. Cook yesterday and plan is to continue conservative measures. She is currently on Levaquin and Flagyl and nothing by mouth status. Blood sugars are running 164-208. Consult with Dr. Coffey added. Patient states she has not had a bowel movement. She is not passing gas. She occasionally burps. She states her pain is about the same. 02/07: Dr. Cook has advised the liquid diet, oral vancomycin for possible C. difficile colitis and repeat CAT scan in 3-[address] improvement[address] Coffey has evaluated the patient and discontinued Levaquin with plan to continue Flagyl and zosyn. Patient continues to have abdominal pain but not worsening. No bowel movement. 02/08: Patient is tolerating clear liquid diet with no nausea or vomiting. She has not had a bowel movement, and no flatus. She is continued on IV Flagyl and Zosyn. Patient is followed by GI with recommendations for laxatives or suppository. [facility]. Objective - Vital Signs Vital signs: Vital Signs Temp 97.2 F L 02/08/17 06:12 Pulse 94 02/08/17 07:30 Resp 16 02/08/17 08:00 BP 130/65 02/08/17 06:12 Pulse Ox 95 02/08/17 06:12 Intake & Output 02/07/17 02/08/17 02/08/17 18:59 06:59 18:59 Intake Total 550 Output Total 0 0 Balance 0 550 0 Weight 74.2 kg Intake: IV 300 .9 100 metroNIDAZOLE-NS PMX 500 200 mg In Saline 1 100ml.bag @ 100 mls/hr IVPB Q8HR [facility] Rx#:[id number] Intake, IV Titration 250 Amount Magnesium Sulfate-D5w Pmx 200 1 gm In Dextrose/Water 1 100ml.bag @ 100 mls/hr IVPB Q1H [facility] Rx#: [id number] Piperacillin-Tazobactam 3 50 .375 gm In Dextrose/Water 1 50ml.bag @ 12.5 mls/hr IVPB Q8HR [facility] Rx#: [id number] Output: Stool 0 0 Other: Voiding Method Toilet Toilet # Voids 1 - Exam General appearance: mild distress - EENT Eyes: anicteric sclerae, EOMI, PERRLA, no ptosis, no scleral icterus, normal appearance ENT: hearing grossly normal, NA/AT, normal oropharynx, no thrush Ears: bilateral: normal - Neck Neck: no lymphadenopathy, normal ROM, no rigidity, no stridor, no thyromegaly Carotids: bilateral: upstroke normal Thyroid: bilateral: normal size - Respiratory Respiratory: bilateral: diminished, negative: dullness, rales, rhonchi, wheezing , prolonged expiration, prolonged inspiration - Cardiovascular Rhythm: regular Heart sounds: normal: S1, S2 Abnormal Heart Sounds: systolic murmur, no S3 Gallop, no S4 Gallop, no click - Gastrointestinal General gastrointestinal: normal bowel sounds, soft, tenderness, no umbilical hernia, no ventral hernia Localized gastrointestinal: tender: LLQ - Integumentary Integumentary: normal, normal turgor - Neurologic Neurologic: CNII-XII intact - Musculoskeletal Musculoskeletal: generalized weakness, strength equal bilaterally - Psychiatric Psychiatric: A&O x's 3, appropriate affect, intact judgment & insight - Labs CBC & Chem 7: 02/07/17 06:05 02/07/17 06:05 Labs: Abnormal Lab Results - Last 24 Hours (Table) 02/07/17 02/07/17 02/08/17 Range/Units 16:30 20:58 06:29 POC Glucose (mg/dL) 250 H 104 H 203 H (75-99) mg/dL Microbiology - Last 24 Hours (Table) 02/06/17 16:47 Blood Culture - Preliminary Blood No Growth after 24 hours Assessment and Plan Plan: 1. Acute colitis possibly infectious, possible ischemic colitis with suspected partial distal colonic obstruction. Continue Levaquin 500 mg piggyback every 24 hours as well as Flagyl 500 mg piggyback every 8 hours, GI consultation from Dr. Mcfarland patient did have a colonoscopy in October [address] Hammer that was totally normal. It did show small polyp that was benign. Keep the patient on nothing per mouth. 2. Diabetic ketoacidosis. Continue IV fluid resuscitation, insulin drip has been discontinued and patient is on Lantus, scheduled Humalog and Humalog scale. 2. COPD without exacerbation. we will continue the patient on Pulmicort 1 mg nebulization twice every day, continue DuoNeb 3 mg nebulization 4 times every day. 3. CAD post left heart catheterization. Continue aspirin 81 mg once every day and pravastatin 20 mg at bedtime. 4. Diabetes mellitus type 2 uncontrolled . Currently on insulin drip, we will continue insulin drip for the next 24 hours and we'll transition to her Lantus and Humalog in the next week 4 hours. 5. Hypothyroidism. We will continue levothyroxin 125 g orally once every day. 6. RLS . Continue patient on Requip 2 mg orally bedtime along with Klonopin 0.5 mg at bedtime. 7. Degenerative disc disease of the cervical spine. Continue Flexeril 10 mg orally 3 times every day along with the gabapentin 100 mg orally 2 times every day [place] continue [place] as needed for pain. 8. Hyperlipidemia. Continue pravastatin 20 mg at bedtime. 9. Vitamin D deficiency. Hold vitamin D supplement for now. 10. DVT prophylaxis. Continue with Lovenox 40 mg subcutaneously every 24 hours. Bilateral knee-high GOGO hose. 11. GI prophylaxis. Continue Protonix 40 mg orally once every day. 12. Estimated length of stay 2 days. 13. Full code. Discharge plan: home with [facility]. Impression and plan of care have been directed as dictated by the signing physician. Geeta Monroe nurse practitioner acting as scribe for signing physician.
[2017-02-08 17:51] LABS: Glucose,Whole Blood 113 mg/dL (75-99)
[2017-02-08 20:41] LABS: Glucose,Whole Blood 112 mg/dL (75-99)
[2017-02-08] MEDS: DIAZEPAM 5 MG TAB PO SCH (20:57)
[2017-02-08] MEDS: CYCLOBENZAPRINE 10 MG TAB PO SCH (20:57)
[2017-02-08] MEDS: INSULIN GLARGINE 100 UNIT/ML 10 ML VIAL SQ SCH (20:58)
[2017-02-09] MEDS: HYDROcodone/APAP 10-325MG 1 EACH TAB PO PRN ×6 (03:11→23:47)
[2017-02-09] MEDS: LEVOTHYROXINE 125 MCG TAB PO SCH (06:36)
[2017-02-09] MEDS: ENOXAPARIN 40 MG/0.4 ML SYRINGE SQ SCH (07:15)
[2017-02-09] MEDS: PRAVASTATIN SODIUM 20 MG TAB PO SCH (07:15)
[2017-02-09] MEDS: PIPERACILLIN-TAZOBACTAM 3.375 GM in DEXTROSE/WATER 1 50ML.BAG IVPB SCH ×3 (07:15→23:43)
[2017-02-09] MEDS: ASPIRIN 81 MG CHEW PO SCH (07:15)
[2017-02-09] MEDS: GABAPENTIN 100 MG CAP PO SCH ×3 (07:15→20:43)
[2017-02-09] MEDS: metroNIDAZOLE-NS PMX 500 MG in SALINE 1 100ML.BAG IVPB SCH ×3 (07:16→23:43)
[2017-02-09 07:17] LABS: Glucose,Whole Blood 143 mg/dL (75-99)
[2017-02-09] MEDS: INSULIN LISPRO (humaLOG) 300 UNIT/3 ML VIAL SQ SCH ×7 (07:18→20:47)
--- NOTE | 2017-02-09 07:20 | PN ---
PROGRESS NOTE DATE OF SERVICE: 02/08/2017 REASON FOR FOLLOWUP: Possible ischemic colitis. INTERVAL HISTORY: The patient is afebrile. She is breathing comfortably. She is complaining of pain on the right side of the abdomen: No nausea, no vomiting. Did not have any bowel movement. PHYSICAL EXAMINATION: Blood pressure is 114/59 with a pulse of 86, temperature 97.4, she is 98% on room air. General description is middle-aged female lying in bed, in no distress. RESPIRATORY SYSTEM: Unlabored breathing. Clear to auscultation. HEART: S1, S2. Regular rate and rhythm. ABDOMEN: Soft, mildly tender on the right side. EXTREMITIES: No edema of the feet. LAB: Hemoglobin is 11.1, white count of 3.4, BUN of 5, creatinine 0.68. Blood culture has been negative. IMPRESSION: Patient with colitis with a question of possible ischemic colitis. Patient did have significant constipation, not relieved. Has been given suppository, of note may benefit from an enema for more aggressive management of underlying constipation. Keep the patient on Zosyn and Flagyl at this point. Continue supportive care. MMODL / IJN: [id number] /
[2017-02-09] MEDS: BUDESONIDE 1 MG/2 ML NEBU INHALATION SCH ×2 (07:24→20:09)
[2017-02-09] MEDS: IPRATROPIUM-ALBUTEROL 3 ML NEB INHALATION SCH ×4 (07:24→20:09)
[2017-02-09 09:33] LABS: CH 29.4; CHCM 33.3; HCT 39.7 % (34.0-46.0); HDW 2.77; HGB 13.3 gm/dL (11.4-16.0); MCH 29.7 pg (25.0-35.0); MCHC 33.4 g/dL (31.0-37.0); MCV 88.9 fL (80.0-100.0); Mean Platelet Volume 8.7; RBC 4.47 m/uL (3.80-5.40); RDW 15.9 % (11.5-15.5); WBC 6.5 k/uL (3.8-10.6)
--- NOTE | 2017-02-09 11:03 | P.PN ---
Subjective 66-year-old female being seen this morning patient states that she did have a small bowel movement last night Patient states that she has discomfort to the right lower quadrant after having a bowel movement. States no blood in the stool. Currently tolerating a full diet. Patient's currently being followed by surgical service at the request of the attending for abdominal pain felt to be due to acute cholecystitis. GI service also participating in the plan of care Objective - Vital Signs Vital signs: Vital Signs Temp 96.6 F L 02/09/17 07:00 Pulse 88 02/09/17 07:38 Resp 16 02/09/17 07:00 BP 120/59 02/09/17 07:00 Pulse Ox 95 02/09/17 07:00 Intake & Output 02/08/17 02/09/17 02/09/17 18:59 06:59 18:59 Output Total 0 Balance 0 Weight 74.2 kg Output: Stool 0 Other: Voiding Method Toilet Toilet # Voids 3 1 # Bowel Movements 1 1 - Exam Physical exam 66-year-old female resting in bed does not appear in any acute distress pleasant cooperative oriented 3 Lungs essentially clear adequate air movement on room air sats are 95% Heart S1-S2 audible and regular denying chest pain when questioning Abdomen soft not distended no facial grimacing with palpitation to the abdominal wall nontender bowel tones present states had one bowel movement last night with no nausea no vomiting tolerating diet Extremities no edema noted - Labs CBC & Chem 7: 02/09/17 08:30 02/09/17 11:25 Labs: Abnormal Lab Results - Last 24 Hours (Table) 02/08/17 02/08/17 02/08/17 Range/Units 12:44 17:49 20:39 RDW (11.5-15.5) % POC Glucose (mg/dL) 157 H 113 H 112 H (75-99) mg/dL 02/09/17 02/09/17 Range/Units 07:15 08:30 RDW 15.9 H (11.5-15.5) % POC Glucose (mg/dL) 143 H (75-99) mg/dL Microbiology - Last 24 Hours (Table) 02/06/17 16:47 Blood Culture - Preliminary Blood No Growth after 48 hours Assessment and Plan Plan: Impression Present on admission right lower abdominal pain suspect due to acute colitis Present on admission DKA blood sugar greater than 600 Chronic tobacco abuse Chronic COPD no evidence of an exacerbation Known coronary artery disease type 2 diabetes uncontrolled CAT scan abdomen pelvis suspect acute colitis possibly infectious or ischemia Colonoscopy in October 2016 per GI service no acute findings Echocardiogram left ventricular systolic function normal EF between 65 and 70% no evidence of pulmonary hypertension Plan Pain control Advanced to a low fiber diet From a surgical perspective patient is felt to be stable to be discharged home defer to the timing to medicine service In the outpatient setting patient will need to be scheduled for colonoscopy in 6 -8 weeks Continue with the GI &DVT prophylaxis Continue IV antibiotics Levaquin and Flagyl as ordered Will follow clinical course No acute surgical intervention warranted at this time We'll sign off and re-eval per clinical course The above impression and plan of care have been discussed and directed by signing physician. Rosaura Campbell nurse practitioner acting as scribe for signing physician.
--- NOTE | 2017-02-09 11:14 | P.PN ---
Subjective Principal diagnosis: colitis 2 hard small bowel movements yesterday after suppository. Walking hallway. Still reports bilateral lower abdominal pain. Tolerating full liquids. No nausea vomiting. Afebrile. Objective - Vital Signs Vital signs: Vital Signs Temp 96.6 F L 02/09/17 07:00 Pulse 88 02/09/17 07:38 Resp 16 02/09/17 07:00 BP 120/59 02/09/17 07:00 Pulse Ox 95 02/09/17 07:00 Intake & Output 02/08/17 02/09/17 02/09/17 18:59 06:59 18:59 Output Total 0 Balance 0 Weight 74.2 kg Output: Stool 0 Other: Voiding Method Toilet Toilet # Voids 3 1 1 # Bowel Movements 1 1 - Exam General appearance: The patient is alert, oriented, in no acute distress. HET: Head is normocephalic and atraumatic. Pupils are equal and reactive. Oropharynx is clear without lesions. Neck: Supple without lymphadenopathy. Trachea midline. Heart: S1 S2. Regular rate and rhythm. Lungs: No crackles or wheezes are heard. Abdomen: Soft, mild bilateral lower abdominal tenderness greater on right and left, nondistended with bowel sounds. No peritoneal signs. No palpable organomegaly or masses. Extremities: Normal skin color and turgor. No cyanosis, rash, ulceration, clubbing, or edema. Radial and pedal pulses are 2/4 bilaterally. Neurological: No focal deficits. Strength and sensation are grossly intact. - Labs CBC & Chem 7: 02/09/17 08:30 02/07/17 06:05 Labs: Abnormal Lab Results - Last 24 Hours (Table) 02/08/17 02/08/17 02/08/17 Range/Units 12:44 17:49 20:39 RDW (11.5-15.5) % POC Glucose (mg/dL) 157 H 113 H 112 H (75-99) mg/dL 02/09/17 02/09/17 Range/Units 07:15 08:30 RDW 15.9 H (11.5-15.5) % POC Glucose (mg/dL) 143 H (75-99) mg/dL Microbiology - Last 24 Hours (Table) 02/06/17 16:47 Blood Culture - Preliminary Blood No Growth after 48 hours Assessment and Plan (1) Colitis Narrative/Plan: Self-limiting infectious possible inflammatory possible ischemic Status: Acute Plan: 1. Stool softeners. 2. Diet per surgery. 3. Will follow as needed. 4. RTO 2-3 weeks. Assessment and plan of care discussed with Dr. Mcfarland
[2017-02-09] MEDS: SENNOSIDES-DOCUSATE SODIUM 1 EACH TAB PO SCH ×2 (11:18→20:45)
[2017-02-09 11:46] LABS: Glucose,Whole Blood 130 mg/dL (75-99)
[2017-02-09 12:25] LABS: ALT 16 U/L (9-52); AST 19 U/L (14-36); Alkaline Phosphatase 75 U/L (38-126); Anion Gap 8 mmol/L; Blood Urea Nitrogen 7 mg/dL (7-17); Calcium 8.3 mg/dL (8.4-10.2); Carbon Dioxide 24 mmol/L (22-30); Chloride 103 mmol/L (98-107); Glucose 115 mg/dL (74-99); Non-African American GFR(MDRD) >60 (>60 ml/min/1.73 sqM); Potassium 3.6 mmol/L (3.5-5.1); Sodium 135 mmol/L (137-145); Total Bilirubin 0.4 mg/dL (0.2-1.3); Total Protein 4.8 g/dL (6.3-8.2)
[2017-02-09] MEDS: BISACODYL 5 MG TABLET.DR PO SCH (12:35)
[2017-02-09] MEDS: LACTULOSE 20 GM/30 ML CUP PO SCH ×2 (12:35→20:44)
--- NOTE | 2017-02-09 14:31 | P.PN ---
Subjective This is a 66-year-old female in of Dr. Eugene with a previous medical history significant for a mild coronary artery disease involving the LAD 20-30% , LCx 20-30%, and ostial lesion of the diagonal branch of 40%, diabetes mellitus 2, chronic tobacco use and dependence with a chronic obstructive pulmonary disease, patient was brought into the emergency department at [facility] after she had an episode of the abdominal pain left sided associated with generalized weakness and patient was going to the bathroom yesterday and she had a syncopal episode, she had checked her blood glucose level was high patient ended up coming to the ER at [place] and she was found to have a diabetic ketoacidosis with a bicarb level of 8 her blood glucose levels were greater than 600 she ended up going for a computed tomography scan of the abdomen that did show significant colitis of the left lower quadrant as well as significant induration of the stomach at that time. Patient was started on IV antibiotic in the form of Levaquin 500 mg IV piggyback every 24 hours as well as Flagyl 500 mg IV piggyback every 8 hours, she was placed on insulin drip, she was admitted to the hospital for further evaluation and general surgery consultation was obtained as well as GI consultation. Her lactic acid was 1.5, she was placed on IV fluid resuscitation as well and the patient will have repeated lactic acid in the next 6 hours. 02/03: Echocardiogram revealed tachycardia greater than 100 bpm, EF 65-70%, mild aortic sclerosis, trace mitral regurgitation, trace tricuspid regurgitation, no pulmonary hypertension. Patient's blood sugar at 2300 was 96 but now she is back to 324. She was given Lantus 21 units last night and is currently on Humalog 7 units before each meal and scale. Lantus will be increased to 28 units and Humalog to 8 units with breakfast and lunch and 10 units at supper. Patient's abdomen is quite tender today for which x-rays ordered showing ileus. Dulcolax suppository ordered. 02/04: Patient states that she had a small bowel movement after suppository yesterday. She denies any nausea. Abdomen is softer but continues to be tender. CAT scan of the abdomen and pelvis with contrast showed progression of abdominal wall thickening from descending colon now involving significant portions of redundant sigmoid colon and rectum. Differential includes infectious, inflammatory and ischemic etiologies. No free or mesenteric air identified. She is followed by general surgeon and GI. Blood sugars are improved but remain in the 200s. 02/05: Patient states she has still not had a bowel movement and continues to have abdominal tenderness. Abdominal x-ray ordered which shows suspected partial distal colonic obstruction due to inflammatory change or colitis at the level of the sigmoid colon. Nursing to call this to general surgeon. Blood sugars are improved his Lantus was increased to 32 units last night. Sodium is at 132. 02/06: Patient was seen by Dr. Cook yesterday and plan is to continue conservative measures. She is currently on Levaquin and Flagyl and nothing by mouth status. Blood sugars are running 164-208. Consult with Dr. Coffey added. Patient states she has not had a bowel movement. She is not passing gas. She occasionally burps. She states her pain is about the same. 02/07: Dr. Cook has advised the liquid diet, oral vancomycin for possible C. difficile colitis and repeat CAT scan in 3-[address] improvement[address] Coffey has evaluated the patient and discontinued Levaquin with plan to continue Flagyl and zosyn. Patient continues to have abdominal pain but not worsening. No bowel movement. 02/08: Patient is tolerating clear liquid diet with no nausea or vomiting. She has not had a bowel movement, and no flatus. She is continued on IV Flagyl and Zosyn. Patient is followed by GI with recommendations for laxatives or suppository. Patient transferred to [facility] floor. 02/09: Patient had a Dulcolax suppository and had a bowel movement which was the consistency of large meatballs and very firm. She states she had right lower quadrant pain and tenderness which was worse at the time and she does continue to have pain. She states she was nauseated earlier today but now this is resolved. She denies any vomiting. She denies having any fever. Patient has been afebrile. She is also complaining of severe pain when she passes gas. We have added in lactulose, Dulcolax oral on top of Senokot. Repeat abdominal films tomorrow. Anticipate possible discharge by tomorrow. Objective - Vital Signs Vital signs: Vital Signs Temp 96.6 F L 02/09/17 07:00 Pulse 84 02/09/17 11:46 Resp 16 02/09/17 07:00 BP 120/59 02/09/17 07:00 Pulse Ox 95 02/09/17 07:00 Intake & Output 02/08/17 02/09/17 02/09/17 18:59 06:59 18:59 Output Total 0 Balance 0 Weight 74.2 kg Output: Stool 0 Other: Voiding Method Toilet Toilet # Voids 3 1 1 # Bowel Movements 1 1 - Exam General appearance: mild distress - EENT Eyes: anicteric sclerae, EOMI, PERRLA, no ptosis, no scleral icterus, normal appearance ENT: hearing grossly normal, NA/AT, normal oropharynx, no thrush Ears: bilateral: normal - Neck Neck: no lymphadenopathy, normal ROM, no rigidity, no stridor, no thyromegaly Carotids: bilateral: upstroke normal Thyroid: bilateral: normal size - Respiratory Respiratory: bilateral: diminished, negative: dullness, rales, rhonchi, wheezing , prolonged expiration, prolonged inspiration - Cardiovascular Rhythm: regular Heart sounds: normal: S1, S2 Abnormal Heart Sounds: systolic murmur, no S3 Gallop, no S4 Gallop, no click - Gastrointestinal General gastrointestinal: normal bowel sounds, soft, tenderness, no umbilical hernia, no ventral hernia Localized gastrointestinal: tender: LLQ - Integumentary Integumentary: normal, normal turgor - Neurologic Neurologic: CNII-XII intact - Musculoskeletal Musculoskeletal: generalized weakness, strength equal bilaterally - Psychiatric Psychiatric: A&O x's 3, appropriate affect, intact judgment & insight - Labs CBC & Chem 7: 02/09/17 08:30 02/09/17 11:25 Labs: Abnormal Lab Results - Last 24 Hours (Table) 02/08/17 02/08/17 02/08/17 Range/Units 12:44 17:49 20:39 RDW (11.5-15.5) % POC Glucose (mg/dL) 157 H 113 H 112 H (75-99) mg/dL 02/09/17 02/09/17 02/09/17 Range/Units 07:15 08:30 11:44 RDW 15.9 H (11.5-15.5) % POC Glucose (mg/dL) 143 H 130 H (75-99) mg/dL Microbiology - Last 24 Hours (Table) 02/06/17 16:47 Blood Culture - Preliminary Blood No Growth after 48 hours Assessment and Plan Plan: 1. Acute colitis possibly infectious, possible ischemic colitis with suspected partial distal colonic obstruction. Continue Levaquin 500 mg piggyback every 24 hours as well as Flagyl 500 mg piggyback every 8 hours, GI consultation from Dr. Mcfarland patient did have a colonoscopy in October [address] Hammer that was totally normal. It did show small polyp that was benign. Full liquid diet to be advanced to low fiber for supper. 2. Diabetic ketoacidosis. Continue IV fluid resuscitation, insulin drip has been discontinued and patient is on Lantus, scheduled Humalog and Humalog scale. 2. COPD without exacerbation. we will continue the patient on Pulmicort 1 mg nebulization twice every day, continue DuoNeb 3 mg nebulization 4 times every day. 3. CAD post left heart catheterization. Continue aspirin 81 mg once every day and pravastatin 20 mg at bedtime. 4. Diabetes mellitus type 2 uncontrolled . Currently on insulin drip, we will continue insulin drip for the next 24 hours and we'll transition to her Lantus and Humalog in the next week 4 hours. 5. Hypothyroidism. We will continue levothyroxin 125 g orally once every day. 6. RLS . Continue patient on Requip 2 mg orally bedtime along with Klonopin 0.5 mg at bedtime. 7. Degenerative disc disease of the cervical spine. Continue Flexeril 10 mg orally 3 times every day along with the gabapentin 100 mg orally 2 times every day [place] continue [place] as needed for pain. 8. Hyperlipidemia. Continue pravastatin 20 mg at bedtime. 9. Vitamin D deficiency. Hold vitamin D supplement for now. 10. DVT prophylaxis. Continue with Lovenox 40 mg subcutaneously every 24 hours. Bilateral knee-high GOGO hose. 11. GI prophylaxis. Continue Protonix 40 mg orally once every day. 12. Estimated length of stay 2 days. 13. Full code. Discharge plan: home with [facility]. Impression and plan of care have been directed as dictated by the signing physician. Geeta Monroe nurse practitioner acting as scribe for signing physician.
[2017-02-09 16:59] LABS: Glucose,Whole Blood 111 mg/dL (75-99)
[2017-02-09] MEDS: CYCLOBENZAPRINE 10 MG TAB PO SCH (20:43)
[2017-02-09] MEDS: INSULIN GLARGINE 100 UNIT/ML 10 ML VIAL SQ SCH (20:47)
[2017-02-09] MEDS: DIAZEPAM 5 MG TAB PO SCH (20:47)
[2017-02-09] MEDS: METOCLOPRAMIDE 5 MG/ML 2 ML VIAL IVP SCH (20:56)
[2017-02-09 21:25] LABS: Glucose,Whole Blood 53 mg/dL (75-99)
[2017-02-09 21:25] LABS: Glucose,Whole Blood 65 mg/dL (75-99)
[2017-02-09 21:35] LABS: Glucose,Whole Blood 109 mg/dL (75-99)
[2017-02-10] MEDS: METOCLOPRAMIDE 5 MG/ML 2 ML VIAL IVP SCH ×4 (03:14→21:12)
[2017-02-10] MEDS: HYDROcodone/APAP 10-325MG 1 EACH TAB PO PRN ×4 (03:46→17:28)
[2017-02-10] MEDS: LEVOTHYROXINE 125 MCG TAB PO SCH (06:22)
[2017-02-10] MEDS: IPRATROPIUM-ALBUTEROL 3 ML NEB INHALATION SCH ×4 (07:14→19:54)
[2017-02-10] MEDS: BUDESONIDE 1 MG/2 ML NEBU INHALATION SCH ×2 (07:14→19:54)
[2017-02-10 07:27] LABS: Glucose,Whole Blood 120 mg/dL (75-99)
[2017-02-10] MEDS: ENOXAPARIN 40 MG/0.4 ML SYRINGE SQ SCH (08:22)
[2017-02-10] MEDS: GABAPENTIN 100 MG CAP PO SCH ×3 (08:22→22:09)
[2017-02-10] MEDS: ASPIRIN 81 MG CHEW PO SCH (08:22)
[2017-02-10] MEDS: LACTULOSE 20 GM/30 ML CUP PO SCH ×2 (08:22→22:01)
[2017-02-10] MEDS: SENNOSIDES-DOCUSATE SODIUM 1 EACH TAB PO SCH ×2 (08:22→22:01)
[2017-02-10] MEDS: metroNIDAZOLE-NS PMX 500 MG in SALINE 1 100ML.BAG IVPB SCH ×2 (08:23→15:16)
[2017-02-10] MEDS: INSULIN LISPRO (humaLOG) 300 UNIT/3 ML VIAL SQ SCH ×7 (08:25→22:07)
[2017-02-10 08:27] LABS: Anisocytosis Slight; CH 30.2; CHCM 33.1; HCT 36.3 % (34.0-46.0); HDW 2.81; HGB 11.5 gm/dL (11.4-16.0); MCH 29.2 pg (25.0-35.0); MCHC 31.7 g/dL (31.0-37.0); MCV 92.2 fL (80.0-100.0); Mean Platelet Volume 7.8; RBC 3.94 m/uL (3.80-5.40); RDW 16.8 % (11.5-15.5)
[2017-02-10] MEDS: PRAVASTATIN SODIUM 20 MG TAB PO SCH (08:35)
[2017-02-10] MEDS: BISACODYL 5 MG TABLET.DR PO SCH (08:36)
[2017-02-10 08:40] LABS: ALT 19 U/L (9-52); AST 19 U/L (14-36); Alkaline Phosphatase 93 U/L (38-126); Anion Gap 6 mmol/L; Blood Urea Nitrogen 7 mg/dL (7-17); Calcium 8.8 mg/dL (8.4-10.2); Carbon Dioxide 24 mmol/L (22-30); Chloride 105 mmol/L (98-107); Glucose 150 mg/dL (74-99); Non-African American GFR(MDRD) >60 (>60 ml/min/1.73 sqM); Potassium 4.3 mmol/L (3.5-5.1); Sodium 135 mmol/L (137-145); Total Bilirubin 0.5 mg/dL (0.2-1.3); Total Protein 4.7 g/dL (6.3-8.2)
--- NOTE | 2017-02-10 09:02 | XR ---
EXAMINATION TYPE: XR abdomen 2V DATE OF EXAM: 02/10/2017 COMPARISON: 02/05/2017 HISTORY: Abdominal distention TECHNIQUE: One view abdominal series FINDINGS: The osseous structures are intact. There is markedly dilated bowel loops with air-fluid levels. Chronic appearing deformity of the pelvis seen with arthropathy of the hips and hypertrophic change o f the spine. Contrast within the bowel noted. Left lower lobe infiltrate and small effusion. IMPRESSION: 1. Mild progression in the marked distention of the bowel suggestive of obstruction or severe ileus. 2. Left lower lobe infiltrate and small effusion
[2017-02-10] MEDS: PIPERACILLIN-TAZOBACTAM 3.375 GM in DEXTROSE/WATER 1 50ML.BAG IVPB SCH ×2 (09:45→17:24)
--- NOTE | 2017-02-10 10:47 | PN ---
PROGRESS NOTE DATE OF SERVICE: 02/09/2017 REASON FOR FOLLOWUP: Possible ischemic colitis. INTERVAL HISTORY: The patient is afebrile. She has been breathing comfortably. She has been complaining of abdominal pain. She did have a small bowel movement yesterday with no blood or mucus in it. No chest pain, shortness of breath or cough. PHYSICAL EXAMINATION: On examination, blood pressure 139/72 with a pulse of 88, temperature 97.6. She is 99% on room air. General description is a middle-aged female up in the room in no distress. RESPIRATORY SYSTEM: Unlabored breathing. Clear to auscultation anteriorly. HEART: S1, S2. Regular rate and rhythm. ABDOMEN: Soft. Minimal tenderness. No guarding or rigidity. LABS: White count of 6.5 with a BUN of 7, creatinine 0.71. Blood culture has been negative. DIAGNOSTIC IMPRESSION AND PLAN: Patient with colitis with a question of possible ischemic, clinically doubt infectious. Continue medication for relief of her constipation. Keeping the patient on Zosyn and the Flagyl. Continue supportive care. MMODL / IJN: [id number] /
[2017-02-10] MEDS ORDERED: BISACODYL 10 MG SUPP RECTAL STA (11:19)
[2017-02-10 12:08] LABS: Glucose,Whole Blood 238 mg/dL (75-99)
[2017-02-10] MEDS ORDERED: RX INFO: IV CONTRAST WAS GIVEN 1 EACH MISC MISCELLANE PRN (13:46)
--- NOTE | 2017-02-10 13:57 | P.PN ---
Subjective 66-year-old female being seen. Patient was up to the bathroom had a large brown soft stool this afternoon. Patient was noted to have tolerated a low fiber diet. There's been no reports of nausea vomiting. Patient continues to report having left lower quadrant abdominal pain with bowel movements. Abdominal x-ray obtained this morning show mild progression in the marked distention of the bowel suggestive of an obstruction or severe ileus. Abdomen is noted to be soft not distended bowel tones present Objective - Vital Signs Vital signs: Vital Signs Temp 96.7 F L 02/10/17 07:00 Pulse 90 02/10/17 11:35 Resp 16 02/10/17 07:00 BP 126/67 02/10/17 07:00 Pulse Ox 95 02/10/17 07:00 Intake & Output 02/09/17 02/10/17 02/10/17 18:59 06:59 18:59 Other: Voiding Method Toilet # Voids 3 2 - Exam Physical exam 66-year-old female up ambulating in the flood this afternoon no acute distress pleasant cooperative oriented 3 Lungs essentially clear adequate air movement on room air sats are 95% Heart S1-S2 audible and regular denying chest pain when questioning Abdomen soft not distended no facial grimacing with palpitation to the abdominal wall nontender bowel tones present noted patient had a large soft brown stool this afternoon. Patient states with bowel movement does have pain in the left lower quadrant with no nausea no vomiting tolerating diet Extremities no edema noted - Labs CBC & Chem 7: 02/10/17 07:53 02/10/17 07:53 Labs: Abnormal Lab Results - Last 24 Hours (Table) 02/09/17 02/09/17 02/09/17 Range/Units 16:55 20:46 21:07 RDW (11.5-15.5) % Sodium (137-145) mmol/L Glucose (74-99) mg/dL POC Glucose (mg/dL) 111 H 53 L 65 L (75-99) mg/dL Total Protein (6.3-8.2) g/dL Albumin (3.5-5.0) g/dL 02/09/17 02/10/17 02/10/17 Range/Units 21:33 07:24 07:53 RDW 16.8 H (11.5-15.5) % Sodium (137-145) mmol/L Glucose (74-99) mg/dL POC Glucose (mg/dL) 109 H 120 H (75-99) mg/dL Total Protein (6.3-8.2) g/dL Albumin (3.5-5.0) g/dL 02/10/17 02/10/17 Range/Units 07:53 12:06 RDW (11.5-15.5) % Sodium 135 L (137-145) mmol/L Glucose 150 H (74-99) mg/dL POC Glucose (mg/dL) 238 H (75-99) mg/dL Total Protein 4.7 L (6.3-8.2) g/dL Albumin 2.6 L (3.5-5.0) g/dL Microbiology - Last 24 Hours (Table) 02/06/17 16:47 Blood Culture - Preliminary Blood No Growth after 72 hours Assessment and Plan Plan: Impression Present on admission right lower abdominal pain suspect due to acute colitis possible infectious, possible ischemic colitis with suspected partial distal colonic obstruction Present on admission DKA blood sugar greater than 600 Chronic tobacco abuse Chronic COPD no evidence of an exacerbation Known coronary artery disease type 2 diabetes uncontrolled CAT scan abdomen pelvis suspect acute colitis possibly infectious or ischemia Colonoscopy in October 2016 per GI service no acute findings Echocardiogram left ventricular systolic function normal EF between 65 and 70% no evidence of pulmonary hypertension Plan Pain control Advanced to a low fiber diet We'll repeat a CAT scan abdomen and pelvis with oral and IV contrast follow up on results In the outpatient setting patient will need to be scheduled for colonoscopy in 6 -8 weeks Continue with the GI &DVT prophylaxis Continue IV antibiotics Levaquin and Flagyl as ordered Will follow clinical course No acute surgical intervention warranted at this time Continue bowel regime The above impression and plan of care have been discussed and directed by signing physician. Rosaura Campbell nurse practitioner acting as scribe for signing physician.
[2017-02-10] MEDS: IOHEXOL 350 MG/ML 25 ML BOTTLE (ORAL USE) PO PRN ×2 (14:13→15:12)
--- NOTE | 2017-02-10 15:00 | P.PN ---
Subjective This is a 66-year-old female in of Dr. Eugene with a previous medical history significant for a mild coronary artery disease involving the LAD 20-30% , LCx 20-30%, and ostial lesion of the diagonal branch of 40%, diabetes mellitus 2, chronic tobacco use and dependence with a chronic obstructive pulmonary disease, patient was brought into the emergency department at [facility] after she had an episode of the abdominal pain left sided associated with generalized weakness and patient was going to the bathroom yesterday and she had a syncopal episode, she had checked her blood glucose level was high patient ended up coming to the ER at [place] and she was found to have a diabetic ketoacidosis with a bicarb level of 8 her blood glucose levels were greater than 600 she ended up going for a computed tomography scan of the abdomen that did show significant colitis of the left lower quadrant as well as significant induration of the stomach at that time. Patient was started on IV antibiotic in the form of Levaquin 500 mg IV piggyback every 24 hours as well as Flagyl 500 mg IV piggyback every 8 hours, she was placed on insulin drip, she was admitted to the hospital for further evaluation and general surgery consultation was obtained as well as GI consultation. Her lactic acid was 1.5, she was placed on IV fluid resuscitation as well and the patient will have repeated lactic acid in the next 6 hours. 02/03: Echocardiogram revealed tachycardia greater than 100 bpm, EF 65-70%, mild aortic sclerosis, trace mitral regurgitation, trace tricuspid regurgitation, no pulmonary hypertension. Patient's blood sugar at 2300 was 96 but now she is back to 324. She was given Lantus 21 units last night and is currently on Humalog 7 units before each meal and scale. Lantus will be increased to 28 units and Humalog to 8 units with breakfast and lunch and 10 units at supper. Patient's abdomen is quite tender today for which x-rays ordered showing ileus. Dulcolax suppository ordered. 02/04: Patient states that she had a small bowel movement after suppository yesterday. She denies any nausea. Abdomen is softer but continues to be tender. CAT scan of the abdomen and pelvis with contrast showed progression of abdominal wall thickening from descending colon now involving significant portions of redundant sigmoid colon and rectum. Differential includes infectious, inflammatory and ischemic etiologies. No free or mesenteric air identified. She is followed by general surgeon and GI. Blood sugars are improved but remain in the 200s. 02/05: Patient states she has still not had a bowel movement and continues to have abdominal tenderness. Abdominal x-ray ordered which shows suspected partial distal colonic obstruction due to inflammatory change or colitis at the level of the sigmoid colon. Nursing to call this to general surgeon. Blood sugars are improved his Lantus was increased to 32 units last night. Sodium is at 132. 02/06: Patient was seen by Dr. Cook yesterday and plan is to continue conservative measures. She is currently on Levaquin and Flagyl and nothing by mouth status. Blood sugars are running 164-208. Consult with Dr. Coffey added. Patient states she has not had a bowel movement. She is not passing gas. She occasionally burps. She states her pain is about the same. 02/07: Dr. Cook has advised the liquid diet, oral vancomycin for possible C. difficile colitis and repeat CAT scan in 3-[address] Coffey has evaluated the patient and discontinued Levaquin with plan to continue Flagyl and zosyn. Patient continues to have abdominal pain but not worsening. No bowel movement. 02/08: Patient is tolerating clear liquid diet with no nausea or vomiting. She has not had a bowel movement, and no flatus. She is continued on IV Flagyl and Zosyn. Patient is followed by GI with recommendations for laxatives or suppository. Patient transferred to [facility] floor. 02/09: Patient had a Dulcolax suppository and had a bowel movement which was the consistency of large meatballs and very firm. She states she had right lower quadrant pain and tenderness which was worse at the time and she does continue to have pain. She states she was nauseated earlier today but now this is resolved. She denies any vomiting. She denies having any fever. Patient has been afebrile. She is also complaining of severe pain when she passes gas. We have added in lactulose, Dulcolax oral on top of Senokot. Repeat abdominal films tomorrow. Anticipate possible discharge by tomorrow. 02/10: Patient had a small soft bowel movement and continues to have significant pain in the right lower quadrant. O'clock suppository ordered today and she did have a large bowel movement following this. Patient has been encouraged to increase her ambulation in the hallway. She did vomit once last evening. Blood sugar was low at 53 and Lantus was held today. She is tolerating a low fiber diet. Repeat CAT scan of the abdomen has been ordered by general surgeon. Objective - Vital Signs Vital signs: Vital Signs Temp 96.7 F L 02/10/17 07:00 Pulse 80 02/10/17 07:25 Resp 16 02/10/17 07:00 BP 126/67 02/10/17 07:00 Pulse Ox 95 02/10/17 07:00 Intake & Output 02/09/17 02/10/17 02/10/17 18:59 06:59 18:59 Other: Voiding Method Toilet # Voids 3 2 - Exam General appearance: mild distress - EENT Eyes: anicteric sclerae, EOMI, PERRLA, no ptosis, no scleral icterus, normal appearance ENT: hearing grossly normal, NA/AT, normal oropharynx, no thrush Ears: bilateral: normal - Neck Neck: no lymphadenopathy, normal ROM, no rigidity, no stridor, no thyromegaly Carotids: bilateral: upstroke normal Thyroid: bilateral: normal size - Respiratory Respiratory: bilateral: diminished, negative: dullness, rales, rhonchi, wheezing , prolonged expiration, prolonged inspiration - Cardiovascular Rhythm: regular Heart sounds: normal: S1, S2 Abnormal Heart Sounds: systolic murmur, no S3 Gallop, no S4 Gallop, no click - Gastrointestinal General gastrointestinal: normal bowel sounds, soft, tenderness, no umbilical hernia, no ventral hernia Localized gastrointestinal: tender: LLQ - Integumentary Integumentary: normal, normal turgor - Neurologic Neurologic: CNII-XII intact - Musculoskeletal Musculoskeletal: generalized weakness, strength equal bilaterally - Psychiatric Psychiatric: A&O x's 3, appropriate affect, intact judgment & insight - Labs CBC & Chem 7: 02/10/17 07:53 02/10/17 07:53 Labs: Abnormal Lab Results - Last 24 Hours (Table) 02/09/17 02/09/17 02/09/17 Range/Units 11:25 11:44 16:55 RDW (11.5-15.5) % Sodium 135 L (137-145) mmol/L Glucose 115 H (74-99) mg/dL POC Glucose (mg/dL) 130 H 111 H (75-99) mg/dL Calcium 8.3 L (8.4-10.2) mg/dL Total Protein 4.8 L (6.3-8.2) g/dL Albumin 2.5 L (3.5-5.0) g/dL 02/09/17 02/09/17 02/09/17 Range/Units 20:46 21:07 21:33 RDW (11.5-15.5) % Sodium (137-145) mmol/L Glucose (74-99) mg/dL POC Glucose (mg/dL) 53 L 65 L 109 H (75-99) mg/dL Calcium (8.4-10.2) mg/dL Total Protein (6.3-8.2) g/dL Albumin (3.5-5.0) g/dL 02/10/17 02/10/17 02/10/17 Range/Units 07:24 07:53 07:53 RDW 16.8 H (11.5-15.5) % Sodium 135 L (137-145) mmol/L Glucose 150 H (74-99) mg/dL POC Glucose (mg/dL) 120 H (75-99) mg/dL Calcium (8.4-10.2) mg/dL Total Protein 4.7 L (6.3-8.2) g/dL Albumin 2.6 L (3.5-5.0) g/dL Microbiology - Last 24 Hours (Table) 02/06/17 16:47 Blood Culture - Preliminary Blood No Growth after 72 hours Assessment and Plan Plan: 1. Acute colitis possibly infectious, possible ischemic colitis with suspected partial distal colonic obstruction. Continue Levaquin 500 mg piggyback every 24 hours as well as Flagyl 500 mg piggyback every 8 hours, GI consultation from Dr. Mcfarland patient did have a colonoscopy in October [address] Hammer that was totally normal. It did show small polyp that was benign. Low fiber diet. Repeat CAT scan of the abdomen and pelvis. 2. Diabetic ketoacidosis. Continue IV fluid resuscitation, insulin drip has been discontinued and patient is on Lantus, scheduled Humalog and Humalog scale. 3. COPD without exacerbation. we will continue the patient on Pulmicort 1 mg nebulization twice every day, continue DuoNeb 3 mg nebulization 4 times every day. 4. CAD post left heart catheterization. Continue aspirin 81 mg once every day and pravastatin 20 mg at bedtime. 5. Diabetes mellitus type 2 uncontrolled . Currently on insulin drip, we will continue insulin drip for the next 24 hours and we'll transition to her Lantus and Humalog in the next week 4 hours. 6. Hypothyroidism. We will continue levothyroxin 125 g orally once every day. 7. RLS . Continue patient on Requip 2 mg orally bedtime along with Klonopin 0.5 mg at bedtime. 8. Degenerative disc disease of the cervical spine. Continue Flexeril 10 mg orally 3 times every day along with the gabapentin 100 mg orally 2 times every day AR continue [place] as needed for pain. 9. Hyperlipidemia. Continue pravastatin 20 mg at bedtime. 10. Vitamin D deficiency. Hold vitamin D supplement for now. 11. DVT prophylaxis. Continue with Lovenox 40 mg subcutaneously every 24 hours. Bilateral knee-high GOGO hose. 12. GI prophylaxis. Continue Protonix 40 mg orally once every day. 13. Estimated length of stay 2 days. 14. Full code. Discharge plan: home with [facility]. Impression and plan of care have been directed as dictated by the signing physician. Geeta [facility] nurse practitioner acting as scribe for signing physician.
--- NOTE | 2017-02-10 16:42 | CT ---
EXAMINATION TYPE: CT abdomen pelvis w con DATE OF EXAM: 02/10/2017 HISTORY: abdominal pain, constipation, bowel obstruction CT DLP: 1029.8mGycm Automated Exposure Control for Dose Reduction was Utilized. CONTRAST: CT scan of the abdomen and pelvis is performed with IV Contrast, patient injected with 100 mL of Omni paque 300. COMPARISON: CT abdomen and pelvis from 6 days ago. FINDINGS: LUNG BASES: There is persistent tiny left-sided pleural effusion and left basilar atelectasis. LIVER/GB: No significant abnormality is appreciated. PANCREAS: Some generalized atrophy of pancreas is redemonstrated. SPLEEN: No significant abnormality is seen. ADRENALS: No significant abnormality is seen. KIDNEYS: No significant abnormality is seen. BOWEL: There is slightly more focal wall thickening of the posterior gastric fundus near axial image 15, this appeared within normal limits on recent CT, suspected as the osseous benign. Contrast is see n in nondistended stomach as well as duodenal sweep and small bowel loops throughout the left abdomen . There is persistent more prominent fluid filled small bowel loops in the right abdomen. There is le ss dense contrast in prominent colon with multiple air-fluid levels. Contrast extends to level of rec sonia. Sigmoid colon is redundant. There is interval improvement in abnormal inflammatory change in the sigmoid colon. UTERUS/ADNEXA: Uterus is surgically absent. LYMPH NODES: No greater than 1cm abdominal or pelvic lymph nodes are appreciated. OSSEOUS STRUCTURES: No significant abnormality is seen. OTHER: No significant additional abnormality is seen. IMPRESSION: Interval improvement or resolution in inflammatory change at level of sigmoid colon. Ther e is overall prominent distal small bowel and diffuse colonic prominence with air-fluid levels. Favor diffuse ileus pattern currently.
[2017-02-10 17:35] LABS: Glucose,Whole Blood 57 mg/dL (75-99)
[2017-02-10 17:35] LABS: Glucose,Whole Blood 78 mg/dL (75-99)
[2017-02-10] MEDS ORDERED: METOCLOPRAMIDE 5 MG/ML 2 ML VIAL IVP SCH (20:00)
[2017-02-10 20:34] LABS: Glucose,Whole Blood 208 mg/dL (75-99)
[2017-02-10] MEDS: DIAZEPAM 5 MG TAB PO SCH (21:10)
[2017-02-10] MEDS: CYCLOBENZAPRINE 10 MG TAB PO SCH (21:10)
[2017-02-10] MEDS: INSULIN GLARGINE 100 UNIT/ML 10 ML VIAL SQ SCH (22:07)
[2017-02-11] MEDS: HYDROcodone/APAP 10-325MG 1 EACH TAB PO PRN ×3 (01:37→15:29)
[2017-02-11] MEDS: PIPERACILLIN-TAZOBACTAM 3.375 GM in DEXTROSE/WATER 1 50ML.BAG IVPB SCH ×4 (01:38→23:24)
[2017-02-11] MEDS: metroNIDAZOLE-NS PMX 500 MG in SALINE 1 100ML.BAG IVPB SCH ×3 (02:27→16:17)
[2017-02-11] MEDS: METOCLOPRAMIDE 5 MG/ML 2 ML VIAL IVP SCH ×4 (04:33→21:38)
[2017-02-11] MEDS: LEVOTHYROXINE 125 MCG TAB PO SCH (06:17)
[2017-02-11 07:30] LABS: Glucose,Whole Blood 95 mg/dL (75-99)
[2017-02-11] MEDS: INSULIN LISPRO (humaLOG) 300 UNIT/3 ML VIAL SQ SCH ×4 (08:20→21:10)
[2017-02-11] MEDS: ASPIRIN 81 MG CHEW PO SCH (08:21)
[2017-02-11] MEDS: ENOXAPARIN 40 MG/0.4 ML SYRINGE SQ SCH (08:22)
[2017-02-11] MEDS: LACTULOSE 20 GM/30 ML CUP PO SCH ×2 (08:22→22:17)
[2017-02-11] MEDS: GABAPENTIN 100 MG CAP PO SCH ×3 (08:22→21:38)
[2017-02-11] MEDS: BISACODYL 5 MG TABLET.DR PO SCH (08:22)
[2017-02-11] MEDS: SENNOSIDES-DOCUSATE SODIUM 1 EACH TAB PO SCH ×2 (08:23→22:18)
[2017-02-11] MEDS: PRAVASTATIN SODIUM 20 MG TAB PO SCH (08:23)
[2017-02-11] MEDS: BUDESONIDE 1 MG/2 ML NEBU INHALATION SCH ×2 (08:35→20:07)
[2017-02-11] MEDS: IPRATROPIUM-ALBUTEROL 3 ML NEB INHALATION SCH ×4 (08:35→20:08)
[2017-02-11 08:56] LABS: Basophils % (A) 1 %; CH 28.8; CHCM 31.9; Eosinophils # (A) 0.2 k/uL (0-0.7); Eosinophils % (A) 4 %; HCT 36.2 % (34.0-46.0); HDW 2.65; HGB 11.6 gm/dL (11.4-16.0); Luc # (Auto) 0.12; Luc % (Auto) 3; Lymphocytes % (A) 22 %; MCH 29.1 pg (25.0-35.0); MCV 91.1 fL (80.0-100.0); Mean Platelet Volume 7.2; Monocytes # (A) 0.3 k/uL (0-1.0); Monocytes % (A) 6 %; Neutrophils % (A) 66 %; RBC 3.98 m/uL (3.80-5.40); RDW 15.9 % (11.5-15.5); WBC 4.6 k/uL (3.8-10.6); WBC (Perox) 4.72
--- NOTE | 2017-02-11 09:12 | PN ---
PROGRESS NOTE DATE OF SERVICE: 02/10/2017. REASON FOR FOLLOW UP: Colitis with a question of ischemia. INTERVAL HISTORY: The patient is afebrile. He is breathing comfortably. Still complaining of pain in abdominal area. did not have any bowel movement for which the patient being on multiple laxatives, no urinary symptoms. EXAMINATION: Blood pressure 98/54 with a pulse of 93, temperature 97.8, she is 93% on room air. General description is a middle aged female up in the bed in no distress. RESPIRATORY SYSTEM: Unlabored breathing. Clear to auscultation anteriorly. HEART: S1, S2. Regular rate and rhythm. ABDOMEN: Soft, no tenderness. LABS: Hemoglobin 11.5, white count 5.0 with a BUN of 7, creatinine 0.74, blood cultures have been negative. DIAGNOSTIC IMPRESSION AND PLAN: Patient with possible colitis with question of possible ischemia and she was switched over to Zosyn and did have a repeat CT scan which did show interval improvement or resolution inflammtory changes at the level of the sigmoid colon. Still some component of diffuse ileus. She is currently on Zosyn and Flagyl. The patient continue therapy with oral Augmentin therapy short course. Continue supportive care. MMODL / IJN: [id number] /
[2017-02-11 09:18] LABS: ALT 22 U/L (9-52); AST 18 U/L (14-36); Alkaline Phosphatase 93 U/L (38-126); Anion Gap 7 mmol/L; Blood Urea Nitrogen 9 mg/dL (7-17); Calcium 8.8 mg/dL (8.4-10.2); Carbon Dioxide 28 mmol/L (22-30); Chloride 103 mmol/L (98-107); Glucose 98 mg/dL (74-99); Non-African American GFR(MDRD) >60 (>60 ml/min/1.73 sqM); Potassium 4.2 mmol/L (3.5-5.1); Sodium 138 mmol/L (137-145); Total Bilirubin 0.5 mg/dL (0.2-1.3); Total Protein 4.8 g/dL (6.3-8.2)
--- NOTE | 2017-02-11 09:56 | P.PN ---
Subjective 66-year-old female being seen on rounds this morning and a follow-up visit. Patient's CAT scan of the abdomen and pelvis was reviewed by surgical service. In summary it showed interval improvement or resolution of inflammatory changes at the level of the sigmoid colon. Patient this morning is sitting up in bed taking a diet no reports of nausea vomiting. Abdomen is soft. Patient states she did have a bowel movement this morning continues to report having left lower quadrant pain with bowel movements states urinating no difficulty Objective - Vital Signs Vital signs: Vital Signs Temp 96.0 F L 02/11/17 07:00 Pulse 84 02/11/17 08:49 Resp 16 02/11/17 07:00 BP 118/56 02/11/17 07:00 Pulse Ox 96 02/11/17 07:00 Intake & Output 02/10/17 02/11/17 02/11/17 18:59 06:59 18:59 Weight 74.2 kg Other: Voiding Method Toilet # Voids 3 1 # Bowel Movements 1 - Exam Physical exam 66-year-old female sitting up in bed taking a diet reports no nausea vomiting states ambulated in the hallway no difficulty no acute distress pleasant cooperative oriented 3 Lungs essentially clear adequate air movement on room air sats are 95% Heart S1-S2 audible and regular denying chest pain when questioning Abdomen soft not distended no facial grimacing with palpitation to the abdominal wall nontender bowel tones present Patient states with bowel movement does have pain in the left lower quadrant with no nausea no vomiting tolerating diet states left lower quadrant pain improving Extremities no edema noted - Labs CBC & Chem 7: 02/11/17 08:37 02/11/17 08:37 Labs: Abnormal Lab Results - Last 24 Hours (Table) 02/10/17 02/10/17 02/10/17 Range/Units 12:06 17:14 20:32 RDW (11.5-15.5) % POC Glucose (mg/dL) 238 H 57 L 208 H (75-99) mg/dL Total Protein (6.3-8.2) g/dL Albumin (3.5-5.0) g/dL 02/11/17 02/11/17 Range/Units 08:37 08:37 RDW 15.9 H (11.5-15.5) % POC Glucose (mg/dL) (75-99) mg/dL Total Protein 4.8 L (6.3-8.2) g/dL Albumin 2.6 L (3.5-5.0) g/dL Microbiology - Last 24 Hours (Table) 02/06/17 16:47 Blood Culture - Preliminary Blood No Growth after 96 hours Assessment and Plan Plan: Impression Present on admission right lower abdominal pain suspect due to acute colitis possible infectious, possible ischemic colitis with suspected partial distal colonic obstruction Present on admission DKA blood sugar greater than 600 Chronic tobacco abuse Chronic COPD no evidence of an exacerbation Known coronary artery disease type 2 diabetes uncontrolled CAT scan abdomen pelvis suspect acute colitis possibly infectious or ischemia Colonoscopy in October 2016 per GI service no acute findings Echocardiogram left ventricular systolic function normal EF between 65 and 70% no evidence of pulmonary hypertension Repeat CAT scan of the abdomen and pelvis with contrast done on February 10 show interval improvement or resolution inflammatory changes at the level of the sigmoid colon with some component of diffuse ileus improving Plan Pain control Advanced to a low fiber diet In the outpatient setting patient will need to be scheduled for colonoscopy in 6 -8 weeks with GI service Continue with the GI &DVT prophylaxis Continue IV antibiotics Levaquin and Flagyl as ordered antibiotics per infectious disease Dr. Coffey No acute surgical intervention warranted at this time Continue bowel regime No further surgical recommendations at this time from a surgical perspective patient is felt to be appropriate to be discharged defer to the timing to medicine service The above impression and plan of care have been discussed and directed by signing physician. Rosaura Campbell nurse practitioner acting as scribe for signing physician.
[2017-02-11 11:28] LABS: Glucose,Whole Blood 301 mg/dL (75-99)
[2017-02-11 17:19] LABS: Glucose,Whole Blood 211 mg/dL (75-99)
[2017-02-11] MEDS ORDERED: GLIMEPIRIDE 4 MG TAB PO SCH (17:30)
--- NOTE | 2017-02-11 17:33 | P.PN ---
Subjective This is a 66-year-old female in of Dr. uEgene with a previous medical history significant for a mild coronary artery disease involving the LAD 20-30% , LCx 20-30%, and ostial lesion of the diagonal branch of 40%, diabetes mellitus 2, chronic tobacco use and dependence with a chronic obstructive pulmonary disease, patient was brought into the emergency department at [facility] after she had an episode of the abdominal pain left sided associated with generalized weakness and patient was going to the bathroom yesterday and she had a syncopal episode, she had checked her blood glucose level was high patient ended up coming to the ER at [place] and she was found to have a diabetic ketoacidosis with a bicarb level of 8 her blood glucose levels were greater than 600 she ended up going for a computed tomography scan of the abdomen that did show significant colitis of the left lower quadrant as well as significant induration of the stomach at that time. Patient was started on IV antibiotic in the form of Levaquin 500 mg IV piggyback every 24 hours as well as Flagyl 500 mg IV piggyback every 8 hours, she was placed on insulin drip, she was admitted to the hospital for further evaluation and general surgery consultation was obtained as well as GI consultation. Her lactic acid was 1.5, she was placed on IV fluid resuscitation as well and the patient will have repeated lactic acid in the next 6 hours. 02/03: Echocardiogram revealed tachycardia greater than 100 bpm, EF 65-70%, mild aortic sclerosis, trace mitral regurgitation, trace tricuspid regurgitation, no pulmonary hypertension. Patient's blood sugar at 2300 was 96 but now she is back to 324. She was given Lantus 21 units last night and is currently on Humalog 7 units before each meal and scale. Lantus will be increased to 28 units and Humalog to 8 units with breakfast and lunch and 10 units at supper. Patient's abdomen is quite tender today for which x-rays ordered showing ileus. Dulcolax suppository ordered. 02/04: Patient states that she had a small bowel movement after suppository yesterday. She denies any nausea. Abdomen is softer but continues to be tender. CAT scan of the abdomen and pelvis with contrast showed progression of abdominal wall thickening from descending colon now involving significant portions of redundant sigmoid colon and rectum. Differential includes infectious, inflammatory and ischemic etiologies. No free or mesenteric air identified. She is followed by general surgeon and GI. Blood sugars are improved but remain in the 200s. 02/05: Patient states she has still not had a bowel movement and continues to have abdominal tenderness. Abdominal x-ray ordered which shows suspected partial distal colonic obstruction due to inflammatory change or colitis at the level of the sigmoid colon. Nursing to call this to general surgeon. Blood sugars are improved his Lantus was increased to 32 units last night. Sodium is at 132. 02/06: Patient was seen by Dr. Cook yesterday and plan is to continue conservative measures. She is currently on Levaquin and Flagyl and nothing by mouth status. Blood sugars are running 164-208. Consult with Dr. Coffey added. Patient states she has not had a bowel movement. She is not passing gas. She occasionally burps. She states her pain is about the same. 02/07: Dr. Cook has advised the liquid diet, oral vancomycin for possible C. difficile colitis and repeat CAT scan in 3-[address] Coffey has evaluated the patient and discontinued Levaquin with plan to continue Flagyl and zosyn. Patient continues to have abdominal pain but not worsening. No bowel movement. 02/08: Patient is tolerating clear liquid diet with no nausea or vomiting. She has not had a bowel movement, and no flatus. She is continued on IV Flagyl and Zosyn. Patient is followed by GI with recommendations for laxatives or suppository. Patient transferred to [facility] floor. 02/09: Patient had a Dulcolax suppository and had a bowel movement which was the consistency of large meatballs and very firm. She states she had right lower quadrant pain and tenderness which was worse at the time and she does continue to have pain. She states she was nauseated earlier today but now this is resolved. She denies any vomiting. She denies having any fever. Patient has been afebrile. She is also complaining of severe pain when she passes gas. We have added in lactulose, Dulcolax oral on top of Senokot. Repeat abdominal films tomorrow. Anticipate possible discharge by tomorrow. 02/10: Patient had a small soft bowel movement and continues to have significant pain in the right lower quadrant. O'clock suppository ordered today and she did have a large bowel movement following this. Patient has been encouraged to increase her ambulation in the hallway. She did vomit once last evening. Blood sugar was low at 53 and Lantus was held today. She is tolerating a low fiber diet. Repeat CAT scan of the abdomen has been ordered by general surgeon. 02/11 and had large bowel movement yesterday evening, CAT scan of the abdomen and pelvis performed showing interval improvement in abnormality and rheumatoid change in sigmoid colon overall improvement in distal small bowel and diffuse colonic prominence with air-fluid levels will use is entertained however she continues to improve, right-sided abdominal pain, no fever, no nausea no vomiting, patient maintains large amount of stooling today, anticipate her discharge in the morning, insulin is adjusted today to conduct loose sugars. Lantus restarted and restart glimepiride 2 mg twice a day which is 50% of home dose pre-meal insulin discontinued Objective - Vital Signs Vital signs: Vital Signs Temp 97.9 F 02/11/17 15:00 Pulse 90 02/11/17 16:17 Resp 18 02/11/17 15:00 BP 104/61 02/11/17 15:00 Pulse Ox 96 02/11/17 15:00 Intake & Output 02/10/17 02/11/17 02/11/17 18:59 06:59 18:59 Weight 74.2 kg Other: Voiding Method Toilet # Voids 3 1 3 # Bowel Movements 1 - Constitutional General appearance: Present: cooperative, no acute distress - EENT Eyes: Present: EOMI, PERRLA, dentition normal, normal appearance ENT: Present: NA/AT, normal oropharynx - Neck Neck: Present: normal ROM - Respiratory Respiratory: bilateral: CTA, negative: diminished, dullness, rales, rhonchi - Cardiovascular Rhythm: regular Abnormal Heart Sounds: Absent: systolic murmur, diastolic murmur, rub, S3 Gallop , S4 Gallop, click, other - Gastrointestinal General gastrointestinal: Present: normal bowel sounds, soft, tenderness Localized gastrointestinal: tender: RLQ - Integumentary Integumentary: Present: decreased turgor, normal - Neurologic Neurologic: Present: CNII-XII intact - Musculoskeletal Musculoskeletal: Present: gait normal, strength equal bilaterally - Psychiatric Psychiatric: Present: A&O x's 3, appropriate affect, intact judgment & insight - Labs CBC & Chem 7: 02/11/17 08:37 02/11/17 08:37 Labs: Abnormal Lab Results - Last 24 Hours (Table) 02/10/17 02/10/17 02/11/17 Range/Units 17:14 20:32 08:37 RDW 15.9 H (11.5-15.5) % POC Glucose (mg/dL) 57 L 208 H (75-99) mg/dL Total Protein (6.3-8.2) g/dL Albumin (3.5-5.0) g/dL 02/11/17 02/11/17 Range/Units 08:37 11:25 RDW (11.5-15.5) % POC Glucose (mg/dL) 301 H (75-99) mg/dL Total Protein 4.8 L (6.3-8.2) g/dL Albumin 2.6 L (3.5-5.0) g/dL Microbiology - Last 24 Hours (Table) 02/06/17 16:47 Blood Culture - Preliminary Blood No Growth after 96 hours Assessment and Plan Plan: 1. Acute colitis possibly infectious, possible ischemic colitis with suspected partial distal colonic obstruction. Continue Zosyn and Flagyl piggyback GI consultation from Dr. Mcfarland patient did have a colonoscopy in October [address] Hammer that was totally normal. It did show small polyp that was benign. Low fiber diet. Repeat CAT scan of the abdomen and pelvis. Shows ileus with improvement. General surgery has signed out 02/11/2017 anticipate discharge in the morning 2. Diabetic ketoacidosis secondary to dehydration. Continue IV fluid resuscitation, insulin drip has been discontinued and patient is on Lantus, scheduled Humalog pre-meal is discontinued and Humalog scale. Started glimepiride at 2 mg twice a day with food, this is 50% of home dose 3. COPD without exacerbation. we will continue the patient on Pulmicort 1 mg nebulization twice every day, continue DuoNeb 3 mg nebulization 4 times every day. 4. CAD post left heart catheterization. Continue aspirin 81 mg once every day and pravastatin 20 mg at bedtime. 5. Diabetes mellitus type 2 uncontrolled . Currently on insulin drip, we will continue insulin drip for the next 24 hours and we'll transition to her Lantus and Humalog in the next week 4 hours. 6. Hypothyroidism. We will continue levothyroxin 125 g orally once every day. 7. RLS . Continue patient on Requip 2 mg orally bedtime along with Klonopin 0.5 mg at bedtime. 8. Degenerative disc disease of the cervical spine. Continue Flexeril 10 mg orally 3 times every day along with the gabapentin 100 mg orally 2 times every day [facility] continue [place] as needed for pain. 9. Hyperlipidemia. Continue pravastatin 20 mg at bedtime. 10. Vitamin D deficiency. Hold vitamin D supplement for now. 11. DVT prophylaxis. Continue with Lovenox 40 mg subcutaneously every 24 hours. Bilateral knee-high GOGO hose. 12. GI prophylaxis. Continue Protonix 40 mg orally once every day. 13. Estimated length of stay 2 days. 14. Full code. Discharge plan: home with [facility]. Anticipate discharge on 02/12/2017
[2017-02-11] MEDS: GLIMEPIRIDE 2 MG TAB PO SCH (17:56)
[2017-02-11 20:43] LABS: Glucose,Whole Blood 195 mg/dL (75-99)
[2017-02-11] MEDS: INSULIN GLARGINE 100 UNIT/ML 10 ML VIAL SQ SCH (21:14)
[2017-02-11] MEDS: DIAZEPAM 5 MG TAB PO SCH (21:38)
[2017-02-11] MEDS: CYCLOBENZAPRINE 10 MG TAB PO SCH (21:38)
[2017-02-11] MEDS: metFORMIN 500 MG TAB PO SCH (22:19)
[2017-02-11 23:03] VITALS: RESP 16
[2017-02-12] MEDS: metroNIDAZOLE-NS PMX 500 MG in SALINE 1 100ML.BAG IVPB SCH ×2 (00:05→09:14)
[2017-02-12] MEDS: HYDROcodone/APAP 10-325MG 1 EACH TAB PO PRN ×2 (00:49→08:36)
[2017-02-12] MEDS: METOCLOPRAMIDE 5 MG/ML 2 ML VIAL IVP SCH ×2 (04:18→08:44)
[2017-02-12] MEDS: LEVOTHYROXINE 125 MCG TAB PO SCH (06:30)
[2017-02-12 07:46] LABS: Glucose,Whole Blood 168 mg/dL (75-99)
[2017-02-12 08:17] VITALS: BP 124/73; TEMP 97
[2017-02-12] MEDS: ENOXAPARIN 40 MG/0.4 ML SYRINGE SQ SCH (08:33)
[2017-02-12] MEDS: LACTULOSE 20 GM/30 ML CUP PO SCH (08:33)
[2017-02-12] MEDS: metFORMIN 500 MG TAB PO SCH (08:34)
[2017-02-12] MEDS: GABAPENTIN 100 MG CAP PO SCH (08:34)
[2017-02-12] MEDS: SENNOSIDES-DOCUSATE SODIUM 1 EACH TAB PO SCH (08:35)
[2017-02-12] MEDS: ASPIRIN 81 MG CHEW PO SCH (08:36)
[2017-02-12] MEDS: GLIMEPIRIDE 2 MG TAB PO SCH (08:36)
[2017-02-12] MEDS: PRAVASTATIN SODIUM 20 MG TAB PO SCH (08:36)
[2017-02-12] MEDS: INSULIN LISPRO (humaLOG) 300 UNIT/3 ML VIAL SQ SCH ×2 (08:40→12:32)
[2017-02-12] MEDS: PIPERACILLIN-TAZOBACTAM 3.375 GM in DEXTROSE/WATER 1 50ML.BAG IVPB SCH (08:43)
[2017-02-12] MEDS: BISACODYL 5 MG TABLET.DR PO SCH (08:44)
[2017-02-12] MEDS: BUDESONIDE 1 MG/2 ML NEBU INHALATION SCH (08:50)
[2017-02-12] MEDS: IPRATROPIUM-ALBUTEROL 3 ML NEB INHALATION SCH (08:50)
[2017-02-12 08:53] VITALS: PULSE 88
--- NOTE | 2017-02-12 12:18 | PN ---
PROGRESS NOTE DATE OF SERVICE: 02/11/2017. REASON FOR FOLLOW UP: Colitis, possible ischemic colitis. INTERVAL HISTORY: The patient is afebrile. She is feeling better. Breathing comfortably. Has been started on soft diet. Has been tolerating so far. She did have some bowel movements with no blood or mucus in it. No chest pain. Shortness of breath. No cough. PHYSICAL EXAMINATION: Blood pressure is 104/51 with a pulse of 94, temperature is 97.9. She is 96% on room air. General description is an elderly female up in the bed in no distress. RESPIRATORY SYSTEM: Unlabored breathing. Clear to auscultation anteriorly. Heart is S1, S2. Regular rate and rhythm. ABDOMEN: Soft, no tenderness. LABS: Hemoglobin 11.3, white count 4.6 with a BUN of 9, creatinine 0.79. DIAGNOSTIC IMPRESSION AND PLAN: Patient with colitis with question of possible ischemia, seems to have shown overall clinical as well as the radiological improvement. Plan at this time is to finish therapy with a short course of oral Augmentin and continue supportive care. MMODL / IJN: [id number] /
[2017-02-12 12:21] LABS: Glucose,Whole Blood 234 mg/dL (75-99)
--- NOTE | 2017-02-12 16:51 | P.DS ---
Providers Date of admission: 02/02/17 07:07 Expected date of discharge: 02/12/17 Attending physician: Tanisha Orozco Consults: 02/02/17 07:10 Consult Physician Routine Consulting Provider: Yulisa Munguia Consult Reason/Comments: abdominal pain. possible colitis Do you want consulting provider notified?: Yes 02/06/17 08:59 Consult Physician Routine Consulting Provider: Gladys Coffey Consult Reason/Comments: colitis Do you want consulting provider notified?: Yes Primary care physician: Erna Eugene [facility] Course: This is a 66-year-old female in of Dr. Eugene with a previous medical history significant for a mild coronary artery disease involving the LAD 20-30% , LCx 20-30%, and ostial lesion of the diagonal branch of 40%, diabetes mellitus 2, chronic tobacco use and dependence with a chronic obstructive pulmonary disease, patient was brought into the emergency department at [facility] after she had an episode of the abdominal pain left sided associated with generalized weakness and patient was going to the bathroom yesterday and she had a syncopal episode, she had checked her blood glucose level was high patient ended up coming to the ER at [place] and she was found to have a diabetic ketoacidosis with a bicarb level of 8 her blood glucose levels were greater than 600 she ended up going for a computed tomography scan of the abdomen that did show significant colitis of the left lower quadrant as well as significant induration of the stomach at that time. Patient was started on IV antibiotic in the form of Levaquin 500 mg IV piggyback every 24 hours as well as Flagyl 500 mg IV piggyback every 8 hours, she was placed on insulin drip, she was admitted to the hospital for further evaluation and general surgery consultation was obtained as well as GI consultation. Her lactic acid was 1.5, she was placed on IV fluid resuscitation as well and the patient will have repeated lactic acid in the next 6 hours. 02/03: Echocardiogram revealed tachycardia greater than 100 bpm, EF 65-70%, mild aortic sclerosis, trace mitral regurgitation, trace tricuspid regurgitation, no pulmonary hypertension. Patient's blood sugar at 2300 was 96 but now she is back to 324. She was given Lantus 21 units last night and is currently on Humalog 7 units before each meal and scale. Lantus will be increased to 28 units and Humalog to 8 units with breakfast and lunch and 10 units at supper. Patient's abdomen is quite tender today for which x-rays ordered showing ileus. Dulcolax suppository ordered. 02/04: Patient states that she had a small bowel movement after suppository yesterday. She denies any nausea. Abdomen is softer but continues to be tender. CAT scan of the abdomen and pelvis with contrast showed progression of abdominal wall thickening from descending colon now involving significant portions of redundant sigmoid colon and rectum. Differential includes infectious, inflammatory and ischemic etiologies. No free or mesenteric air identified. She is followed by general surgeon and GI. Blood sugars are improved but remain in the 200s. 02/05: Patient states she has still not had a bowel movement and continues to have abdominal tenderness. Abdominal x-ray ordered which shows suspected partial distal colonic obstruction due to inflammatory change or colitis at the level of the sigmoid colon. Nursing to call this to general surgeon. Blood sugars are improved his Lantus was increased to 32 units last night. Sodium is at 132. 02/06: Patient was seen by Dr. Cook yesterday and plan is to continue conservative measures. She is currently on Levaquin and Flagyl and nothing by mouth status. Blood sugars are running 164-208. Consult with Dr. Coffey added. Patient states she has not had a bowel movement. She is not passing gas. She occasionally burps. She states her pain is about the same. 02/07: Dr. Cook has advised the liquid diet, oral vancomycin for possible C. difficile colitis and repeat CAT scan in 3-[address] Coffey has evaluated the patient and discontinued Levaquin with plan to continue Flagyl and zosyn. Patient continues to have abdominal pain but not worsening. No bowel movement. 02/08: Patient is tolerating clear liquid diet with no nausea or vomiting. She has not had a bowel movement, and no flatus. She is continued on IV Flagyl and Zosyn. Patient is followed by GI with recommendations for laxatives or suppository. Patient transferred to [facility] floor. 02/09: Patient had a Dulcolax suppository and had a bowel movement which was the consistency of large meatballs and very firm. She states she had right lower quadrant pain and tenderness which was worse at the time and she does continue to have pain. She states she was nauseated earlier today but now this is resolved. She denies any vomiting. She denies having any fever. Patient has been afebrile. She is also complaining of severe pain when she passes gas. We have added in lactulose, Dulcolax oral on top of Senokot. Repeat abdominal films tomorrow. Anticipate possible discharge by tomorrow. 02/10: Patient had a small soft bowel movement and continues to have significant pain in the right lower quadrant. O'clock suppository ordered today and she did have a large bowel movement following this. Patient has been encouraged to increase her ambulation in the hallway. She did vomit once last evening. Blood sugar was low at 53 and Lantus was held today. She is tolerating a low fiber diet. Repeat CAT scan of the abdomen has been ordered by general surgeon. 02/11 and had large bowel movement yesterday evening, CAT scan of the abdomen and pelvis performed showing interval improvement in abnormality and rheumatoid change in sigmoid colon overall improvement in distal small bowel and diffuse colonic prominence with air-fluid levels will use is entertained however she continues to improve, right-sided abdominal pain, no fever, no nausea no vomiting, patient maintains large amount of stooling today, anticipate her discharge in the morning, insulin is adjusted today to conduct loose sugars. Lantus restarted and restart glimepiride 2 mg twice a day which is 50% of home dose pre-meal insulin discontinued Discharge diagnosis and care 1. Acute colitis possibly infectious, possible ischemic colitis with suspected partial distal colonic obstruction. Continue Zosyn and Flagyl piggyback GI consultation from Dr. Mcfarland patient did have a colonoscopy in October [address] Hammer that was totally normal. It did show small polyp that was benign. Low fiber diet. Repeat CAT scan of the abdomen and pelvis shows ileus with improvement. General surgery has signed out 02/11/2017 anticipate discharge in the morning of 02/12 with oral antibiotics ciprofloxacin and Flagyl outpatient follow-up with Dr. Dumont, would require repeat endoscopy in approximately 8 weeks 2. Diabetic ketoacidosis with diabetes mellitus type 2 uncontrolled secondary to dehydration. IV fluid resuscitation, insulin drip has been discontinued and patient is on Lantus, scheduled Humalog pre-meal is discontinued and Humalog scale. Started glimepiride at 2 mg twice a day with food, this is 50% of home dose, no change on discharge, Lantus at 24 units at bedtime 3. COPD without exacerbation. we will continue the patient on Pulmicort 1 mg nebulization twice every day, continue DuoNeb 3 mg nebulization 4 times every day. 4. CAD post left heart catheterization. Continue aspirin 81 mg once every day and pravastatin 20 mg at bedtime. 5. Hypothyroidism. We will continue levothyroxin 125 g orally once every day. 6. RLS . Continue patient on Requip 2 mg orally bedtime along with Klonopin 0.5 mg at bedtime. Discontinue Valium at home 7. Degenerative disc disease of the cervical spine. Continue Flexeril 10 mg orally 3 times every day along with the gabapentin 100 mg orally 2 times every day [place] continue [place] as needed for pain. 8. Hyperlipidemia. Continue pravastatin 20 mg at bedtime. 9. Vitamin D deficiency. Hold vitamin D supplement for now. 10. DVT prophylaxis. Continue with Lovenox 40 mg subcutaneously every 24 hours. Bilateral knee-high GOGO hose. 11. GI prophylaxis. Continue Protonix 40 mg orally once every day. Discharge Medication List Beclomethasone Dipropionate [Qvar 80 mcg/puff] 2 puff INHALATION RT-BID [History] HYDROcodone/APAP 10-325MG [[place] 10-325] 1 tab PO Q4-6H PRN 05/16/15 [History] Ipratropium Nebulized [Atrovent Nebulized] 0.5 mg INHALATION RT-Q6H 05/16/15 [ History] metFORMIN HCL [metFORMIN HCL ER] 750 mg PO BID 05/16/15 [History] rOPINIRole HCL [Requip] 2 mg PO HS 05/16/15 [History] Levothyroxine Sodium [Synthroid] 125 mcg PO DAILY 05/17/16 [History] Cyclobenzaprine HCl 10 mg PO HS 10/28/16 [History] Albuterol Sulfate [Proair Hfa] 2 puff INHALATION RT-Q4H PRN 02/02/17 [History] Aspirin EC [Ecotrin Low Dose] 81 mg PO DAILY 02/02/17 [History] Bisacodyl 10 mg PO DAILY PRN 02/02/17 [History] Ergocalciferol [Vitamin D2 (DRISDOL)] 50,000 unit PO Q7D 02/02/17 [History] Fluticasone Nasal [place] [Flonase Nasal [place]] 1 spr EA NOSTRIL BID 02/02/17 [ History] Pravastatin Sodium [Pravachol] 20 mg PO DAILY 02/02/17 [History] Ciprofloxacin HCl [Cipro] 500 mg PO Q12HR #14 tablet 02/12/17 [Rx] Gabapentin [Neurontin] 100 mg PO TID #90 02/12/17 [Rx] Glimepiride [Amaryl] 2 mg PO AC-BID #0 02/12/17 [Rx] Insulin Glargine [Lantus] 24 unit SQ HS vial 02/12/17 [Rx] Lactulose [Cephulac] 30 gm PO BID #60 dose 02/12/17 [Rx] Sennosides-Docusate Sodium [Senokot-S] 2 each PO BID #60 tab 02/12/17 [Rx] clonazePAM [KlonoPIN] 0.5 mg PO HS PRN #30 tab 02/12/17 [Rx] metroNIDAZOLE [Flagyl] 500 mg PO TID #20 tab 02/12/17 [Rx] Patient Condition at Discharge: Serious Plan - Discharge Summary New Discharge Prescriptions: New Ciprofloxacin HCl [Cipro] 500 mg PO Q12HR #14 tablet clonazePAM [KlonoPIN] 0.5 mg PO HS PRN #30 tab PRN Reason: Anxiety Insulin Glargine [Lantus] 24 unit SQ HS vial Lactulose [Cephulac] 30 gm PO BID #60 dose metroNIDAZOLE [Flagyl] 500 mg PO TID #20 tab Sennosides-Docusate Sodium [Senokot-S] 2 each PO BID #60 tab Continue rOPINIRole HCL [Requip] 2 mg PO HS Beclomethasone Dipropionate [Qvar 80 mcg/puff] 2 puff INHALATION RT-BID metFORMIN HCL [metFORMIN HCL ER] 750 mg PO BID HYDROcodone/APAP 10-325MG [[place] 10-325] 1 tab PO Q4-6H PRN PRN Reason: Pain Ipratropium Nebulized [Atrovent Nebulized] 0.5 mg INHALATION RT-Q6H Levothyroxine Sodium [Synthroid] 125 mcg PO DAILY Cyclobenzaprine HCl 10 mg PO HS Fluticasone Nasal [place] [Flonase Nasal [place]] 1 spr EA NOSTRIL BID Ergocalciferol [Vitamin D2 (DRISDOL)] 50,000 unit PO Q7D Albuterol Sulfate [Proair Hfa] 2 puff INHALATION RT-Q4H PRN PRN Reason: Shortness Of Breath Pravastatin Sodium [Pravachol] 20 mg PO DAILY Aspirin EC [Ecotrin Low Dose] 81 mg PO DAILY Bisacodyl 10 mg PO DAILY PRN PRN Reason: Constipation Gabapentin [Neurontin] 100 mg PO TID #90 Changed Glimepiride [Amaryl] 2 mg PO AC-BID #0 Discontinued clonazePAM [KlonoPIN] 0.5 - 1 mg PO DAILY PRN PRN Reason: Anxiety Furosemide [Lasix] 20 mg PO DAILY Diazepam [Valium] 5 mg PO HS Insulin Glargine [Lantus] 20 unit SQ HS Potassium Chloride ER [K-Dur 10] 10 meq PO [id number] Discharge Medication List Beclomethasone Dipropionate [Qvar 80 mcg/puff] 2 puff INHALATION RT-BID [History] HYDROcodone/APAP 10-325MG [[place] 10-325] 1 tab PO Q4-6H PRN 05/16/15 [History] Ipratropium Nebulized [Atrovent Nebulized] 0.5 mg INHALATION RT-Q6H 05/16/15 [ History] metFORMIN HCL [metFORMIN HCL ER] 750 mg PO BID 05/16/15 [History] rOPINIRole HCL [Requip] 2 mg PO HS 05/16/15 [History] Levothyroxine Sodium [Synthroid] 125 mcg PO DAILY 05/17/16 [History] Cyclobenzaprine HCl 10 mg PO HS 10/28/16 [History] Albuterol Sulfate [Proair Hfa] 2 puff INHALATION RT-Q4H PRN 02/02/17 [History] Aspirin EC [Ecotrin Low Dose] 81 mg PO DAILY 02/02/17 [History] Bisacodyl 10 mg PO DAILY PRN 02/02/17 [History] Ergocalciferol [Vitamin D2 (DRISDOL)] 50,000 unit PO Q7D 02/02/17 [History] Fluticasone Nasal [place] [Flonase Nasal [place]] 1 spr EA NOSTRIL BID 02/02/17 [ History] Pravastatin Sodium [Pravachol] 20 mg PO DAILY 02/02/17 [History] Ciprofloxacin HCl [Cipro] 500 mg PO Q12HR #14 tablet 02/12/17 [Rx] Gabapentin [Neurontin] 100 mg PO TID #90 02/12/17 [Rx] Glimepiride [Amaryl] 2 mg PO AC-BID #0 02/12/17 [Rx] Insulin Glargine [Lantus] 24 unit SQ HS vial 02/12/17 [Rx] Lactulose [Cephulac] 30 gm PO BID #60 dose 02/12/17 [Rx] Sennosides-Docusate Sodium [Senokot-S] 2 each PO BID #60 tab 02/12/17 [Rx] clonazePAM [KlonoPIN] 0.5 mg PO HS PRN #30 tab 02/12/17 [Rx] metroNIDAZOLE [Flagyl] 500 mg PO TID #20 tab 02/12/17 [Rx] Follow up Appointment(s)/Referral(s): Bon Mitchell MD [STAFF PHYSICIAN] - 2 Weeks [facility], [NON-STAFF] - Erna Eugene MD [Primary Care Provider] - 1 Week Shellie Mcfarland MD [STAFF PHYSICIAN] - 3 Weeks (Outpatient colonoscopy in 6-8 weeks) Patient Instructions/Handouts: Diabetic Ketoacidosis (DC), Ischemic Colitis (DC ) Activity/Diet/Wound Care/Special Instructions: Diabetic low fiber soft diet. NO smoking, cessation information provided. Discharge Disposition: HOME SELF-CARE
== END 2017-02-12 13:55 | disposition home or self-care (01) | DRG 391 ==
LOC: EC 04:37 → 6SEL 07:07 → 4MS4W 02-08 11:13
PROVIDERS: ADMIT Internal Medicine; ATTEND Internal Medicine
DX: A09 Infectious gastroenteritis and colitis, unspecified (principal); E13.10 Other specified diabetes mellitus with ketoacidosis without coma; K55.9 Vascular disorder of intestine, unspecified; K56.7 Ileus, unspecified; I24.9 Acute ischemic heart disease, unspecified; I51.81 Takotsubo syndrome; E11.42 Type 2 diabetes mellitus with diabetic polyneuropathy; I08.1 Rheumatic disorders of both mitral and tricuspid valves; E55.9 Vitamin D deficiency, unspecified; J44.9 Chronic obstructive pulmonary disease, unspecified; I25.10 Atherosclerotic heart disease of native coronary artery without angina pectoris; E03.9 Hypothyroidism, unspecified; G25.81 Restless legs syndrome; M50.30 Other cervical disc degeneration, unspecified cervical region; E78.5 Hyperlipidemia, unspecified; G47.33 Obstructive sleep apnea (adult) (pediatric); I73.9 Peripheral vascular disease, unspecified; F17.200 Nicotine dependence, unspecified, uncomplicated; E86.0 Dehydration; M79.7 Fibromyalgia; K59.00 Constipation, unspecified; W19.XXXA Unspecified fall, initial encounter; N39.3 Stress incontinence (female) (male); F41.9 Anxiety disorder, unspecified; F32.9 Major depressive disorder, single episode, unspecified; R00.0 Tachycardia, unspecified; D12.2 Benign neoplasm of ascending colon; Z96.1 Presence of intraocular lens; Z86.69 Personal history of other diseases of the nervous system and sense organs; Z98.41 Cataract extraction status, right eye; Z79.82 Long term (current) use of aspirin; Z98.42 Cataract extraction status, left eye; Z82.49 Family history of ischemic heart disease and other diseases of the circulatory system; Z90.710 Acquired absence of both cervix and uterus; Z86.010 Personal history of colon polyps; Z79.4 Long term (current) use of insulin; Z82.0 Family history of epilepsy and other diseases of the nervous system; Z82.5 Family history of asthma and other chronic lower respiratory diseases; I25.2 Old myocardial infarction; Z79.51 Long term (current) use of inhaled steroids; Z79.899 Other long term (current) drug therapy; Z87.01 Personal history of pneumonia (recurrent); Z85.41 Personal history of malignant neoplasm of cervix uteri
CPT/HCPCS: 36415; 74020; 74176; 74177; 80048; 80051; 80053; 81001; 82009; 82150; 82565; 82947; 83036; 83605; 83690; 83735; 84100; 84484; 84520; 85025; 85027; 85652; 86140; 87040; 93005; 93306; 94640; 96361; 96365; 96366; 96367; 96375; 99285

== ENCOUNTER 2017-12-01 13:34 | Emergency (ER) | payer MEDICARE ==
[2017-12-01] MEDS ORDERED: MORPHINE SULFATE 2 MG/ML SYRINGE IVP STA (13:50)
[2017-12-01] MEDS ORDERED: ONDANSETRON 4 MG/2 ML VIAL IVP STA (13:50)
[2017-12-01] MEDS ORDERED: SODIUM CHLORIDE 0.9% 1,000 ML IV STA ×2 (13:50)
--- NOTE | 2017-12-01 13:53 | ED ---
General Adult HPI - General Chief complaint: Abdominal Pain Stated complaint: Abd.pain Time Seen by Provider: 12/01/17 13:42 Source: patient, RN notes reviewed Mode of arrival: ambulatory Limitations: no limitations - History of Present Illness Initial comments: Patient 67-year-old female presented to the emergency room today with a chief complaint of increased abdominal pain over the last 3-4 days. Patient described the pain as "sharp". Currently rates it 10/10 located in the side lower abdomen. Patient does admit to pain of colitis in the past but states this feels worse. She does admit she was treated for upper respiratory infection was on antibiotics that she last took antibiotics for 4 days ago. Patient is not sure of the name of the antibiotic. The patient admits to diarrhea. She denies any other complaints or associated symptoms. Patient denies any recent fever, chills, shortness of breath, chest pain, back pain, numbness or tingling, dysuria or hematuria, constipation, headaches or visual changes, or any other complaints. - Related Data Home Medications Medication Instructions Recorded Confirmed HYDROcodone/APAP 10-325MG [[place] 1 tab PO TID PRN 05/16/15 12/01/17 10-325] Ipratropium Nebulized [Atrovent 0.5 mg INHALATION RT-Q6H 05/16/15 12/01/17 Nebulized] metFORMIN HCL [metFORMIN HCL ER] 750 mg PO BID 05/16/15 12/01/17 rOPINIRole HCL [Requip] 2 mg PO HS 05/16/15 12/01/17 Levothyroxine Sodium [Synthroid] 125 mcg PO DAILY 05/17/16 12/01/17 Albuterol Sulfate [Proair Hfa] 2 puff INHALATION RT-Q4H PRN 02/02/17 12/01/17 Arformoterol Tartrate [Brovana] 15 mcg INHALATION RT-BID 12/01/17 12/01/17 Budesonide [Pulmicort] 0.5 mg INHALATION RT-BID 12/01/17 12/01/17 Budesonide-Formot 160-4.5 Mcg 2 puff INHALATION RT-BID 12/01/17 12/01/17 [Symbicort 160-4.5 Mcg Inhaler] Diazepam [Valium] 5 mg PO HS PRN 12/01/17 12/01/17 Fluticasone/Salmeterol [Advair 2 inhalation PO RT-BID 12/01/17 12/01/17 250-50 Diskus] Glimepiride [Amaryl] 4 mg PO AC-BID 12/01/17 12/01/17 Naldemedine Tosylate [Symproic] 0.2 mg PO DAILY 12/01/17 12/01/17 Ondansetron HCl [Zofran] 4 mg PO Q4H PRN 12/01/17 12/01/17 Previous Rx's Medication Instructions Recorded metroNIDAZOLE [Flagyl] 500 mg PO TID #20 tab 02/12/17 Allergies Allergy/AdvReac Type Severity Reaction Status Date / Time No Known Allergies Allergy Verified 12/01/17 13:57 Review of Systems ROS Statement: Those systems with pertinent positive or pertinent negative responses have been documented in the HPI. ROS Other: All systems not noted in ROS Statement are negative. Past Medical History Past Medical History: Cancer, Chest Pain / Angina, COPD, Diabetes Mellitus, Fibromyalgia, Hyperlipidemia, Pneumonia, Sleep Apnea/CPAP/BIPAP, Thyroid Disorder, Vascular Disorder Additional Past Medical History / Comment(s): Takosubo syndrome 2013, cervical cancer/hysterectomy, IDDM type II, neuropathy bilateral legs on occasion, JOSE without device, cervical DDD, past fractured pelvis, RLS, PVD, hypothyroid, benign colon polyyps-removed. Last Myocardial Infarction Date:: 2014? History of Any Multi-Drug Resistant Organisms: None Reported Past Surgical History: Section, Heart Catheterization, Hysterectomy, Tubal Ligation Additional Past Surgical History / Comment(s): 1 fallopian tube removed d/t ectopic , bilateral cataract removal with lens implants, colonoscopies/ benign polypectomies. Past Anesthesia/Blood Transfusion Reactions: Previous Problems w/ Anesthesia Additional Past Anesthesia/Blood Transfusion Reaction / Comment(s): States felt pain with X1. Past Psychological History: Anxiety, Depression Smoking Status: Current every day smoker Past Alcohol Use History: None Reported Past Drug Use History: Marijuana - Past Family History Father Family Medical History: Coronary Artery Disease (CAD) Additional Family Medical History / Comment(s): Father at the age of 52 yrs from a ND. Sister(s) Family Medical History: COPD Mother Family Medical History: Seizure Disorder Additional Family Medical History / Comment(s): BRAIN ANEURYSM General Exam - General Exam Comments Initial Comments: General: The patient is awake and alert, in mild discomfort. Eye: Pupils are equal, round and reactive to light, extra-ocular movements are intact. No nystagmus. There is normal conjunctiva bilaterally. No signs of icterus. Ears, nose, mouth and throat: There are moist mucous membranes and no oral lesions. Neck: The neck is supple, there is no tenderness or JVD. Cardiovascular: There is a regular rate and rhythm. No murmur, rub or gallop is appreciated. Respiratory: Lungs are clear to auscultation, respirations are non-labored, breath sounds are equal. No wheezes, stridor, rales, or rhonchi. Gastrointestinal: Soft on palpation. Patient does have tenderness left side of the abdomen greatest in left lower quadrant. No rebound or guarding. Musculoskeletal: Normal ROM, no tenderness. Strength 5/5. Sensation intact. Pulses equal bilaterally 2+. Neurological: A&O x 3. CN II-XII intact, There are no obvious motor or sensory deficits. Coordination appears grossly intact. Speech is normal. Skin: Skin is warm and dry and no rashes or lesions are noted. Psychiatric: Cooperative, appropriate mood & affect, normal judgment. Limitations: no limitations Course Vital Signs 12/01/17 12/01/17 13:38 16:00 Temperature 98.8 F Pulse Rate 88 89 Respiratory 18 20 Rate Blood Pressure 138/81 141/56 O2 Sat by Pulse 97 99 Oximetry Medical Decision Making - Medical Decision Making Patient's CT of the abdomen and pelvis has been reviewed and shows 1. Severe stool. ( Shows variable diffuse dilation up to 6.2 cm) and equalization of the distal half of the small bowel. Findings suggested pronounced stasis or ileus. 2. Mild circumferential wall thickening distal sigmoid and rectum may reflect a mild colitis. 3. Small hiatal hernia as read by radiologist Dr. Damico. Patient's labs been reviewed does show sodium 1:30 which is similar to previous lab findings. Patient's blood glucose elevated than 300. Patient does have 2+ ketones. Patient was given a bolus written emergency room. Patient's alk phos is elevated 160 does have a history of cervical cancer with previous hysterectomy. Patient given enema here in the emergency room. Patient was feeling better after enema. States she states she some blood in the bowel movement. Sensation was a small amount. Patient will be discharged home given magnesium citrate and advised to follow-up the family doctor next 2 days. Advised return here to the emergency room for any symptoms increase or worsen. Patient apparently a pansensitive standing. Case discussed in detail with attending physician Dr. Bond. - Lab Data Result diagrams: 12/01/17 14:20 12/01/17 14:20 Lab Results 12/01/17 12/01/17 12/01/17 Range/Units 14:20 14:20 15:46 WBC 7.3 (3.8-10.6) k/uL RBC 4.58 (3.80-5.40) m/uL Hgb 13.6 (11.4-16.0) gm/dL Hct 41.4 (34.0-46.0) % MCV 90.3 (80.0-100.0) fL MCH 29.7 (25.0-35.0) pg MCHC 32.9 (31.0-37.0) g/dL RDW 15.9 H (11.5-15.5) % Plt Count 264 (150-450) k/uL Neutrophils % 80 % Lymphocytes % 14 % Monocytes % 4 % Eosinophils % 1 % Basophils % 0 % Neutrophils # 5.8 (1.3-7.7) k/uL Lymphocytes # 1.0 (1.0-4.8) k/uL Monocytes # 0.3 (0-1.0) k/uL Eosinophils # 0.1 (0-0.7) k/uL Basophils # 0.0 (0-0.2) k/uL Sodium 130 L (137-145) mmol/L Potassium 5.0 (3.5-5.1) mmol/L Chloride 93 L (98-107) mmol/L Carbon Dioxide 25 (22-30) mmol/L Anion Gap 12 mmol/L BUN 25 H (7-17) mg/dL Creatinine 0.84 (0.52-1.04) mg/dL Est GFR (CKD-EPI)AfAm 84 (>60 ml/min/1.73 sqM) Est GFR (CKD-EPI)NonAf 73 (>60 ml/min/1.73 sqM) Glucose 397 H (74-99) mg/dL Calcium 9.2 (8.4-10.2) mg/dL Total Bilirubin 0.8 (0.2-1.3) mg/dL AST 16 (14-36) U/L ALT 24 (9-52) U/L Alkaline Phosphatase 162 H (38-126) U/L Total Protein 5.6 L (6.3-8.2) g/dL Albumin 3.7 (3.5-5.0) g/dL Lipase 161 (23-300) U/L Urine Color Light Yellow Urine Appearance Clear (Clear) Urine pH 5.5 (5.0-8.0) Ur Specific [place] 1.034 (1.001-1.035) Urine Protein Negative (Negative) Urine Glucose (UA) 4+ H (Negative) Urine Ketones 2+ H (Negative) Urine Blood Trace H (Negative) Urine Nitrite Negative (Negative) Urine Bilirubin Negative (Negative) Urine Urobilinogen <2.0 (<2.0) mg/dL Ur Leukocyte Esterase Negative (Negative) Urine RBC <1 (0-5) /hpf Disposition Clinical Impression: Abdominal pain, Colitis Disposition: HOME SELF-CARE Condition: Good Instructions: Abdominal Pain (ED) Additional Instructions: Please use medication as discussed. Please follow-up with family doctor in the next 2 days of symptoms have not improved. Please return to emergency room if the symptoms increase or worsen or for any other concerns. Is patient prescribed a controlled substance at d/c from ED?: No Referrals: Erna Eugene MD [Primary Care Provider] - 1-2 days Time of Disposition: 17:46
[2017-12-01 14:35] LABS: Basophils % (A) 0 %; Eosinophils # (A) 0.1 k/uL (0-0.7); Eosinophils % (A) 1 %; HCT 41.4 % (34.0-46.0); HGB 13.6 gm/dL (11.4-16.0); Lymphocytes % (A) 14 %; MCH 29.7 pg (25.0-35.0); MCHC 32.9 g/dL (31.0-37.0); MCV 90.3 fL (80.0-100.0); Mean Platelet Volume 6.9; Monocytes # (A) 0.3 k/uL (0-1.0); Monocytes % (A) 4 %; Neutrophils # (A) 5.8 k/uL (1.3-7.7); Neutrophils % (A) 80 %; Platelet Count 264 k/uL (150-450); RBC 4.58 m/uL (3.80-5.40); RDW 15.9 % (11.5-15.5); WBC 7.3 k/uL (3.8-10.6)
[2017-12-01 14:43] LABS: Albumin 3.7 g/dL (3.5-5.0); Calcium 9.2 mg/dL (8.4-10.2); Total Bilirubin 0.8 mg/dL (0.2-1.3); Total Protein 5.6 g/dL (6.3-8.2)
--- NOTE | 2017-12-01 15:29 | CT ---
EXAMINATION TYPE: CT abdomen pelvis w con DATE OF EXAM: 12/01/2017 COMPARISON: 02/10/2017 HISTORY: 67 year-old female left sided abdominal pain with vomiting and diarrhea. TECHNIQUE: Contiguous axial scanning of the abdomen and pelvis following administration of 100 ml Iso cassandra 300 IV contrast. Delayed images through the kidneys and coronal/sagittal reconstructions perform ed. CT DLP: 557.2 mGycm Automated exposure control for dose reduction was used. FINDINGS: Heart normal size without pericardial effusion. Lung bases clear without pleural effusion. Small hiatal hernia. No focal liver lesion or biliary ductal dilatation. Portal venous system is patent. Gallbladder, adrenal glands, kidneys, and pancreas appear within normal limits. Small hilar splenule. Stable bilobed 1.7 cm cyst upper pole of the spleen. No dilated small bowel, free fluid, or free air. There is fecalization of mid to distal small bowel l oops suggesting stasis. Large overall stool burden with very redundant sigmoid colon circumferential wall thickening of the distal sigmoid and rectum. Colon is variably distended measuring up to 6.2 cm. No mesenteric or retroperitoneal lymphadenopathy. Normal appendix, axial image 64 and coronal image 59. Prominent distention of the urinary bladder to 12.2 cm. Pelvic floor relaxation. Uterus surgically ab sent. No abnormal fluid collection seen in the pelvis or pelvic lymphadenopathy. Bones: Multiple healed fracture base of the pelvis and mild degenerative changes at the hips. No osse ous destructive process. IMPRESSION: 1. SEVERE STOOL BURDEN (COLON SHOWS VARIABLE DIFFUSE DILATATION UP TO 6.2 CM) AND FECALIZATION OF THE DISTAL HALF OF THE SMALL BOWEL. FINDINGS SUGGEST A PRONOUNCED STASIS OR ILEUS. 2. MILD CIRCUMFERENTIAL WALL THICKENING DISTAL SIGMOID AND RECTUM MAY REFLECT A MILD COLITIS. 3. SMALL HIATAL HERNIA.
[2017-12-01 16:00] LABS: Appearance,Urine Clear (Clear); Bilirubin,Urine Negative (Negative); Blood,Urine Trace (Negative); Color,Urine Light Yellow; Glucose,Urine (UA) 4+ (Negative); Leukocyte Esterase,Urine Negative (Negative); Nitrite,Urine Negative (Negative); PH, Urine 5.5 (5.0-8.0); Protein,Urine Negative (Negative); RBC,Urine <1 /hpf (0-5); Specific Gravity,Urine 1.034 (1.001-1.035); Urobilinogen,Urine <2.0 mg/dL (<2.0)
[2017-12-01 16:04] LABS: Ketones,Urine 2+ (Negative)
[2017-12-01] MEDS ORDERED: MAGNESIUM CITRATE 296 ML BOTTLE PO ONE (17:46)
[2017-12-01 18:39] VITALS: BP 138/70; PULSE 82; RESP 18; TEMP 98.2
== END 2017-12-01 18:05 | disposition home or self-care (01) ==
LOC: EC 13:34
DX: K52.9 Noninfective gastroenteritis and colitis, unspecified (principal); K44.9 Diaphragmatic hernia without obstruction or gangrene; R94.5 Abnormal results of liver function studies; J44.9 Chronic obstructive pulmonary disease, unspecified; M79.7 Fibromyalgia; E78.5 Hyperlipidemia, unspecified; E03.9 Hypothyroidism, unspecified; E11.40 Type 2 diabetes mellitus with diabetic neuropathy, unspecified; F32.9 Major depressive disorder, single episode, unspecified; F41.9 Anxiety disorder, unspecified; F17.200 Nicotine dependence, unspecified, uncomplicated; Z85.41 Personal history of malignant neoplasm of cervix uteri; Z79.51 Long term (current) use of inhaled steroids; Z79.84 Long term (current) use of oral hypoglycemic drugs; Z79.899 Other long term (current) drug therapy; Z95.818 Presence of other cardiac implants and grafts; Z90.710 Acquired absence of both cervix and uterus
CPT/HCPCS: 36415; 80053; 83690; 85025; 81001; 87040; 87086; 74177; 99284; 96374; 96375; 96361 ×4; J2405; J2270; Q9967

== ENCOUNTER → 2018-06-23 | Outpatient (CLI) | payer MEDICARE ==
[2018-06-23 15:10] LABS: Blood Urea Nitrogen 21 mg/dL (7-17)
--- NOTE | 2018-06-23 16:05 | CT ---
EXAMINATION TYPE: CT abdomen w con DATE OF EXAM: 06/23/2018 COMPARISON: 12/01/2017 HISTORY: LLQ pain, pt felt a lump at one point, associated w/diarrhea CT DLP: 459.30 mGycm CONTRAST: CT scan of the abdomen is performed with Oral Contrast and with IV Contrast, patient injected with 1 00 mL of Isovue 300. FINDINGS: LUNG BASES-: No visible nodule. No infiltrate. LIVER/GB: No calcified gallstones. 1.2 cm cyst adjacent to the gallbladder within the left hepatic lobe medial segment. Biliary tree is of normal caliber. PANCREAS: No inflammation. No distinct mass. SPLEEN: No splenic enlargement. Splenic cyst is stable. ADRENALS: No nodule. No thickening. KIDNEYS/BLADDER: No hydronephrosis. No nephrolithiasis. No distinct renal mass. Urinary bladder g rossly unremarkable. BOWEL: Normal appendix. Normal bowel caliber. No inflammation. Moderate to severe fecal stasis. LYMPH NODES: No greater than 1cm abdominal or pelvic lymph nodes are appreciated. AORTA: No significant abnormality. OSSEOUS STRUCTURES: No significant abnormality is seen. OTHER: No significant additional abnormality is seen. IMPRESSION: 1. Moderate to severe fecal stasis.
== END | disposition home or self-care (01) ==
LOC: RADCTMAIN 14:27
PROVIDERS: ATTEND Family Medicine
DX: K56.41 Fecal impaction (principal); K43.6 Other and unspecified ventral hernia with obstruction, without gangrene
CPT/HCPCS: 82565; 84520; 74160; Q9967